=== PATIENT | male | born 1965 | race African-American/Black ===

== ENCOUNTER → 2023-09-20 11:20 | Outpatient (BNV) | payer MEDICAID, OTHER, SELFPAY | PROVIDERS: Visit Provider Internal Medicine Medical Oncology | DX: C90.30 Solitary plasmacytoma not having achieved remission (principal) | CPT/HCPCS: 99204; 99213 ==

== ENCOUNTER 2024-01-14 10:10 | Outpatient (REF) | payer OTHER, SELFPAY ==
--- NOTE | ~2024-01-14 | PE_ITS ---
EXAMINATION: PET/CT FUSION SKULL TO THIGH CLINICAL INDICATIONS: History of solitary plasmacytoma, restaging. COMPARISON: Outside PET study 08/07/2019 and last 02/25/[address] TECHNIQUE: Following intravenous administration of 19.6 mCi-18 FDG in right antecubital vein, whole-body PET scan from skull base to proximal thigh was obtained approximately 56 minutes later. 3-D CT imaging was obtained for correlative imaging without oral or IV contrast. Color fusion images were performed on a separate workstation and available for interpretation. Baseline glucose measures 10.3 mg/dL. DLP: 916 mGy-cm. FINDINGS: SKULL BASE: There is no abnormal metabolic activity seen in the skull base or visualized brain. On CT visualized intracranial brain parenchyma is unremarkable. The paranasal sinuses are well aerated and clear. NECK: There is abnormal metabolic activity seen in the left lateral pharyngeal wall with an SUV measuring 5.6 on axial PET slice 236/3. There is corresponding thickening left lateral pharyngeal wall on axial slice 236/2. Approximately the same plane on axial PET study there is a left lateral neck lymph node metabolic activity with SUV measurement of 3.7 which corresponds to a lymph node measuring [address] slice 235/2. There is a nonspecific punctate metabolic activity along the posterior wall of nasopharynx with SUV of 5.0 on axial PET slice 250/3. There is no corresponding abnormality seen on CT imaging. There is normal metabolic activity seen in bilateral thyroid lobes and anterior floor of the tongue related to muscular activity. The abnormal metabolic activity on the present scan is new since last PET study 02/25/2023. CHEST: No abnormal metabolic activity seen in the lung parenchyma, mediastinum, pleura or the axilla. The chest wall is unremarkable as well. On CT imaging the lungs are well expanded and clear. No pulmonary nodule, mass or consolidation seen. The mediastinum is unremarkable. The heart size and the great vessels are normal caliber. Thyroid lobes are symmetrical and normal. The axilla and chest wall is unremarkable. ABDOMEN AND PELVIS: There is normal metabolic activity seen in kidneys and ureter. On CT visualized solid organs are unremarkable. The gallbladder has been removed. A small accessory splenule seen along the inferior anterior tip. There are bilateral punctate calcifications in the kidneys question stones versus calcification. There is an exophytic cyst upper/midpole left kidney. The GI tract is unremarkable. No retroperitoneal lymph node seen. The bladder is nondistended. The prostate gland is normal size. MSK: No abnormal metabolic activity seen. Blood: SUV 1.51. Liver: SUV 2.83. Maximum SUV right kidney 11.49. PET/PET CT fusion skull to thigh IMPRESSION: 1. Abnormal metabolic activity in the left lateral pharyngeal wall and left lateral neck lymph node. 2. Nonspecific punctate metabolic activity along the posterior wall of nasopharynx without any corresponding abnormality on CT imaging. 3. No abnormal metabolic activity seen in the skull base, visualized brain, abdomen or pelvis. 4. Bilateral punctate calcifications in the kidneys question stones versus calcification. There is no hydronephrosis. There is an exophytic cyst upper/midpole left kidney. 5. Gallbladder has been removed. Mild constipation. Results were discussed directly by phone with Dr. Ladd at 10:25 AM.
== END 2024-01-14 10:11 | disposition home or self-care (01) ==
LOC: HO.PET 10:10
PROVIDERS: Visit Provider Internal Medicine Medical Oncology
DX: Z13.89 Encounter for screening for other disorder (principal)

== ENCOUNTER 2024-03-07 08:45 | Outpatient (REF) | payer OTHER, SELFPAY ==
[2024-03-07 09:27] LABS: Basophils Percent Auto 0.7 % (0-2); Eosinophils Absolute Auto 0.1 X10*3/uL (0.0-0.4); Eosinophils Percent Auto 3.4 % (0-4); Hematocrit 46.1 % (42.0-52.0); Hemoglobin 15.5 g/dl (14.0-18.0); Imm Gran Abs Auto 0.01 X10*3/uL (0.00-0.03); Imm Gran Pct Auto 0.2 % (0.0-0.4); Lymphocytes Absolute Auto 0.7 X10*3/uL (1.2-4.9); Lymphocytes Percent Auto 17.7 % (20-40); MANUAL DIFF FLAG NO; Mean Corpuscular HGB Conc 33.6 g/dl (31.0-36.0); Mean Corpuscular Volume 83.4 fL (80.0-98.0); Mean Platelet Volume 10.2 fL (9.4-12.4); Monocytes Absolute Auto 0.7 X10*3/uL (0.1-1.2); Monocytes Percent Auto 16.7 % (2-11); Neutrophils Absolute Auto 2.5 x10*3/uL (2.0-8.3); Neutrophils Percent Auto 61.3 % (45-73); Platelet Count 142 X10*3/uL (160-400); Red Blood Count 5.53 X10*6/uL (4.60-5.80); Red Cell Distribution Width 13.7 % (11.0-16.0); White Blood Count 4.1 X10*3/uL (4.8-10.8)
[2024-03-07 10:06] LABS: Creatinine Urine 113.84 mg/dL; Microalbum/Creatinine Ratio Ur 63.2 ug/mg cr (<30)
[2024-03-07 10:08] LABS: Alanine Aminotransferase 31 U/L (0-40); Albumin Level 4.4 g/dL (3.5-5.0); Alkaline Phosphatase 91 U/L (39-117); Anion Gap 14 (12-20); Aspartate Amino Transferase 24 U/L (5-37); Bilirubin Total 0.4 mg/dL (0.0-1.0); Blood Urea Nitrogen 21 mg/dL (9-16); Calcium 9.8 mg/dL (8.4-10.2); Carbon Dioxide 25 mmol/L (22-29); Chloride 105 mmol/L (96-108); Cholesterol 183 mg/dL (<200); Estimated Glomerular Filt Rate > 60; Glucose Random 93 mg/dL (60-115); HDL Cholesterol 41 mg/dL (>40); LDL Cholesterol Calculated 120 mg/dL (<100); Sodium 140 mmol/L (135-145); Total Protein 7.9 g/dL (6.5-8.0); Triglycerides 111 mg/dL (<150)
[2024-03-07 10:26] LABS: TSH reflex Free T4 3.49 uIU/mL (0.32-4.0)
== END 2024-03-07 08:46 | disposition home or self-care (01) ==
LOC: HO.LAB 08:45
PROVIDERS: PCP Family Medicine; Visit Provider Family Medicine
DX: I10 Essential (primary) hypertension (principal)
CPT/HCPCS: 36415; 80053; 80061; 82043; 82570; 84443; 85025

== ENCOUNTER 2024-03-20 15:51 | Outpatient (REF) | payer OTHER, SELFPAY ==
[2024-03-20 19:06] LABS: Influenza A PCR NEGATIVE (Negative); Influenza B PCR NEGATIVE (Negative); Resp Syncy Virus RNA Qual PCR NEGATIVE (Negative); SARS COV2 PCR INHOUSE NEGATIVE (Negative)
== END 2024-03-20 15:52 | disposition home or self-care (01) ==
LOC: HO.CHCLNP 15:51
PROVIDERS: Visit Provider Internal Medicine
DX: J06.9 Acute upper respiratory infection, unspecified (principal)
CPT/HCPCS: 0241U; 87070

== ENCOUNTER 2024-03-23 14:52 | Outpatient (AMB) | payer OTHER, SELFPAY ==
--- NOTE | 2024-03-23 14:59 | A.OFFVIS_ITS ---
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 He had a PET CT, 01/14/2024 which noted possible bilateral punctate renal stones versus renal vascular calcifications and exophytic renal cysts left kidney. The patient states that he has has kidney stones since 2014 and has had prior procedures including ureteroscopy and shockwave lithotripsy and he passed a stone about 3 years ago. His previous urologist told him he had calcium oxalate stones and to add lemon to his diet which he states that his has helped decrease his issues with making kidney stones. Discussed CT stone protocol and 24 hour urine collection further evaluation In addition he states that he has noticed erectile difficulties fgr about 3 years he consulted with online specialist and tried generic Viagra 25-50 mg which has not helped. He then tried Cialis 10 mg twice a day which has worked well for him. I will send a prescription for Cialis 10 mg twice a day weak with a GoodRx coupon to [facility] in [place]. [facility] Medical History Biceps tendon rupture High blood pressure disorder Surgical History Hx of hernia repair Hx laparoscopic cholecystectomy Hx of vasectomy Social History Household Members: Spouse Patient Tobacco Use Status: Never used Tobacco service: No Current occupational status: employed Review of Systems Const All systems reviewed & are unremarkable except as noted in HPI and below Reports no additional complaints Eyes Reports no additional complaints ENT Reports no additional complaints Card Reports no additional complaints Resp Reports no additional complaints GI Reports no additional complaints Reports as per HPI Musc Reports no additional complaints Skin/Breast Reports system reviewed and no additional complaints, except as documented Neuro Reports no additional complaints Psych Reports no additional complaints Endo Reports no additional complaints Mariusz/Lymph Reports no additional complaints Aller/Immun Reports no additional complaints Physical Exam Const General: healthy appearing, no acute distress and well developed Orientation/consciousness: patient oriented x3 HEENT Head: Yes normocephalic and Yes atraumatic Eyes Conjunctivae: conjunctivae normal Neck Neck: Yes normal visual inspection Chest Chest palpation & inspection: normal inspection of the chest Resp Effort & Inspection: normal respiratory effort GI Inspection: Yes normal to inspection Skin General skin exam: no rashes or lesions noted Neuro General: patient oriented x3 Extrem General: No pedal edema Psych Appearance: grossly normal Affect: normal affect Results AMB Urinalysis, Automated UA Leukoctes 0 Samir/uL Last Edit by KANDICE Valerio on 03/23/24 15:18 UA Nitrite Negative Last Edit by KANDICE Valerio on 03/23/24 15:18 UA Urobilinogen 0.2 mg/dL Last Edit by KANDICE Valerio on 03/23/24 15:1 8 UA Protein 30 mg/dL Last Edit by KANDICE Valerio on 03/23/24 15:18 1+ Shelton Vazquez 03/23/24 15:18 UA pH 5.5 Last Edit by KANDICE Valerio on 03/23/24 15:18 UA Blood 0 Jd/uL Last Edit by KANDICE Valerio on 03/23/24 15:18 UA Specific [place] 1.020 Last Edit by KANDICE Valerio on 03/23/24 15: 18 UA Ketone Positive Last Edit by KANDICE Valerio on 03/23/24 15:18 5 mg/dL Shelton Vazquez 03/23/24 15:18 UA Bilirubin 1 mg/dL Last Edit by KANDICE Valerio on 03/23/24 15:18 UA Glucose 0 mg/dL Last Edit by KANDICE Valerio on 03/23/24 15:18 Results Reviewed Results Reviewed: Laboratory Last Values Urine pH (Auto) 5.5 03/23/24 15:14 Specific [place] (Auto) 1.020 03/23/24 15:14 Urine Protein (Auto) 30 mg/dL 03/23/24 15:14 Glucose (UA)(Auto) 0 mg/dL 03/23/24 15:14 Urine Ketones (Auto) Positive 03/23/24 15:14 Urine Blood (Auto) 0 Jd/uL 03/23/24 15:14 Urine Nitrite (Auto) Negative 03/23/24 15:14 Urine Bilirubin (Auto) 1 mg/dL 03/23/24 15:14 Urine Urobilinogen (Auto) 0.2 mg/dL 03/23/24 15:14 Leukocyte Esterase (Auto) 0 Samir/uL 03/23/24 15:14 Date of Service: 01/14/24 EXAMINATION: PET/CT FUSION SKULL TO THIGH CLINICAL INDICATIONS: History of solitary plasmacytoma, restaging. COMPARISON: Outside PET study 08/07/2019 and last 02/25/[address] TECHNIQUE: Following intravenous administration of 19.6 mCi-18 FDG in right antecubital vein, whole-body PET scan from skull base to proximal thigh was obtained approximately 56 minutes later. 3-D CT imaging was obtained for correlative imaging without oral or IV contrast. Color fusion images were performed on a separate workstation and available for interpretation. Baseline glucose measures 10.3 mg/dL. DLP: 916 mGy-cm. FINDINGS: SKULL BASE: There is no abnormal metabolic activity seen in the skull base or visualized brain. On CT visualized intracranial brain parenchyma is unremarkable. The paranasal sinuses are well aerated and clear. NECK: There is abnormal metabolic activity seen in the left lateral pharyngeal wall with an SUV measuring 5.6 on axial PET slice 236/3. There is corresponding thickening left lateral pharyngeal wall on axial slice 236/2. Approximately the same plane on axial PET study there is a left lateral neck lymph node metabolic activity with SUV measurement of 3.7 which corresponds to a lymph node measuring [address] slice 235/2. There is a nonspecific punctate metabolic activity along the posterior wall of nasopharynx with SUV of 5.0 on axial PET slice 250/3. There is no corresponding abnormality seen on CT imaging. There is normal metabolic activity seen in bilateral thyroid lobes and anterior floor of the tongue related to muscular activity. The abnormal metabolic activity on the present scan is new since last PET study 02/25/2023. CHEST: No abnormal metabolic activity seen in the lung parenchyma, mediastinum, pleura or the axilla. The chest wall is unremarkable as well. On CT imaging the lungs are well expanded and clear. No pulmonary nodule, mass or consolidation seen. The mediastinum is unremarkable. The heart size and the great vessels are normal caliber. Thyroid lobes are symmetrical and normal. The axilla and chest wall is unremarkable. ABDOMEN AND PELVIS: There is normal metabolic activity seen in kidneys and ureter. On CT visualized solid organs are unremarkable. The gallbladder has been removed. A small accessory splenule seen along the inferior anterior tip. There are bilateral punctate calcifications in the kidneys question stones versus calcification. There is an exophytic cyst upper/midpole left kidney. The GI tract is unremarkable. No retroperitoneal lymph node seen. The bladder is nondistended. The prostate gland is normal size. MSK: No abnormal metabolic activity seen. Blood: SUV 1.51. Liver: SUV 2.83. Maximum SUV right kidney 11.49. IMPRESSION: 1. Abnormal metabolic activity in the left lateral pharyngeal wall and left lateral neck lymph node. 2. Nonspecific punctate metabolic activity along the posterior wall of nasopharynx without any corresponding abnormality on CT imaging. 3. No abnormal metabolic activity seen in the skull base, visualized brain, abdomen or pelvis. 4. Bilateral punctate calcifications in the kidneys question stones versus calcification. There is no hydronephrosis. There is an exophytic cyst upper/midpole left kidney. 5. Gallbladder has been removed. Mild constipation. Assessment & Plan Assessment & Plan (1) Kidney stone: Code(s): N20.0 - Calculus of kidney Category: Medical (2) Erectile dysfunction: Code(s): N52.9 - Male erectile dysfunction, unspecified Category: Medical Plan CTKUB, 24 hr urine, cialis 10 mg 2 times a wk Orders: Orders CT abdomen pelvis wo IV con 03/23/24 N20.0 - Calculus of kidney AMB Urinalysis Automated 03/23/24 Z13.9 - Encounter for screening, unspecified Medications: New tadalafil (Cialis) administer approximately 30min before sexual activity; do not use more than 1 dose per 48hrs [id number] [facility] [id number] Member [id number] 10 mg PO .2x week PRN 30 tabs 2RF sexual activity Patient Instructions: The patient had an opportunity to ask questions regarding treatment plan. The patient expressed understanding and agreement with the above treatment plan. The patient is aware they should contact our office by phone for worsening of their current condition or the appearance of new symptoms. Compliance is encouraged with any medications and followup testing that is ordered. It is a privilege to be allowed the opportunity to participate in the urologic care of your patient. If you have any questions or concerns regarding treatment for the above conditions please do not hesitate to contact me. The office telephone contact is [phone]. This note is constructed in part using voice recognition software. While every effort has been made to ensure accuracy data processing clerk errors may have been included. Yours sincerely, Daisy Steven MD Coding Level of Care Code New Pt Level 4 (48581) Diagnoses Kidney stone N20.0 Erectile dysfunction N52.9
== END 2024-03-23 15:56 | disposition home or self-care (01) ==
PROVIDERS: Visit Provider Urology
DX: N20.0 Calculus of kidney (principal); N52.9 Male erectile dysfunction, unspecified
CPT/HCPCS: 99204

== ENCOUNTER → 2024-03-23 14:52 | Outpatient (BNVA) | payer OTHER, SELFPAY | PROVIDERS: Visit Provider Urology | DX: N20.0 Calculus of kidney (principal); N52.9 Male erectile dysfunction, unspecified | CPT/HCPCS: 81003 ==

== ENCOUNTER 2024-03-31 07:32 | Outpatient (REF) | payer OTHER, SELFPAY ==
--- NOTE | ~2024-03-31 | XR_ITS ---
EXAMINATION: XR KNEE, RIGHT CLINICAL INFORMATION: Pain in right knee. COMPARISON: None available. TECHNIQUE: Three views of the right knee. FINDINGS: Moderate joint effusion. Mild narrowing along the medial aspect of the patellofemoral compartment. Tiny medial and posterior patellar osteophytes. Mild narrowing of the lateral compartment. Minimal narrowing of the medial compartment. XR/XR knee RT 3V IMPRESSION: Moderate joint effusion. Mild degenerative changes.
== END 2024-03-31 07:33 | disposition home or self-care (01) ==
LOC: HO.HOSX 07:32
PROVIDERS: Visit Provider Orthopaedic Surgery
DX: M25.561 Pain in right knee (principal)
CPT/HCPCS: 73562

== ENCOUNTER 2024-03-31 14:46 | Outpatient (AMB) | payer OTHER, SELFPAY ==
--- NOTE | 2024-03-31 14:47 | MHC.OFFVIS ---
Vital Signs 03/31/24 14:48 Height 5 ft 7 in Weight 208 lb BMI 32.6 Intake Visit Reasons: R knee pain- never had surgery on said knee Intake Note: Ward is a 58 year old male who presents as a new patient with Right knee pain and locking. The patient states that he injured his right knee approximately 6 months ago when he twisted his knee while getting out of his truck. He denies any symptoms prior to that injury. He has tried Tylenol and anti-inflammatory medicines which gave him minimal relief. He has also done physical therapy exercises which aggravated his pain. Has failed the last 6 weeks of conservative treatment. He states that his right knee will lock several times per day. Patient reports his pain has started in November of 2023 after he slipped from his SUV and is a 8 on the 1-10 pain scale. He is using aleve, mortin, heat, and ice for the pain with little relief. He denies surgery and injections. Allergies No Known Allergies Allergy (Verified 03/31/24 15:04) Medication List - Last Reconciled 04/01/24 by Darwin Leach MD alfuzosin ER 10 mg PO QAM amlodipine 10 mg PO DAILY gabapentin 300 mg PO BEDTIME [id number]-zjxlb-cqq-[id number] 375-150-125 mg 375 tabs PO DAILY metoprolol succinate ER 100 mg PO QAM rosuvastatin 40 mg PO DAILY tadalafil (Cialis) 10 mg PO .2x week PRN PFSH Medical History Biceps tendon rupture High blood pressure disorder Surgical History Hx of hernia repair Hx laparoscopic cholecystectomy Hx of vasectomy Social History Household Members: Spouse Patient Tobacco Use Status: Never used Tobacco service: No Current occupational status: employed Physical Exam Vital Signs: BMI result Body Mass Index 32.6 Const Other: Well-nourished well-developed very friendly male awake alert and oriented x3 in no acute distress Extrem Other: Bilateral lower extremity examination shows good capillary refill, no skin lesions noted, normal sensation light touch Right knee examination shows a minimal effusion, minimal crepitus with range of motion, tenderness along his medial and lateral joint lines, positive Marj's test, no instability Results Reviewed Results Reviewed: Standing full weight-bearing x-rays of the patient's right knee show mild joint space narrowing, no acute bony abnormalities Assessment & Plan Assessment & Plan (1) Right knee pain: Code(s): M25.561 - Pain in right knee Category: Medical Plan Mr. Alvarado presents with right knee pain and mechanical symptoms most likely due to tearing of his medial and lateral menisci. Thus, I will send the patient for an MRI of his right knee for further evaluation. I will see him back once the MRI is completed to discuss the findings and treatment options. Feel free to call me at any time should questions regarding his orthopedic management arise. Thank you very much for asking me to see this very friendly gentleman. I spent 22 minutes in reviewing the patient's records and imaging studies, seeing the patient and documenting in the medical record. Orders: Orders XR knee RT 3V 03/31/24 M25.561 - Pain in right knee MR knee RT wo con Today M25.561 - Pain in right knee Coding Level of Care Code New Pt Level 3 (33204) Diagnoses Right knee pain M25.561
[2024-03-31 14:48] VITALS: BMI 32.6
== END 2024-03-31 15:24 | disposition home or self-care (01) ==
PROVIDERS: PCP Family Medicine; Visit Provider Orthopaedic Surgery
DX: M25.561 Pain in right knee (principal)
CPT/HCPCS: 99203

== ENCOUNTER 2024-04-16 09:01 | Outpatient (AMB) | payer OTHER, SELFPAY ==
--- NOTE | 2024-04-16 09:03 | MHC.OFFVIS ---
Intake Visit Reasons: OV- MRI Review RT Knee Intake Note: Ward is a 58 year old male who presents with complaints of progressively worsening right knee pain and locking. The patient states that he injured his right knee approximately 9 months ago when he twisted his knee while getting out of his truck. He denies any symptoms prior to that injury. He has tried Tylenol and anti-inflammatory medicines which gave him minimal relief. He has also done physical therapy exercises which aggravated his pain. Has failed the last 6 weeks of conservative treatment. He states that his right knee will lock several times per day. Allergies No Known Allergies Allergy (Verified 04/16/24 09:03) Medication List - Last Reconciled 04/16/24 by Darwin Leach MD alfuzosin ER 10 mg PO QAM amlodipine 10 mg PO DAILY vtcjnkemte-buvxp-ley-ivonne-115HC 375-150-125 mg 375 tabs PO DAILY metoprolol succinate ER 100 mg PO QAM rosuvastatin 40 mg PO DAILY tadalafil (Cialis) 10 mg PO .2x week PRN PFSH Medical History Biceps tendon rupture High blood pressure disorder Surgical History Hx of hernia repair Hx laparoscopic cholecystectomy Hx of vasectomy Social History Household Members: Spouse Patient Tobacco Use Status: Never used Tobacco service: No Current occupational status: employed Physical Exam Const Other: Well-nourished well-developed very friendly male awake alert and oriented x3 in no acute distress Extrem Other: Bilateral lower extremity examination shows good capillary refill, no skin lesions noted, normal sensation light touch Right knee examination shows a minimal effusion, minimal crepitus with range of motion, tenderness along his medial and lateral joint lines, no instability Results Reviewed Results Reviewed: Standing full weight-bearing x-rays of the patient's right knee show mild joint space narrowing, no acute bony abnormalities MRI of the patient's right knee shows mild degenerative changes as well as tearing of his medial and lateral menisci, no acute bony Assessment & Plan Assessment & Plan (1) Tear of medial meniscus of right knee: Code(s): S83.241A - Other tear of medial meniscus, current injury, right knee, initial encounter Category: Medical Plan Mr. Alvarado presents with progressively worsening right knee pain and mechanical cc tearing of his medial and lateral menisci. I had a lengthy discussion with the patient regarding the treatment options. At this point he has failed continued non operative treatments. The risks and benefits of right knee arthroscopic surgery were discussed at length with the patient. The patient wishes to proceed with surgery. Surgery will most likely involve right knee diagnostic arthroscopy with arthroscopic partial medial and lateral meniscectomies. The patient will be scheduled for next available date. He will follow-up as instructed. Feel free to call me at any time should questions regarding his orthopedic management arise. I spent 20 minutes in reviewing the patient's records and imaging studies, seeing the patient and documenting in the medical record. Coding Level of Care Code Est Pt Level 3 (34282) Diagnoses Tear of medial meniscus of right knee S83.241A
== END 2024-04-16 09:29 | disposition home or self-care (01) ==
PROVIDERS: PCP Family Medicine; Visit Provider Orthopaedic Surgery
DX: S83.241A Other tear of medial meniscus, current injury, right knee, initial encounter (principal)
CPT/HCPCS: 99214

== ENCOUNTER → 2024-04-16 09:01 | Outpatient (BNVA) | payer OTHER, SELFPAY | PROVIDERS: PCP Family Medicine; Visit Provider Orthopaedic Surgery ==

== ENCOUNTER 2024-08-13 12:33 | Outpatient (AMB) | payer OTHER, SELFPAY ==
--- NOTE | 2024-08-13 12:41 | MHC.OFFVIS ---
Intake Visit Reasons: Preop RT knee 08/21/24 DR Intake Note: Ward is a 58 year old male who presents with complaints of progressively worsening right knee pain and locking. The patient states that he injured his right knee approximately 9 months ago when he twisted his knee while getting out of his truck. He denies any symptoms prior to that injury. He has tried Tylenol and anti-inflammatory medicines which gave him minimal relief. He has also done physical therapy exercises which aggravated his pain. Has failed the last 6 weeks of conservative treatment. He states that his right knee will lock several times per day. Allergies No Known Allergies Allergy (Verified 08/13/24 12:43) Medication List - Last Reconciled 08/13/24 by Darwin Leach MD alfuzosin ER 10 mg PO QAM amlodipine 10 mg PO DAILY iviegaafnb-uykpm-qln-ivonne-115HC 375-150-125 mg 375 tabs PO DAILY metoprolol succinate ER 100 mg PO QAM rosuvastatin 40 mg PO DAILY tadalafil (Cialis) 10 mg PO .2x week PRN PFSH Medical History Biceps tendon rupture High blood pressure disorder Surgical History Hx of hernia repair Hx laparoscopic cholecystectomy Hx of vasectomy Social History Household Members: Spouse Patient Tobacco Use Status: Never used Tobacco service: No Current occupational status: employed Physical Exam Const Other: Well-nourished well-developed very friendly male awake alert and oriented x3 in no acute distress Extrem Other: Bilateral lower extremity examination shows good capillary refill, no skin lesions noted, normal sensation light touch Right knee examination shows a minimal effusion, minimal crepitus with range of motion, tenderness along his medial and lateral joint lines, positive Marj's test, no instability Results Reviewed Results Reviewed: Standing full weight-bearing x-rays of the patient's right knee show mild diffuse joint space narrowing, no acute bony abnormalities MRI of the patient's right knee shows mild diffuse degenerative changes as well as tearing of his medial and lateral menisci, acute bony abnormalities Assessment & Plan Assessment & Plan (1) Tear of medial meniscus of right knee: Code(s): S83.241A - Other tear of medial meniscus, current injury, right knee, initial encounter Category: Medical Plan Mr. Alvarado presents with progressively worsening right knee pain and mechanical symptoms due to tearing of his medial and lateral menisci. I had a lengthy discussion with the patient regarding the treatment options. At this point he has failed continued non operative treatments. The risks and benefits of right knee arthroscopic surgery were discussed at length with the patient. The patient wishes to proceed with surgery. Surgery will most likely involve right knee diagnostic arthroscopy with arthroscopic partial medial and lateral meniscectomies. The patient was given a prescription for oxycodone at his preoperative appointment. He will follow-up as instructed. Feel free to call me at any time should questions regarding his orthopedic management arise. I spent 22 minutes in reviewing the patient's records and imaging studies, seeing the patient and documenting in the medical record. Medications: New oxycodone Partial Fill upon patient request. 5 mg PO Q6H PRN 20 tabs 0RF pain Coding Level of Care Code Est Pt Level 3 (51303) Complex EM visit Add On G2211 Diagnoses Tear of medial meniscus of right knee S83.241A
== END 2024-08-13 12:52 | disposition home or self-care (01) ==
PROVIDERS: PCP Family Medicine; Visit Provider Orthopaedic Surgery
DX: S83.241A Other tear of medial meniscus, current injury, right knee, initial encounter (principal)
CPT/HCPCS: 99214

== ENCOUNTER → 2024-08-13 12:33 | Outpatient (BNVA) | payer OTHER, SELFPAY | PROVIDERS: PCP Family Medicine; Visit Provider Orthopaedic Surgery ==

== ENCOUNTER 2024-08-14 16:23 | Outpatient (REF) | payer OTHER, SELFPAY ==
--- NOTE | ~2024-08-14 | CT_ITS ---
EXAMINATION: CT ABDOMEN AND PELVIS WITHOUT CONTRAST CLINICAL INFORMATION: Calculus of the kidney COMPARISON: CT from an outside institution dated February 20, 2023. TECHNIQUE: Multidetector volumetric imaging was performed from the superior aspect of the liver through the pubic symphysis. Sagittal and coronal reformatted images were obtained on the technologist's workstation. This CT examination was performed using dose optimization techniques as appropriate, variously including the following: *Automated exposure control *Adjustment of mA and/or kV according to patient size (this includes techniques or standardized protocols for targeted exams where dose is matched to indication/reason for exam; i.e. extremities or head) *Use of iterative reconstruction technique DLP: 604 mGy-cm FINDINGS: Submitted for interpretation on October 13, 2024. Limited evaluation of the intra-abdominal organs and vascular structures due to lack of IV contrast. 1.5 mm calcified nodule in the right lung bases and lingula are likely granulomata. LIVER, GALLBLADDER, AND BILIARY TREE: Liver measures 15 cm. Questionable low density right hepatic lobe too small to be fully characterized. Status post cholecystectomy. No intrahepatic or extrahepatic biliary ductal dilatation. PANCREAS: No peripancreatic fluid collections. No main pancreatic ductal dilatation. SPLEEN: 10 cm. ADRENAL GLANDS: No nodular lesions. KIDNEYS AND URETERS: Right kidney: Multiple, punctate, less than 2 mm calculi throughout the pelvicalyceal system. No hydronephrosis. 1.5 cm hypodensities in the corticomedullary junction and parapelvic, midportion. Nodular/ lobulations.. Left kidney: Multifocal punctate, less than 2 mm calculi throughout the pelvicalyceal system. No hydronephrosis. There is an exophytic, 1.2 cm fluid density lesion in the lateral lower pole. Nodular/ lobulations. BLADDER: Fluid filled and collapsed. GASTROINTESTINAL TRACT: No intestinal obstruction pattern. Abundant stool, large intestine. Appendix is normal. No pneumatosis intestinalis. No pneumoperitoneum. No ascites. ABDOMINAL WALL: Fat-containing umbilical hernia, small. Fat-containing right inguinal hernia. LYMPH NODES: Nonspecific prominent less than 1 cm lymph nodes in the mesenteric and retroperitoneal. VASCULAR: Calcified plaques, abdominal aorta. No aneurysm. PELVIC VISCERA: The prostate gland and seminal vesicles are not enlarged. OSSEOUS STRUCTURES: Multilevel spondylosis more conspicuous at L4-5 and L5-S1 resulting in bilateral neuroforamina stenosis and likely central spinal canal stenosis. CT/CT abdomen pelvis wo IV con IMPRESSION: Nonobstructing nephrolithiasis, bilaterally. Abnormal kidneys. Bilateral renal cysts. 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 Fat-containing umbilical and right inguinal hernias. Fleischner guidelines were followed. Electronically signed by: Carl Arroyo MD 10/13/2024 02:43 PM EST
== END 2024-08-14 16:24 | disposition home or self-care (01) ==
LOC: HO.CT 16:23
PROVIDERS: PCP Family Medicine; Visit Provider Urology
DX: N20.0 Calculus of kidney (principal)
CPT/HCPCS: 74176

== ENCOUNTER → 2024-08-14 16:25 | Outpatient (BNV) | payer OTHER, SELFPAY | PROVIDERS: PCP Family Medicine; Visit Provider Radiology Diagnostic Radiology | DX: N20.0 Calculus of kidney (principal) | CPT/HCPCS: 74176 ==

== ENCOUNTER 2024-08-21 09:00 | Day surgery (SDC) | payer OTHER, SELFPAY ==
[2024-08-19 11:06] VITALS: BMI 32.6
--- NOTE | 2024-08-19 12:30 | HO.ANESPROP2 ---
Documented by User: Baylee Lyn NP 08/19/24 12:31 HPI - Anesthesia Eval Consult details Narrative: 58yo M for Right Knee Arthroscopy with lateral and medial meniscectomy Follows [facility] [place] Onc: Hx plasmacytoma s/p excision of cervical lymphnode 2019 PMF Active Problems Active Problems: All Active Problems Tear of medial meniscus of right knee (Acute) Right knee pain (Acute) Erectile dysfunction (Acute) Kidney stone (Acute) Plasmacytoma (Acute) Past Medical History Medical History Elevated cholesterol Plasmacytoma Erectile dysfunction Kidney stone Biceps tendon rupture High blood pressure disorder Surgical History Surgical History Hx of excision of mass Hx of hernia repair Hx laparoscopic cholecystectomy Hx of vasectomy Social History Social History Household Members: Spouse Are you a primary animal care provider to a significant other at home: No Do you presently have visiting nurse or other home services: No Patient Tobacco Use Status: Never used Tobacco Have you been hit, kicked, punched, or otherwise hurt by someone within the past year? If so, by whom?: No Are you DNR?: No Advance Directives: No Advance Directives Information Provided: Yes Recently lost weight without trying: No Nutrition Risks: No Nutritional Risk service: No Current occupational status: employed Meds Allergies Allergy/AdvReac Type Severity Reaction Status Date / Time No Known Allergies Allergy Verified 08/21/24 09:37 Home Medications ?Medication ?Instructions ?Recorded ?Confirmed ?Last Taken ?Type alfuzosin 10 mg tablet,extended 10 mg PO QAM 09/20/23 08/19/24 Unknown History release 24 hr aqnbvvvflsb-nirpcbffzy-pct-calcium-155herb 375 tab PO DAILY 09/20/23 08/19/24 Unknown History 375 mg-150 mg-125 mg tablet metoprolol succinate 100 mg 100 mg PO QAM 09/20/23 08/19/24 Unknown History tablet,extended release 24 hr amlodipine 10 mg tablet 10 mg PO DAILY 03/23/24 08/19/24 Unknown History rosuvastatin 40 mg tablet 40 mg PO DAILY 03/23/24 08/19/24 Unknown History Exam Height,Weight and Vital Signs: Height 5 ft 7 in Weight 94.347 kg Pertinent Lab Results Pertinent Lab Results: Laboratory Tests 08/14/24 15:46 WBC 4.5 L Hgb 13.6 L Hct 40.9 L Plt Count 142 L Sodium 143 Potassium 4.0 Chloride 109 H Carbon Dioxide 26 BUN 30 H Creatinine 1.26 Assessment and Plan Assessment Anesthesia Assessment: Chart Reviewed Documented by User: Ely Townsend MD 08/21/24 09:52 PMFSH Past Medical History Medical History Elevated cholesterol Plasmacytoma Erectile dysfunction Kidney stone Biceps tendon rupture High blood pressure disorder Surgical History Surgical History Hx of excision of mass Hx of hernia repair Hx laparoscopic cholecystectomy Hx of vasectomy History of Problems with Anesthesia: No Social History Social History Household Members: Spouse Are you a primary animal care provider to a significant other at home: No Do you presently have visiting nurse or other home services: No Patient Tobacco Use Status: Never used Tobacco Have you been hit, kicked, punched, or otherwise hurt by someone within the past year? If so, by whom?: No Are you DNR?: No Advance Directives: No Advance Directives Information Provided: Yes Recently lost weight without trying: No Nutrition Risks: No Nutritional Risk service: No Current occupational status: employed Meds Allergies Allergy/AdvReac Type Severity Reaction Status Date / Time No Known Allergies Allergy Verified 08/21/24 09:37 Home Medications ?Medication ?Instructions ?Recorded ?Confirmed ?Last Taken ?Type alfuzosin 10 mg tablet,extended 10 mg PO QAM 09/20/23 08/19/24 Unknown History release 24 hr rvvbojaxvli-juciiantni-eud-calcium-155herb 375 tab PO DAILY 09/20/23 08/19/24 Unknown History 375 mg-150 mg-125 mg tablet metoprolol succinate 100 mg 100 mg PO QAM 09/20/23 08/19/24 Unknown History tablet,extended release 24 hr amlodipine 10 mg tablet 10 mg PO DAILY 03/23/24 08/19/24 Unknown History rosuvastatin 40 mg tablet 40 mg PO DAILY 03/23/24 08/19/24 Unknown History Exam Airway Mallampati Class: III TM Dist: >3cm Neck ROM: Full Loose/Missing/Broken Teeth: No Heart: RRR Lungs: CTA Assessment and Plan Assessment Anesthesia Assessment: Anesthesia Plan Discussed Final Anesthetic Review History of Problems with Anesthesia: No NPO: Yes ASA Class: II Final Preanesthetic Review: Meds/Allgs Chart Reviewed, Consent Obtained/Reviewed and Anes Risks/Benef Reviewed Patient Risk: Low Procedure Risk: Low Anesthetic Plan Anesthetic Plan: GA Disposition: Standard PACU
[2024-08-21] VITALS (7 sets, daily range): BP systolic 115–133; BP diastolic 74–84; PULSE 72–79; RESP 16–18; TEMP 36.2–36.8; O2SAT 96–98; BMI 30.5
[2024-08-21] MEDS: Lactated Ringers 1,000 ML 100 ML IVCONT (09:38)
--- NOTE | 2024-08-21 11:31 | P.BOP_ITS ---
Brief Operative Note Date of Service: 08/21/24 Pre-op diagnosis: Right knee medial meniscus tear, right knee lateral meniscus tear Post-op diagnosis: same Procedure: Right knee diagnostic arthroscopy with right knee arthroscopic partial medial and lateral meniscectomies Implants: none Surgeon: Darwin Leach MD Anesthesia: GLMA Was an Subscription Crew Leader used for this Procedure?: No Estimated blood loss (mL): 10 Pathology: none sent Condition: stable Disposition: PACU
--- NOTE | 2024-08-21 11:35 | W.PM.OPN ---
Operative Note Operative Note Date of Service: 08/21/24 Narrative: After the patient was identified as Ward Alvarado and his right knee was initialed by myself they were brought to the operating room where general anesthesia was induced by the anesthesiologist in routine fashion. The patient was given 2 g of IV Ancef for infection prophylaxis. A formal time-out was completed. The patient's right lower extremity was prepped and draped in sterile fashion. Marcaine with epinephrine was injected into the planned incision sites as well as their right knee joint. A # 11 scalpel blade was used to make an anterolateral portal 1 cm proximal to the joint line and 1 cm lateral to the patellar tendon. Blunt trocar technique was used into the suprapatellar pouch with the knee in extension. Diagnostic arthroscopy showed multiple bands of thickened plica which would be excised at the end of the procedure. There were no loose bodies or abnormalities found in either the medial or lateral gutters. There were diffuse grades 1 and 2 degenerative changes of the undersurface of the patella as well as grade 1 degenerative changes of the trochlear groove. The patient's knee was flexed to 45 degrees and a valgus force was placed upon it. The medial compartment was entered. An anteromedial portal was made 1 cm proximal to the joint line and 1 cm medial to the patellar tendon. Probing of the medial meniscus showed a radial tear of the anterior horn. A partial medial meniscectomy was performed using the arthroscopic shaver. Following the partial meniscectomy the remainder of the meniscus tissue was stable. There were diffuse grade 1 degenerative changes of the medial femoral condyle and medial tibial plateau. The patient's knee was then placed into a neutral position. There was no injury to the anterior cruciate ligament. The patient's knee was then placed into the figure of 4 position and the lateral compartment was entered. There were minimal degenerative changes of the lateral femoral condyle and lateral tibial plateau. There was a radial tear of the anterior horn of the lateral meniscus. A partial lateral meniscectomy was performed using the arthroscopic shaver. Following the meniscectomy the remainder of the meniscus tissue was stable.. The patient's knee was once again brought into extension and the suprapatellar pouch was entered. The arthroscopic shaver and the ArthroCare Wand were used to excise the thickened bands of plica. The undersurface of the patella was then made smooth using the arthroscopic shaver. The knee joint was irrigated and then drained. All arthroscopic instruments were removed. The 2 portals were closed with 3-0 nylon interrupted suture. The knee joint was injected with Marcaine. Dry sterile dressing and Jerardo bandages were placed over the patient's knee. The patient was awoken and extubated in the operating room. They were transferred to the recovery room in stable condition.
[2024-08-21] MEDS: cefTRIAXone sodium 1 GM VIAL IVPUSH (11:39)
== END 2024-08-21 12:31 | disposition home or self-care (01) ==
PROVIDERS: PCP Family Medicine; Visit Provider Orthopaedic Surgery
PROC: (CPT 29870; principal; 2024-08-21 10:30)
DX: S83.281A Other tear of lateral meniscus, current injury, right knee, initial encounter (principal); S83.241A Other tear of medial meniscus, current injury, right knee, initial encounter; M67.51 Plica syndrome, right knee; M17.11 Unilateral primary osteoarthritis, right knee; X50.1XXA Overexertion from prolonged static or awkward postures, initial encounter; Y93.89 Activity, other specified; Y92.812 Truck as the place of occurrence of the external cause; Y99.9 Unspecified external cause status; I10 Essential (primary) hypertension; Z79.899 Other long term (current) drug therapy; Z98.890 Other specified postprocedural states
CPT/HCPCS: 29880; 29876; J0131; J0171; J0690; J0696; J1100; J1885; J2003; J2405; J2704; J2795; J3010

== ENCOUNTER → 2024-08-21 09:00 | Outpatient (BNV) | payer OTHER, SELFPAY | PROVIDERS: PCP Family Medicine; Visit Provider Orthopaedic Surgery | DX: S83.241A Other tear of medial meniscus, current injury, right knee, initial encounter (principal); S83.281A Other tear of lateral meniscus, current injury, right knee, initial encounter | CPT/HCPCS: 29880 ==

== ENCOUNTER 2024-08-24 10:30 | Emergency (ER) | payer OTHER, SELFPAY ==
--- NOTE | ~2024-08-24 | XR_ITS ---
EXAMINATION: XR SHOULDER, LEFT XR ELBOW, LEFT CLINICAL INFORMATION: Left shoulder and left elbow pain following a fall. COMPARISON: PET/CT dated 01/14/2024. TECHNIQUE: AP, Grashey, and scapular Y views of the left shoulder. AP, oblique, and lateral views of the left elbow. FINDINGS: LEFT SHOULDER: No acute fracture or dislocation. No joint space narrowing or marginal osteophytes. No osseous erosion. Small bone island within the humeral head. LEFT ELBOW: No acute fracture or dislocation. No joint space narrowing or marginal osteophytes. No osseous erosion. No significant joint effusion. Tiny olecranon enthesophyte. Redemonstration of a metallic foreign body within the anterior soft tissues at the level of the distal humeral diaphysis measuring up to 1.0 cm, unchanged when compared to the PET/CT. XR/XR elbow LT min 3V IMPRESSION: Left Shoulder: No acute osseous abnormality. Left Elbow: No acute osseous abnormality. Redemonstration of a metallic foreign body within the anterior soft tissues at the level of the distal humeral diaphysis, unchanged. Electronically signed by: Jose Irizarry MD 08/24/2024 02:07 PM EDT
--- NOTE | ~2024-08-24 | XR_ITS ---
EXAMINATION: XR SHOULDER, LEFT XR ELBOW, LEFT CLINICAL INFORMATION: Left shoulder and left elbow pain following a fall. COMPARISON: PET/CT dated 01/14/2024. TECHNIQUE: AP, Grashey, and scapular Y views of the left shoulder. AP, oblique, and lateral views of the left elbow. FINDINGS: LEFT SHOULDER: No acute fracture or dislocation. No joint space narrowing or marginal osteophytes. No osseous erosion. Small bone island within the humeral head. LEFT ELBOW: No acute fracture or dislocation. No joint space narrowing or marginal osteophytes. No osseous erosion. No significant joint effusion. Tiny olecranon enthesophyte. Redemonstration of a metallic foreign body within the anterior soft tissues at the level of the distal humeral diaphysis measuring up to 1.0 cm, unchanged when compared to the PET/CT. XR/XR shoulder LT min 2V IMPRESSION: Left Shoulder: No acute osseous abnormality. Left Elbow: No acute osseous abnormality. Redemonstration of a metallic foreign body within the anterior soft tissues at the level of the distal humeral diaphysis, unchanged. Electronically signed by: Jose Irizarry MD 08/24/2024 02:07 PM EDT
[2024-08-24 11:13] VITALS: BP 139/91; PULSE 77; RESP 16; TEMP 36.4; O2SAT 98; BMI 31.2
--- NOTE | 2024-08-24 11:15 | ED_ITS ---
HPI - General Adult General Chief complaint: Fall Stated complaint: Fall - L shoulder pain Time Seen by Provider: 08/24/24 12:28 Source: patient Mode of arrival: ambulatory Limitations: physical limitation (shoulder pain, self immobilization) History of Present Illness HPI narrative: 58 yo male PMH medial meniscus tear s/p athroscopy 08/21/24 R side, plasmacytoma, ED, presenting for Left shoulder and Left elbow pain. States s/p fall on Saturday night while walking to in middle of night, was dark, slid himself down the door frame trying to preserve knee that had recent procedure. Is holding left arm in adduction across chest, states he can only tolerate the pain when he is immobilizing the arm like this and not moving. Pain covers posterior shoulder area from his wing to the middle spine he states. Elbow is less painful and localized. Denies head strike, denies LOC, denies numbness and tingling. Hand and digits have full ROM, shoulder is very limited ROM r/t being very painful. States had been treating pain with the pain medication from his knee procedure (5mg oxycodone), but it is not lasting and he is no longer able to tolerate the pain. Denies change in temperature or sensation. Onset (ago): day(s) Location: left and upper extremity Radiation: non-radiation and extremity Pain Consistency: constant Relieving factors: immobilization and medication Exacerbating factors: movement Associated symptoms: denies other symptoms Treatments prior to arrival: NSAID, splint (self) and other (oxycodone 5mg) Related Data Home Medications ?Medication ?Instructions ?Recorded ?Confirmed alfuzosin 10 mg tablet,extended 10 mg PO QAM 09/20/23 08/19/24 release 24 hr itcjjgcnsqh-mynzfluczc-aps-calcium-155herb 375 tab PO DAILY 09/20/23 08/19/24 375 mg-150 mg-125 mg tablet metoprolol succinate 100 mg 100 mg PO QAM 09/20/23 08/19/24 tablet,extended release 24 hr amlodipine 10 mg tablet 10 mg PO DAILY 03/23/24 08/19/24 rosuvastatin 40 mg tablet 40 mg PO DAILY 03/23/24 08/19/24 Previous Rx's ?Medication ?Instructions ?Recorded tadalafil 10 mg tablet (Cialis) 10 mg PO .2x week PRN sexual 03/23/24 activity #30 tabs oxycodone 5 mg tablet 5 mg PO Q6H PRN pain #20 tabs 08/13/24 cyclobenzaprine 10 mg tablet 10 mg PO TID PRN muscle spasm #10 08/24/24 tabs lidocaine 5 % topical patch 1 patch topical DAILY #15 ea 08/24/24 Allergies Allergy/AdvReac Type Severity Reaction Status Date / Time No Known Allergies Allergy Verified 08/24/24 11:17 [facility] Past Medical History Medical History Elevated cholesterol Plasmacytoma Erectile dysfunction Kidney stone Biceps tendon rupture High blood pressure disorder Surgical History Hx of excision of mass Hx of hernia repair Hx laparoscopic cholecystectomy Hx of vasectomy Social History Social History Household Members: Spouse Are you a primary plant care worker to a significant other at home: No Do you presently have visiting nurse or other home services: No Patient Tobacco Use Status: Never used Tobacco Advance Directives: No Advance Directives Information Provided: Yes Do you have a plan to hurt others: No Plan service: No Current occupational status: employed Physical Exam ED Vital Signs: Vital Signs - 24 hr 08/24/24 11:13 08/24/24 16:46 Temperature 97.5 F 97.6 F Pulse Rate 77 74 Respiratory Rate 16 18 Blood Pressure 139/91 H 131/81 Pulse Oximetry 98 96 Oxygen Delivery Method Room Air Room Air BMI result Body Mass Index 31.2 Appearance: Alert. Oriented X3. No acute distress. Head: normocephalic, atraumatic. Eyes: Pupils equal, round and reactive to light. ENT: Pharynx normal. No tonsillar swelling or exudate. Neck: Normal inspection. Neck supple. CVS: Normal heart rate and rhythm. Pulses normal. Respiratory: No respiratory distress. Breath sounds normal. Abdomen: Soft and nontender. +BS x4 Skin: Skin warm and dry. Normal skin color. Normal skin turgor. No rashes. Extremities: RLE s/p knee arthroscopy. LUE limited ROM, painful, held in adduction. BUE CAP refill, less than 3 seconds. Neuro/psych: Oriented X 3. No motor deficit. No sensory deficit. CN II-XII intact. Normal speech and cognition. Extrem Right upper extremity: normal capillary refill Left upper extremity: normal capillary refill, shoulder/upper arm Details: tenderness and abnormal ROM Details: held in an abnormal fashion Details: in ADduction, pain with active ROM and pain with passive ROM, elbow/forearm Details: tenderness Location: of the olecranon and hand Details: normal to inspection, normal capillary refill, neuromotor exam normal, neurosensory exam normal and normal ROM of fingers Course Course Course Narrative: RME performed by Christy Young PA-C. Patient is a 58 year old assigned male at presenting to the emergency department with left elbow and shoulder pain. Patient states he had a trip and fall, landing on a door frame with his left shoulder and elbow. Detailed physical exam and review of systems are deferred to the ecmo specialist. Imaging ordered. Patient placed back in the waiting room pending room availability and results. Medications Administered Discontinued Medications Generic Name Dose Route Start Last Admin Trade Name Domq PRN Reason Stop Dose Admin Cyclobenzaprine HCl 10 mg 08/24/24 15:02 08/24/24 15:15 Cyclobenzaprine Hcl 10 Mg Tablet PO 08/24/24 15:03 10 mg ONCE ONE Administration Ketorolac Tromethamine 30 mg 08/24/24 15:02 08/24/24 15:16 Ketorolac Tromethamine 30 Mg/Ml Vial IM 08/24/24 15:03 30 mg ONCE ONE Administration Medical Decision Making Medical Decision Making [facility] Narrative: 58 yo male PMH medial meniscus tear s/p athroscopy 08/21/24 R side, plasmacytoma, ED, presenting for Left shoulder and Left elbow pain after falling at home. On exam patient is awake, A+Ox3, VS WNL, afebrile, normal neurological exam without focal deficits, physical exam findings as above. Given reported symptoms and physical exam findings, initial differential includes shoulder dislocation, shoulder sprain/strain injury, fracture, tendonitis X-ray elbow and shoulder notable for no acute fractures. My interpretation is in agreement with the radiologist's interpretation. Pain improved with medication in the ED. Patient feels comfortable with discharge home with muscle relaxer, lidocaine patches. Advised applying ice intermittently several times daily. Follow up with PCP. Will refer to ortho for any ongoing symptoms. Return precautions discussed at bedside. Patient verbalized understanding of and agreement with plan. Differential Diagnosis Differential Diagnoses: The differential diagnosis associated with the presentation includes shoulder dislocation, shoulder sprain/strain injury, fracture, tendonitis, Independent Interpretation I performed an independent interpretation of an: Plain X-Ray Interpretation: NO acute fracture left shoulder or elbow Radiology Impression Discussion of test interpretation with radiology: I have reviewed the radiologist's reading. Radiologist Impression: XR/XR elbow LT min 3V IMPRESSION: Left Shoulder: No acute osseous abnormality. Left Elbow: No acute osseous abnormality. Redemonstration of a metallic foreign body within the anterior soft tissues at the level of the distal humeral diaphysis, unchanged. External Record Review External record reviewed: Inpatient record, Office record and Outpatient record Prescription Management I considered prescription management with: Pain Medication and Other Discharge Plan Discharge Clinical Impression: Contusion of left shoulder Patient Disposition: Home, Self-Care Instructions: Contusion in Adults (ED), R.I.C.E. Treatment (ED) Additional Instructions: You have been evaluated in the emergency department today for pain after a fall. Your evaluation did not find evidence of medical conditions requiring emergent intervention at this time. Your x-rays did not show evidence of fractures. Your symptoms improved with medications in the ED. Please rest, ice, and elevate your arm, and resume normal activities as tolerated. We recommend you take 600mg ibuprofen every 6 hours or 650mg Tylenol every 6 hours as needed for pain. If needed you can alternate these medications as they take 1 medication every 3 hours. For instance at noon take ibuprofen, then at 3:00 p.m. take Tylenol, then at 6:00 p.m. take ibuprofen. You are being prescribed a muscle relaxer which you can take every 8 hours as needed. Do not take this medication with alcohol as it can increased drowsiness. Please schedule an appointment for follow-up with your primary care provider this week. Return to the emergency department if you experience worsening pain, numbness, tingling, change of color in your arm, or any other concerning symptoms. Prescriptions: New cyclobenzaprine 10 mg tablet 10 mg PO TID PRN (Reason: muscle spasm) Qty: 10 0RF lidocaine 5 % adhesive patch,medicated 1 patch topical DAILY Qty: 15 0RF Rx Instructions: leave on most painful area for up to 12 hrs No Action metoprolol succinate 100 mg tablet extended release 24 hr 100 mg PO QAM alfuzosin 10 mg tablet extended release 24 hr 10 mg PO QAM [id number]-wyghp-[id number]-[id number] 375-150-125 mg Tablet 375 tab PO DAILY amlodipine 10 mg tablet 10 mg PO DAILY rosuvastatin 40 mg tablet 40 mg PO DAILY tadalafil [Cialis] 10 mg tablet 10 mg PO .2x week PRN (Reason: sexual activity) Qty: 30 2RF Rx Instructions: administer approximately 30min before sexual activity; do not use more than 1 dose per 48hrs [id number] [facility] [id number] Member [id number] oxycodone 5 mg tablet 5 mg PO Q6H PRN (Reason: pain) Qty: 20 0RF Rx Instructions: Partial Fill upon patient request. Referrals: [facility] [Provider Group] Print Language: Sami
[2024-08-24] MEDS: Cyclobenzaprine HCl 10 MG TABLET PO (15:15)
[2024-08-24] MEDS: Ketorolac Tromethamine 30 MG/ML VIAL IM (15:16)
[2024-08-24 16:46] VITALS: BP 131/81; PULSE 74; RESP 18; TEMP 36.4; O2SAT 96
[2024-08-24 17:29] VITALS: BP 131/81; PULSE 74; RESP 18; TEMP 36.4; O2SAT 96
== END 2024-08-24 17:30 | disposition home or self-care (01) ==
PROVIDERS: Emergency Provider Emergency Medicine; PCP Family Medicine
DX: S40.012A Contusion of left shoulder, initial encounter (principal); W01.198A Fall on same level from slipping, tripping and stumbling with subsequent striking against other object, initial encounter; Y93.9 Activity, unspecified; Y92.9 Unspecified place or not applicable; Y99.9 Unspecified external cause status; M25.522 Pain in left elbow; Z79.899 Other long term (current) drug therapy
CPT/HCPCS: 73030; 73080; 96372; 99283; 99284; J1885

== ENCOUNTER 2024-09-03 13:43 | Outpatient (AMB) | payer OTHER, SELFPAY ==
--- NOTE | 2024-09-03 14:11 | A.OFFVIS_ITS ---
Vital Signs 09/03/24 14:13 Height 5 ft 8 in Weight 205 lb BMI 31.2 Intake Visit Reasons: PO RT knee 08/21/24 Intake Note: Ward a 58 year old male who presents today no abdias, stiffness little. Allergies No Known Allergies Allergy (Verified 08/24/24 11:17) HPI HPI PO RT knee 08/21/24 DR: Details: 58-year-old male who returns to the office today for post-op right knee , 08/21/[address] Leach. He states he has no pain however he does report some stiffness in his knee. He is doing well overall and has no concerns today. 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 He would like to resume his work status. [facility] Medical History Elevated cholesterol Plasmacytoma Erectile dysfunction Kidney stone Biceps tendon rupture High blood pressure disorder Surgical History Hx of excision of mass Hx of hernia repair Hx laparoscopic cholecystectomy Hx of vasectomy Social History Household Members: Spouse Are you a primary career services coordinator to a significant other at home: No Do you presently have visiting nurse or other home services: No Patient Tobacco Use Status: Never used Tobacco service: No Current occupational status: employed Review of Systems Const All systems reviewed & are unremarkable except as noted in HPI and below Physical Exam Vital Signs: BMI result Body Mass Index 31.2 Extrem Other: Right knee: Incision clean, dry and intact. No redness or drainage. ROM is 0-120 degrees. Calf supple, nontender. Results Reviewed Results Reviewed: Date of Service: 08/21/24 Pre-op diagnosis: Right knee medial meniscus tear, right knee lateral meniscus tear Post-op diagnosis: same Procedure: Right knee diagnostic arthroscopy with right knee arthroscopic partial medial and lateral meniscectomies Implants: none Surgeon: Darwin Leach MD Assessment & Plan Assessment & Plan (1) Tear of medial meniscus of right knee: Code(s): S83.241A - Other tear of medial meniscus, current injury, right knee, initial encounter Category: Medical Plan Sutures removed today, steri strips applied. He will begin to increase activities as tolerated. He will return to work tomorrow without restrictions and he was given a work note to do so. I would like to see him back in [address] Leach, sooner if needed. Patient Instructions: Scribed for Sharath Duran PA-C, by Luis M Coulter senior medical writer, on 09/03/2024 at 1:45 PM EST.? I, Sharath Duran PA-C, have personally reviewed and agree with the information entered by the scribe. Coding Level of Care Code Global (34489) Diagnoses Tear of medial meniscus of right knee S83.241A
[2024-09-03 14:13] VITALS: BMI 31.2
== END 2024-09-03 15:11 | disposition home or self-care (01) ==
PROVIDERS: PCP Family Medicine; Visit Provider Physician Assistant
DX: S83.241A Other tear of medial meniscus, current injury, right knee, initial encounter (principal)
CPT/HCPCS: 99024

== ENCOUNTER → 2024-09-03 13:43 | Outpatient (BNVA) | payer OTHER, SELFPAY | PROVIDERS: PCP Family Medicine; Visit Provider Orthopaedic Surgery ==

== ENCOUNTER 2024-10-08 15:04 | Outpatient (AMB) | payer OTHER, SELFPAY ==
--- NOTE | 2024-10-08 15:06 | A.OFFVIS_ITS ---
Vital Signs 10/08/24 15:10 Height 5 ft 8 in Weight 200 lb BMI 30.4 Intake Visit Reasons: OV-RT knee 08/21/24 DR Intake Note: Ward is a 58 year old male who presents today for a post operative visit s/p right knee 08/21/2024. The patient reports mild intermittent discomfort in his right knee. He would like to return to the gym for exercise. Allergies No Known Allergies Allergy (Verified 10/08/24 15:11) Medication List - Last Reconciled 10/08/24 by Darwin Leach MD alfuzosin ER 10 mg PO QAM amlodipine 10 mg PO DAILY cyclobenzaprine 10 mg PO TID PRN [id number] 375-150-125 mg 375 tabs PO DAILY lidocaine 5% 1 patch topical DAILY metoprolol succinate ER 100 mg PO QAM oxycodone 5 mg PO Q6H PRN rosuvastatin 40 mg PO DAILY tadalafil (Cialis) 10 mg PO .2x week PRN PFSH Medical History Elevated cholesterol Plasmacytoma Erectile dysfunction Kidney stone Biceps tendon rupture High blood pressure disorder Surgical History Hx of excision of mass Hx of hernia repair Hx laparoscopic cholecystectomy Hx of vasectomy Social History Household Members: Spouse Are you a primary care management assistant to a significant other at home: No Do you presently have visiting nurse or other home services: No Patient Tobacco Use Status: Never used Tobacco service: No Current occupational status: employed Physical Exam Vital Signs: BMI result Body Mass Index 30.4 Extrem Other: Right knee examination shows that the surgical incisions are well healed, no erythema, minimal discomfort with range of motion, no instability Assessment & Plan Assessment & Plan (1) Right knee pain: Code(s): M25.561 - Pain in right knee Category: Medical Plan Mr. Alvarado continues to do very well after undergoing right knee arthroscopic surgery on 08/21/2024. He can returned to the gym as tolerated for exercise. Activity modifications were discussed at length with the patient. The patient does not wish to go to formal physical therapy at this time. He will contact me prior to his follow-up appointment in 2 months should any questions or concerns arise. Feel free to call me at any time should questions regarding his orthopedic management arise. Coding Level of Care Code Global (07198) Diagnoses Right knee pain M25.561
[2024-10-08 15:10] VITALS: BMI 30.4
--- OUTSIDE RECORDS SUMMARY | 2024-10-14 04:15 | XMS_ITS | Data Portability ---
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 He denies eating, drinking or swallowing difficulties denies any change in his voice. He does note that he had a mild upper respiratory tract infection a week prior to the study he is anxious about the possibility of recurrence. Examination shows no obvious lesions there may be some thickening along the left pharyngoepiglottic fold and a small left false vocal fold or ventricular polyp. At this point we discussed the options of observation with follow-up PET scan in 1 month for an exam under anesthesia with biopsy. He would like to proceed with an exam under anesthesia. Risks and benefits discussed and all questions answered. He is traveling to [place] for 2 weeks in April, therefore, suggest f/u PET scan first elena Not available 04/06/2024 15:24:14 06/08/2024 06/08/2024 58 year old male with history of right cervical plasmacytoma s/p biopsy of left lateral pharyngeal wall and left tonsillectomy due to increased uptake on PET scan. Biopsies were negative. No discrete false vocal fold mass was able to be visualized. Exposure was somewhat difficult. He was issued a return to work note. He is a bit more hoarse than anticipated. I have encouraged him to try to use his normal voice as much as possible. He will return for follow up in 3 months. At that time we will repeat FOL. [email or web address] Not available 06/08/2024 16:22:19 Plan of Treatment Reminders Order Date Submit Date Provider Last Modified By Organization Details Last Modified Time Details Appointments None recorded. Lab None recorded. Referral None recorded. Procedures None recorded. Surgeries direct microscopic laryngoscop y (SURG) 2023 024 9 Not available 4 09:08:56 Imaging PET-CT, skull base to mid-thigh scan - f/u to abnl scan at [place] 2023 [email or web address] [facility], [address], [place], [address], 4 17:27:47 Medication Orders None recorded. Patient TargetsNo targets recorded. Patient InstructionsNo instructions recorded. Reason for Referral None Reported. Results Created Date Observation Date Name Description Value Unit Range Abnormal Flag Note LastModifiedBy Organization Detail LastModifiedTime 05/22/20 24 05/21/2024 PT subtl e whole body CPT 38317 [facility] PET/CT Imagin g Access ion Number : [id number] Kinsey freeman Name: Ward Alvarado Record Number : [id number] Date of : 1965 Date of Exam: 2023 Referr ing Physic gordon: Shaun bloomein , [facility] [address] [place] [address] Exam: PT SUBTLE Whole Body CPT 97881 Room Descri ption: [facility] o Pt4 EXAM: PET-CT Histor y: 58-yea r-old male with histor y of plasma cytoma of the right neck, status post radiat ion therap y and subseq uent dissec tion. Follow -up prior abnorm al PET Compar jun: Outsid e PET/CT dated PET techni que: The study was perfor med after the intrav enous inject ion of 12.4 mCi F-18-F DG. Positr on emissi on tomogr aphy and CT were perfor med from the top of the skull to the feet with axial, sanders l, sagitt al, and 3-D reform ats. The blood glucos e at the time of inject ion was 80 mg/dL. Imagin g was perfor med 1 hour 7 minute s after inject ion. SUV was normal ized by body mass Findin gs: Medias tinal blood pool SUV max and mean: 2.7, 2 Liver SUV max and mean: 3.8, 2.7 Head/n jacy: * Normal physio logic activi ty in the brain. * There is a persis tent focal increa sed FDG uptake in the left oropha ryngea l palati ne tonsil , with maximu m SUV 7.1 (previ ously 5.6). CT images demons trate asymme tric fullne ss of the left pharyn geal tonsil . * Redemo nstrat ed are 2 adjace nt mildly hyperm etabol ic left level 2A lymph nodes, seen on axial image 44, each measur ing approx imatel y 6 mm in short axis, maximu m SUV 3.5, previo usly 3.7. * Additi onal level 2B lymph node seen on axial image 41, short axis V mm has maximu m SUV 3.1. * No hyperm etabol ic left cervic al lympha denopa thy. * Previo usly noted focal uptake in the nasoph arynx is no longer seen. Mild diffus e FDG uptake in the news operations manager ior wall of the nasoph arynx, axial image 34, maximu m SUV 4.4 is probab ly inflam matory . Chest: * No abnorm al FDG uptake in the chest. * No eviden ce of medias tinal lympha denopa thy. * No pleura l or perica rdial effusi on. * Tiny calcif ied granul jay in the right upper lobe, image 66. No defini te suspic ious lung nodule . Mild bilate ral depend ent atelec tasis. Abdome n/pelv is: * Physio logic activi ty in the liver, spleen , adrena l glands , pancre as, with normal uptake and excret ion in the kidney s and urinar y bladde r. * No hyperm etabol ic mesent jennie or retrop eriton eal lympha denopa thy. * Post cholec ystect von. * Incide ntal findin gs includ e coloni c divert iculos is, bilate ral nonobs tructi ve nephro lithia sis, lobula roberto shape of both kidney s with few renal cysts and few coloni c divert iculi. . * Small fat-co ntaini ng right inguin al hernia . Osseou s/cuta neous struct ures: * Mild focal increa sed uptake at the inferi or aspect of the T6 verteb ral body, axial image 76, maximu m SUV 3.8, correambreen salmeron g to a subcen timete r lucent lesion in this region is nonspe cific and may be metast atic or degene rative . This is stable as compar ed to prior PET/CT where it had a maximu m SUV of 3.8. * Mild hetero genous radiot racer activi ty in the thorac olumba r spine is nonspe cific. * Mild focal uptake in the right foot extens or muscul ature, axial image 328 and medial left lower leg muscul ature, axial image 258, are probab ly relate d to muscle strain . Impres tiffanie: Compar ed to prior PET/CT from 024, slight interv al increa sed metabo lic activi ty in the left oropha ryngea l palati ne tonsil , with CT demons tratin g asymme tric fullne ss in this region . This could be relate d to tonsil lar inflam mation or malign rajinder. ENT correl ation and biopsy may be consid ered to exclud e malign rajinder. Persis tent mildly hyperm etabol ic subcen timete r left level 2 lymph nodes may be metast atic or reacti ve. No FDG avid metast atic diseas e in the chest, abdome n and pelvis . Stable mild focal increa sed uptake in the inferi or aspect of T6 verteb ral body, juans ponjose angel g to a lucent lesion on CT may be metast atic or degene rative .. Electr onical ly Signed By: Ange Pugh MD [facility] [address], [place], [address], 05/26/2024 07:05:13 06/01/20 24 05/28/2024 clini ivonne photo * No observ ation record ed. [email or web address] Not Available 16:35:54 06/01/20 24 05/28/2024 clini ivonne photo * No observ ation record ed. [email or web address] Not Available 16:35:55 06/01/20 24 05/28/2024 clini ivonne photo * No observ ation record ed. [email or web address] Not Available 16:35:55 06/01/20 24 05/28/2024 clini ivonne photo * No observ ation record ed. [email or web address] Not Available 16:35:55 Result Notes None recorded. Problems Name Problem SNOMED Code Status Onset Date Resolution Date Notes Provider Name and Address Organization Details Recorded Time Abnormal findings on diagnostic imaging of skull and head 696030550 Active 2023 JUNI ELIAS MD [address] [place] [address] [place], [phone], 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 15:22:26 Plasmacytom a 744159718 Active 2023 JUNI ELIAS MD [address] [place] [address], [phone], [facility] 15:22:36 Chronic hoarseness 6255892091067 Active 2023 JUNI ELIAS MD [address] [place] [address] [place], [phone], [facility] 16:22:43 Problem Notes None recorded. Procedures Surgical History Date Name Laterality Status Provider Name and Address Organization Details Recorded Time 05/28/20 24 direct laryngoscopy with operating microscope completed JUNI IVORY MD [address] [facility] [place], [place], [address], [place] - [facility] 05/28/2024 11:54:58 05/28/20 24 tonsillectomy completed JUNI IVORY MD [address] [facility] [address], [place], [address], [place] - [facility] 05/28/2024 11:55:11 04/06/20 24 Fiberoptic Laryngoscopy (Comprehensive) completed JUNI IVORY MD [address] [facility] [facility] [address] [address], [place], [address], [place] - [facility] 04/06/2024 15:26:55 selective neck dissection of cervical lymph nodes completed JUNI IVORY MD [address] [facility] [facility] [place] [address], [place], [address], [place] - [facility] 04/06/2024 14:59:59 Imaging Results Imaging Date Name Status LastModified by Organiz ation Details LastModified Time 05/21/2024 PT subtle whole body CPT 46213 completed [facility] [address] [facility], [place], [address], 05/26/2024 07:05:13 05/28/2024 clinical photo* completed Information not available 06/01/2024 16:35:54 05/28/2024 clinical photo* completed Information not available 06/01/2024 16:35:55 05/28/2024 clinical photo* completed Information not available 06/01/2024 16:35:55 05/28/2024 clinical photo* completed Information not available 06/01/2024 16:35:55 Procedure Notes None recorded. Medical Equipment None Reported. Medications Name Sig Start Date Stop Date Status Note LastModified by Organization Details LastModified Time metoprolol succinate ER 100 mg tablet,exten ded release 24 hr TOME 1 TABLETA POR V A ORAL TODOS LOS D DO NOT CRUSH OR CHEW active Not Available Not Available No t Available amlodipine 5 mg tablet TOME RODNEY TABLETA TODOS LOS D EN LISSA BENÍTEZ active Not Available Not Available No t Available amlodipine 10 mg tablet TAKE 1 TABLET (10 MG) BY MOUTH ONCE PER DAY. active Not Available Not Available No t Available rosuvastatin 40 mg tablet TOME 1 TABLETA POR V A ORAL TODOS LOS D active Not Available Not Available No t Available alfuzosin ER 10 mg tablet,exten ded release 24 hr TOME RODNEY TABLETA TODOS LOS D EN LISSA BENÍTEZ. DO NOT CRUSH, CHEW OR SPLIT active Not Available Not Available No t Available tadalafil 10 mg tablet TAKE ONE TABLET BY MOUTH 2 TIMES A WEEK APPROXIMATE LY 30 MINUTES BEFORE SEXUAL ACTIVITY. DO NOT USE MORE THAN ONE DOSE PER 48 HOURS active Not Available Not Available No t Available amlodipine active Not Available Not Av ailable Not Available Glucosamine active Not Available Not A vailable Not Available metoprolol succinate active Not Available Not Available No t Available gabapentin active Not Available Not Av ailable Not Available alfuzosin active Not Available Not Khadra ilable Not Available Vitals Date Recorded Body height Body mass index (BMI) Body weight Provider Name and Address Organization Details Last Updated DateTime 06/08/2024 170.18 cm 30.4 kg/m2 25584.92 g [facility] 06/08/2024 14:01:42 Date Recorded Body height Body mass index (BMI) Body weight Provider Name and Address Organization Details Last Updated DateTime 04/06/2024 170.18 cm 32.1 kg/m2 79850.44 g [facility] 04/06/2024 14:38:02 Social History None recorded. Functional Status None recorded. Mental Status None recorded. Family History Nothing Reported. Medical History No medical history recorded. Past Encounters Encounter ID Performer Location Encounter Start Date Encounter Closed Date Diagnosis/Indication Diagnosis SNOMED-CT Code Diagnosis ICD10 Code [id number] JUNI BURDICK MD [facility] [address] [place] [address] 04/06/2024 14:19:53 04/06/2024 15:30:36 Abnormal findings on diagnostic imaging of skull and head 253036341 R93.0 Plasmacytoma 663548248 C 90.31 Polyp of vocal cord 9078 005 J38.1 [id number] JUNI BURDICK MD [facility] [address] [place] [address] 06/08/2024 13:55:07 06/08/2024 14:18:48 History of malignant hematologic neoplasm 366666523 Z85.79 Chronic hoarseness 94108 33571 105 R49.0 Health Concerns Section Related Observation LastModified by Organization Detai ls LastModified Time None Recorded Concern Status LastModified by Organization Details LastModified Time None Recorded Advance Directives Directive None Recorded Payers Encounter Date Sequence Insurance Name Policy Number Policy Moseley Covered Member ID Moseley Member ID Guarantor Name 04/06/2024 1 [facility]) Ward Christiano [id number] Ward Christiano 06/08/2024 1 [facility] [place] Ward Christiano [id number] Ward Christiano Notes Date Note Type Note Provider Name and Address Organization Details Recorded Time 04/06/2024 text/html Hx of plasmacyto ma right neck..s/p XRT and subsequent dissection. Now with abnl surveillance PET scan. Had URI and sore throat one week prior to recent scan JUNI IVORY MD [address] [facility],[place] [address], [place], [address], [place] - [facility] 04/06/2024 15:28:27 06/08/2024 text/html 58 year old male with history of cervical plasmacytoma s/p biopsy of left tonsil and lateral pharyngeal wall. He reports some bleeding the first five days. He has been able to eat solids since Saturday. He requests a return to work note. JUNI IVORY MD [address] [facility],[place] [address], [place], [address], [place] [facility] 06/08/2024 16:22:57
== END 2024-10-08 15:22 | disposition home or self-care (01) ==
PROVIDERS: PCP Family Medicine; Visit Provider Orthopaedic Surgery
DX: M25.561 Pain in right knee (principal)
CPT/HCPCS: 99024

== ENCOUNTER → 2024-10-08 15:04 | Outpatient (BNVA) | payer OTHER, SELFPAY | PROVIDERS: PCP Family Medicine; Visit Provider Orthopaedic Surgery ==

== ENCOUNTER 2024-12-01 15:29 | Outpatient (REF) | payer OTHER, SELFPAY ==
--- NOTE | ~2024-12-01 | US_ITS ---
CLINICAL HISTORY: Right cervical adenopathy. Examination: Limited soft tissue ultrasound indication right-sided cervical adenopathy Comparison: None. Findings: A few normal lymph nodes are imaged bilaterally, with normal thin cortices and vascular/fatty loreta. No suspicious or abnormally enlarged lymph nodes are noted. Impression: Normal-appearing small lymph nodes bilaterally. This document has been electronically signed by: Bereket Adams MD on 12/02/2024 11:56:22
--- OUTSIDE RECORDS SUMMARY | 2024-12-01 16:25 | XMS_ITS | Clinical Summary ---
Author Organization [employer] Address [address] [place] [address] Care Team Providers Care Broadcast Operations Engineer Name Role Phone Grace Rodriguez MD Primary Care Provider [phone] Allergies No known active allergies Medications tadalafil (Cialis) 10 MG tablet Take 1 tablet (10 mg) by mouth if needed each day for erectile dysfunction. 10 tablet 1 4 Active alfuzosin ER (Uroxatral) 10 MG 24 hr tabletIndications :Benign prostatic hyperplasia without lower urinary tract symptoms Take 1 tablet (10 mg) by mouth Once per day. Do not crush, chew, or split. 90 tablet 1 4 03/13/20 25 Active rosuvastatin (Crestor) 40 MG tablet TOME 1 TABLETA POR VIA ORAL TODOS [place] 90 tablet 1 4 Active metoprolol succinate XL (Toprol-XL) 100 MG 24 hr tabletIndications :Primary hypertension TAKE 1 TABLET BY MOUTH EVERY DAY. DO NOT CRUSH OR CHEW. 90 tablet 1 4 Active amLODIPine (Norvasc) 10 MG tablet TAKE 1 TABLET (10 MG) BY MOUTH ONCE PER DAY. 90 tablet 1 4 Active Active Problems Problem Noted Date Diagnosed Date Other male erectile dysfunction 03/06/2024 Assessment & Plan (03/06/2024 9:47 AM EDT): Discussed medication refills as needed. 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 Lowering systolic BP. Relevant Medication: -Amlodipine dosage was increased to 10 mg -Rosuvastatin (Crestor) 40 MG tablet for cholesterol. -Metoprolol succinate XL (Toprol-XL) 100 MG 24 hr tablet Ordering lab work for further evaluation. -Cholesterol >3 months F/u for BP recheck in 1 month. Assessment & Plan (03/06/2024 9:49 AM EDT): Discussed Medications and refills as needed. Ordering lab work for further evaluation. F/u for BP recheck in 1 week 03/13/2024. Encounters Date Type Department Care Team Description 09/06/2024 Refill [facility] [address] [place] [address] Graec Rodriguez MD Primary hypertension from Last 3 Months Immunizations Name Administration Dates Next Due Influenza injectable quadrivalent preservative f ree 08/30/2023 Pfizer Covid-19 Vaccine 12+ 08/30/2023 Pneumococcal Conjugate PCV 20 03/13/2024 Tdap 03/13/2024 Family History Medical History Relation Name Comments HTN Brother HTN Father Parkinsonism Maternal Grandmother HTN Mother Alzheimer's disease Paternal Grandmother Diabetes Neg Hx Heart disease Neg Hx Relation Name Status Comments Brother Father Maternal Grandmother Mother Paternal Grandmother Social History Tobacco Use Types Packs/Day Years Used Date Smoking Tobacco: Never Passive Smoke Exposure: Past Smokeless Tobacco: Never Tobacco Cessation:Counseling Given: Not Answered Alcohol Use Standard Drinks/Week Comments Yes 2 (1 standard drink = 0.6 oz pur e alcohol) Socially Depression Answer Date Recorded Patient Health Questionnaire-9 Score 2 03/06/2024 Patient Health Questionnaire-9 Score 2 03/06/2024 Last PHQ-9: Questionnaire Data Not on file 0 03/06/2024 Housing Stability Answer Date Recorded What is your housing situation today? I have marky sing 02/05/[address] you li ve. Do you have problems with any of the following? None of the above 02/05/2024 Food Insecurity Answer Date Recorded Within the past 12 months, y ou worried that your food would run out before you got money to buy more: Never True 02/05/2024 Within the past 12 months,th e food you bought just didn't last and you didn't have enough money to get more: Never True 01/2024 Transportation Answer Date Recorded In the past 12 months, has l ack of transportation kept you from medical appts, meetings, work or from getting things needed for daily living? No 02/05/2024 Utilities Answer Date Recorded In the past 12 months, has t he electric, gas, oil or water company threatened to shut off services in your home? No 02/05/2024 Depression Answer Date Recorded Patient Health Questionnaire-2 Score 0 03/06/2024 Sex and Gender Information Value Date Recorded Sex Assigned at Male 06/18/2023 11:40 AM EDT Legal Sex Male 11:56 AM EDT Gender Identity Male 06/18/2023 11:40 AM EDT Sexual Orientation Straight 03/09/2024 4: 18 PM EDT Last Filed Vital Signs Vital Sign Reading Time Taken Comments Blood Pressure 130/80 08/04/2024 2:22 PM EDT Pulse 62 07/17/2024 2:12 PM EDT Temperature 36.7 ??C (98.1 ??F) 03/20/2024 10:04 AM E DT Respiratory Rate 21 03/20/2024 10:04 AM EDT Oxygen Saturation 97% 03/20/2024 10:04 AM EDT Inhaled Oxygen Concentration - - Weight 93 kg (205 lb) 03/20/2024 10:04 AM EDT Height 172.7 cm (5' 8 ) 03/20/2024 10:04 AM EDT Body Mass Index 31.17 03/20/2024 10:04 AM EDT Plan of Treatment Health Maintenance Due Date Last Done Comments CT Colonography 1966 Colonoscopy 1966 Colorectal Cancer Screening 1966 Dental Oral Exam 1966 FIT DNA/Cologuard 1966 FIT 1966 FOBT 1966 HIV Screening 1966 Sigmoidoscopy 1966 Alcohol/Substance Use Screening 1978 Hepatitis C Screening 1984 Hepatitis B Vaccines (1 of 3 - 19+ 3-dose series) 1985 Zoster Vaccines (1 of 2) 1985 COVID-19 Vaccine (2 - Pfizer risk series) 09/20/2023 08/30/2023 Influenza Vaccine (#1) 2024 08/30/2023 Dental Prophylaxis 01/15/2025 07/17/2024 Depression Screening 03/06/2025 03/06/2024, 03/06/2024 SDOH Screening 03/06/2025 03/06/2024 Dental X-Ray: Bitewings 07/18/2025 07/17/2024 Tobacco Screening 08/04/2025 08/04/2024 Dental X-Ray: Full Mouth 07/18/2027 07/17/2024 Lipid Panel 03/07/2029 03/07/2024 DTaP/Tdap/Td Vaccines (2 - T d or Tdap) 03/13/2034 03/13/2024 RSV Patients and Patients Aged 60 years or older (1 - 1-dose 75+ series) 2041 Pneumococcal Vaccine: Pediatrics (0 to 5 Years) and At-Risk Patients (6 to 64 Years) Completed 03/13/2024 HIB Vaccines Aged Out No longer eligi ble based on patient's age to complete this topic HPV Vaccines Aged Out No longer eligi ble based on patient's age to complete this topic Hepatitis A Vaccines Aged Out No long er eligible based on patient's age to complete this topic IPV Vaccines Aged Out No longer eligi ble based on patient's age to complete this topic Meningococcal Vaccine Aged Out No timothy michelle eligible based on patient's age to complete this topic RSV under 20 months Aged Out No longe r eligible based on patient's age to complete this topic Rotavirus Vaccines Aged Out No longer eligible based on patient's age to complete this topic Procedures Procedure Name Priority Date/Time Associated Diagnosis Comments PROPHYLAXIS - ADULT Routine 07/17/2024 2 :00 PM EDT DIAGNOSTIC - DIAGNOSTIC IMAGING - INTRAORAL - COMPREHENSIVE SERIES OF RADIOGRAPHIC IMAGES Routine 07/17/2024 2:00 PM EDT LIPID PANEL, STANDARD Routine 03/07/2024 12:00 AM EDT Primary hypertension from Last 3 Months or Most Recently Relevant to Health Maintenance Results * (ABNORMAL) Lipid Panel, Standard (03/07/2024 12:00 AM EDT) Triglycerides 111 <150 mg/dL [facility] Comment:Desirable Triglyceri de: less than 150 mg/dLBorderline High Triglyceride 150-199 mg/dLHigh Triglyceride: 200-499 mg/dLVery High Triglyceride: greater than or equal to 5OO mg/dL Cholesterol 183 <200 mg/dL [facility] Comment:Desirable Cholestero l: less than 200 mg/dLBorderline High Cholesterol: 200-239 mg/dLHigh Cholesterol: greater than 239 mg/dL LDL Cholesterol Calculated 120(H) <100 mg/dL [facility] Comment:Desirable LDL: less than 100 mg/dLNear Optimal/Above Optimal LDL: 110- 129 mg/dLBorderline High LDL: 130-159 mg/dLHigh LDL: 160-189 mg/dLVery High LDL: greater than or equal to 190 mg/dL HDL Cholesterol 41 >40 mg/dL [facility] Comment:Desirable HDL: great er than 40 mg/dL Note: This HDL assay may give artificially low results in patients with liver disease. Blood Venous blood specimen / Unknown 03/07/2024 03/07/2024 us Grace Rodriguez MD LAB BLOOD ORDERABLES Final Re sult [facility] [address] [place] [address] [phone] from Last 3 Months or Most Recently Relevant to Health Maintenance Insurance [facility] Care Teams Broadcast Operations Engineer Relationship Specialty Start Date End Date Grace Rodriguez MD [address] [place] [id number] PCP - General Family Medicine 03/06/24 Rogelio Ladd MD. FACP [address] [place] [id number] Medical Oncologist Oncology 12/24/23
--- OUTSIDE RECORDS SUMMARY | 2024-12-01 16:25 | XMS_ITS | Encounter Summary ---
Author Organization [employer] Address [address] [place] [address] Care Team Providers Care Branch Billing Payroll Clerk Name Role Phone Grace Rodriguez MD Primary Care Provider [phone] Reason for Visit * Reason Comments Med Refill Encounter Details Date Type Department Care Team ([facility] Contact Info) Description 08/11/2024 Refill [facility] [address] [place] [address] Yelena Mackay FNP Benign prostatic hyperplasia without lower urinary tract symptoms Social History Tobacco Use Types Packs/Day Years Used Date Smoking Tobacco: Never Passive Smoke Exposure: Past Smokeless Tobacco: Never Alcohol Use Standard Drinks/Week Comments Yes 2 (1 standard drink = 0.6 oz pur e alcohol) Socially Depression Answer Date Recorded Patient Health Questionnaire-9 Score 2 03/06/2024 Patient Health Questionnaire-9 Score 2 03/06/2024 Last PHQ-9: Questionnaire Data Not on file 0 03/06/2024 Housing Stability Answer Date Recorded What is your housing situation today? I have marky ramirez 02/05/[address] you li [...] Orientation Straight 03/09/2024 4: 18 PM EDT documented as of this encounter Plan of Treatment Not on file documented as of this encounter Visit Diagnoses Diagnosis Benign prostatic hyperplasia without lower urinary tract symptoms documented in this encounter Additional Health Concerns Assessment Noted Time PHQ-9 Depression Total Score: 2 03/06/20 8:35 AM EDT documented as of this encounter Care Teams Branch Billing Payroll Clerk Relationship Specialty Start Date End Date Grace Rodriguez MD [address] [place] [id number] PCP - General Family Medicine 03/06/24 Rogelio Ladd MD. F[address] [address] Medical Oncologist Oncology 12/24/23 documented as of this encounter
--- OUTSIDE RECORDS SUMMARY | 2024-12-01 16:25 | XMS_ITS | Encounter Summary ---
Author Organization [employer] Address [address] [facility] [address] [place] [address] Care Team Providers Care Infusion Therapy Nurse Name Role Phone Grace Rodriguez MD Primary Care Provider [phone] Reason for Visit * Reason Comments Med Change Request Encounter Details Date Type Department Care Team ([facility] Contact Info) Description 12/24/2023 Refill [facility] [address] [place] [address] Yelena Mackay FNP Primary hypertension Social History Tobacco Use Types Packs/Day Years Used Date Smoking Tobacco: Never Passive Smoke Exposure: Never Smokeless Tobacco: Never Alcohol Use Standard Drinks/Week Comments Yes 2 (1 standard drink = 0.6 oz pur e alcohol) Socially Sex and Gender Information Value Date Recorded Sex Assigned at Male 06/18/2023 11:40 AM EDT Legal Sex Male 11:56 AM EDT Gender Identity Male 06/18/2023 11:40 AM EDT Sexual Orientation Straight 03/09/2024 4: 18 PM EDT documented as of this encounter Plan of Treatment Not on file documented as of this encounter Visit Diagnoses Diagnosis Primary hypertension Unspecified essential hypertension documented in this encounter Care Teams Infusion Therapy Nurse Relationship Specialty Start Date End Date Grace Rodriguez MD [address] [place] [address] PCP - General Family Medicine 03/06/24 Rogelio Ladd MD. FACP [address] [place] [id number] Medical Oncologist Oncology 12/24/23 documented as of this encounter
--- OUTSIDE RECORDS SUMMARY | 2024-12-01 16:25 | XMS_ITS | Data Portability ---
Author Organization [place] - [facility] Address [address] [place] [address] Care Team Providers Care Gericare Aide Teacher Name Role Phone JONAH WANG Primary Care Provider [phone] MUNA CASTELLANO Referring Provider Assessment Encounter Date Assessment Date Assessment LastModified [...] all questions answered. He is traveling to [place] for 2 weeks in April, therefore, suggest [...] direct microscopic laryngoscop y (SURG) 2023 024 [email or web address] [id number] Not available 4 09:08:56 Imaging PET-CT, skull base to mid-thigh scan - f/u to abnl scan at [place] 2023 [email or web address] [facility], [address], [place], [address], 4 17:27:47 Medication Orders None recorded. Patient TargetsNo targets recorded. Patient InstructionsNo instructions recorded. Reason for Referral None Reported. Results Created Date Observation Date Name Description Value Unit Range Abnormal Flag Note LastModifiedBy Organization Detail LastModifiedTime 05/22/20 24 05/21/2024 PT subtl e whole body CPT 79940 [place] PET/CT Imagin g Access ion Number : [id number] Kinsey freeman Name: Ward Alvarado Record Number : [id number] Date of : 1965 Date of Exam: 2023 Referr ing Physic gordon: Shaun bloomein , [facility] [address] [place] [address] Exam: PT SUBTLE Whole Body CPT 38135 Room Descri ption: [facility] o Pt4 EXAM: PET-CT Histor y: [...] Mild diffus e FDG uptake in the model home sales greeter ior wall of the nasoph arynx, axial [...] onical ly Signed By: Ange Pugh MD [facility] [address], [place], [address], 05/26/2024 07:05:13 06/01/20 24 05/28/2024 clini ivonne [...] on diagnostic imaging of skull and head [id number] Active 2023 JUNI ELIAS MD [address] [place] [address] [place], [phone], 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 - [facility] 15:22:26 Plasmacytom a 237151930 Active 2023 JUNI ELIAS MD [address] [place] [address], [phone], [facility] - [facility] 15:22:36 Chronic hoarseness 4035862084446 Active 2023 JUNI ELIAS MD [address] [place] [address] [place], [phone], [facility] - [facility] 16:22:43 Problem Notes None recorded. Procedures Surgical History Date Name Laterality Status Provider Name and Address Organization Details Recorded Time 05/28/20 24 direct laryngoscopy with operating microscope completed JUNI IVORY MD [address] [facility] [place],[facility], [place], [address], [place] - [facility] 05/28/2024 11:54:58 05/28/20 24 tonsillectomy completed JUNI IVORY MD [address] [facility] [place],[address], [place], [address], [place] - [facility] 05/28/2024 11:55:11 04/06/20 24 Fiberoptic Laryngoscopy (Comprehensive) completed JUNI IVORY MD [address] [facility] [place] [address], [place], [address], [place] - [facility] 04/06/2024 15:26:55 selective neck dissection of cervical lymph nodes completed JUNI IVORY MD [address] [facility] [place] [address], [place], [address], [place] - [facility] 04/06/2024 14:59:59 Imaging Results Imaging Date Name Status LastModified by Organiz ation Details LastModified Time 05/21/2024 PT subtle whole body CPT 11326 completed [facility] [address] [facility], [place], [address], 05/26/2024 07:05:13 05/28/2024 clinical photo* completed Information [...] Updated DateTime 06/08/2024 170.18 cm 30.4 kg/m2 00677.92 g [facility] 06/08/2024 14:01:42 Date Recorded Body height Body mass index (BMI) Body weight Provider Name and Address Organization Details Last Updated DateTime 04/06/2024 170.18 cm 32.1 kg/m2 96201.44 g [facility] 04/06/2024 14:38:02 Social History None recorded. Functional Status None recorded. Mental Status None recorded. Family History Nothing Reported. Medical History No medical history recorded. Past Encounters Encounter ID Performer Location Encounter Start Date Encounter Closed Date Diagnosis/Indication Diagnosis SNOMED-CT Code Diagnosis ICD10 Code Diagnosis Note [id number] JUNI BURDICK MD [facility] [address] [address] 04/06/2024 14:19:53 04/06/2024 15:30:36 Abnormal findings on diagnostic imaging of skull and head 006876018 R93.0 Plasmacytoma 070826631 C 90.31 Polyp of vocal cord 9078 005 J38.1 We discussed the risks, benefits and alternativ es to direct laryngosco py as well as the procedure itself. The surgical risks, including, though not limited to, bleeding, infection, perforatio n of the pharynx/es ophagus, pneumothor ax, mediastini tis and airway obstructio n, sepsis and were discussed. We also spoke about the risks of dental, lip and gum injuries as well as tongue swelling, numbness, taste alteration (temporary or permanent) and taste disturbanc e that can occur due to retractor use during surgery, anesthesia -related dental injury, uvula injury and laryngospa sm. [id number] JUNI BURDICK MD [facility] [address] [place] [address] 06/08/2024 13:55:07 06/08/2024 14:18:48 History of malignant hematologic neoplasm 790653020 Z85.79 Chronic hoarseness [address]83[address]114 105 R49.0 Health Concerns Section Related Observation LastModified by Organization Detai ls LastModified Time None Recorded Concern Status LastModified by Organization Details LastModified Time None Recorded Advance Directives Directive None Recorded Payers Encounter Date Sequence Insurance Name Policy Number Policy Moseley Covered Member ID Moseley Member ID Guarantor Name 04/06/2024 1 [facility] Ward Christiano [id number] Ward Christiano 06/08/2024 1 [facility] Ward Christiano [id number] Ward Christiano Notes Date Note Type Note Provider Name and Address Organization Details Recorded Time 04/06/2024 text/html Hx of plasmacyto ma right neck..s/p XRT and subsequent dissection. Now with abnl surveillance PET scan. Had URI and sore throat one week prior to recent scan JUNI IVORY MD [address] [address], [place], [address], 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 He reports some bleeding the first five days. He has been able to eat solids since Saturday. He requests a return to work note. JUNI IVORY MD [address] [place] [address], [place], [address], [place] - [facility] 06/08/2024 16:22:57
== END 2024-12-01 15:30 | disposition home or self-care (01) ==
LOC: HO.HMGCX 15:29
PROVIDERS: PCP Family Medicine; Visit Provider Internal Medicine Medical Oncology
DX: R59.0 Localized enlarged lymph nodes (principal)
CPT/HCPCS: 76536

== ENCOUNTER → 2024-12-01 15:32 | Outpatient (BNV) | payer OTHER, SELFPAY | PROVIDERS: PCP Family Medicine; Visit Provider Radiology Vascular & Interventional Radiology | DX: R59.0 Localized enlarged lymph nodes (principal) | CPT/HCPCS: 76536 ==

== ENCOUNTER 2024-12-23 06:22 | Emergency (ER) | payer OTHER, SELFPAY ==
--- NOTE | ~2024-12-23 | CT_ITS ---
CLINICAL HISTORY: R sided facial numbness, headaches CT angiography head and neck with contrast. 3D Postprocessing. Comparison: CT - CT ANGIO HEAD NECK - 12/23/24 16:[address]/[place]/SR - CT HEAD/BRAIN WO IV CON - 12/23/24 14:58 EST Findings: Aortic arch and cervical great vessels are patent. Intracranial arteries are patent. No aneurysm, dissection, or occlusion. No abnormal intracranial enhancement. The visualized thyroid gland is unremarkable. No cervical mass or fluid collection. Lung apices clear. No acute fracture. IMPRESSION: Patent head and neck CTA. This document has been electronically signed by: Pretty Lackey MD on 12/23/2024 17:35:55
--- NOTE | ~2024-12-23 | CT_ITS ---
EXAMINATION: CT HEAD WITHOUT CONTRAST CLINICAL INFORMATION: headaches COMPARISON: None available. TECHNIQUE: Contiguous axial imaging was performed from the skull base to vertex without intravenous administration of contrast. This CT examination was performed using dose optimization techniques as appropriate, variously including the following: *Automated exposure control *Adjustment of mA and/or kV according to patient size (this includes techniques or standardized protocols for targeted exams where dose is matched to indication/reason for exam; i.e. extremities or head) *Use of iterative reconstruction technique DLP: 754 mGy-cm FINDINGS: No acute intracranial hemorrhage, mass effect, midline shift, hydrocephalus or herniation. Fonseca-white matter differentiation is normal. Posterior cranial fossa contents demonstrated no acute intracranial hemorrhage or mass effect. Sellar/suprasellar region demonstrated no gross masses. Craniocervical junction is intact and normal. Calcified plaques in the cavernous supraclinoid segments both ICA. No mass or fluid collections in the intraconal or extraconal compartments of the orbits. Bony calvarium is intact. Mucosal thickening without air-fluid levels in the maxillary sinuses. Pneumatized left anterior clinoid process and dorsum sella.. Tympanic cavities and mastoid air cells are aerated. CT/CT head/brain wo IV con IMPRESSION: No acute or structural brain abnormality by CT. Electronically signed by: Carl Arroyo MD 12/23/2024 03:26 PM EST
[2024-12-23 06:38] VITALS: BP 141/83; PULSE 69; RESP 16; TEMP 36.7; O2SAT 99; BMI 31.1
[2024-12-23 07:26] LABS: MANUAL DIFF FLAG NO
[2024-12-23 07:30] LABS: Appearance Urine Clear; Color Urine Yellow; Glucose Urine UA Negative (Negative); Leukocyte Esterase Urine Negative (Negative); Nitrite Urine Negative (Negative); Specific Gravity - Urine 1.025 (1.005-1.025); UMIC TRIGGER UACC YES; Urine Blood Negative (Negative); Urine Ketones Negative (Negative); Urine Protein 30 (1+) mg/dL (Neg-Trace)
[2024-12-23 07:32] LABS: Bacteria Urine None Seen (None Seen); Basophils Percent Auto 0.6 % (0-2); Eosinophils Absolute Auto 0.2 X10*3/uL (0.0-0.4); Eosinophils Percent Auto 3.4 % (0-4); Hematocrit 44.1 % (42.0-52.0); Hemoglobin 14.7 g/dl (14.0-18.0); Hyaline Casts Urine 0-2 /LPF (0-2); Imm Gran Abs Auto 0.01 X10*3/uL (0.00-0.03); Imm Gran Pct Auto 0.2 % (0.0-0.4); Lymphocytes Percent Auto 19.6 % (20-40); Mean Corpuscular HGB Conc 33.3 g/dl (31.0-36.0); Mean Corpuscular Hemoglobin 27.9 pg (27.0-33.0); Mean Corpuscular Volume 83.7 fL (80.0-98.0); Mean Platelet Volume 10.3 fL (9.4-12.4); Monocytes Absolute Auto 0.5 X10*3/uL (0.1-1.2); Monocytes Percent Auto 9.5 % (2-11); Neutrophils Absolute Auto 3.3 x10*3/uL (2.0-8.3); Neutrophils Percent Auto 66.7 % (45-73); Platelet Count 146 X10*3/uL (160-400); RBC Urine 0-2 /HPF (0-2); Red Blood Count 5.27 X10*6/uL (4.60-5.80); Red Cell Distribution Width 13.9 % (11.0-16.0); Squamous Epithelial Cell Urine 0-2 /HPF (0-2); WBC Urine 0-5 /HPF (0-5)
[2024-12-23 07:40] LABS: Anion Gap 10 (12-20); Blood Urea Nitrogen 21 mg/dL (9-16); Calcium 9.2 mg/dL (8.4-10.2); Carbon Dioxide 27 mmol/L (22-29); Chloride 109 mmol/L (96-108); Creatinine Clr Calc Pharmacy 85.5; Estimated Glomerular Filt Rate > 60; Glucose Random 99 mg/dL (60-115); Potassium 3.4 mmol/L (3.3-5.1); Sodium 143 mmol/L (135-145)
[2024-12-23 13:35] VITALS: BP 148/84; PULSE 74; RESP 14; TEMP 36.7; O2SAT 95
--- NOTE | 2024-12-23 13:39 | ECG_ITS ---
Test Reason : HTN Blood Pressure : */* mmHG Vent. Rate : 74 BPM Atrial Rate : 74 BPM P-R Int : 172 ms QRS Dur : 82 ms QT Int : 380 ms P-R-T Axes : 62 -28 19 degrees QTcB Int : 421 ms Normal sinus rhythm Minimal voltage criteria for LVH, may be normal variant ( R in aVL ) Nonspecific T wave abnormality Abnormal ECG No previous ECGs available Referred By: Kim English Electronically Signed By: BANG GOODSON
--- NOTE | 2024-12-23 13:46 | ED_ITS ---
HPI - General Adult General Chief complaint: General Medical Stated complaint: high BP Time Seen by Provider: 12/23/24 13:33 Source: patient and old records reviewed Mode of arrival: ambulatory Limitations: no limitations History of Present Illness ED Provider: SOLE RUST narrative: 59 yo male with PMH of HTN on amlodipine daily and metoprolol 100mg ER, HLD who reports fronto-temporal headaches since - no trauma, no URI. He notes his BPs have been up he shows me a trend on his phone - 130-160s systolic but nothing higher than that and his diastolics are in the 80s. He is compliant with his medications denies new ingestion or supplements. He reports he felt the R side of his face was tingling today so he came to get checked out. On arrival neuro intact. His BPs are also 140/80s. complaint: HTN/headaches Onset (ago): day(s) (since ) Location: head and face Radiation: non-radiation Severity: moderate Quality: aching Pain Consistency: intermittent Relieving factors: other (tylenol) Exacerbating factors: none Associated symptoms: denies other symptoms Treatments prior to arrival: none Related Data Home Medications ?Medication ?Instructions ?Recorded ?Confirmed alfuzosin 10 mg tablet,extended 10 mg PO QAM 09/20/23 10/08/24 release 24 hr niidzqdwrcv-bxddcmvums-rfm-calcium-155herb 375 tab PO DAILY 09/20/23 10/08/24 375 mg-150 mg-125 mg tablet metoprolol succinate 100 mg 100 mg PO QAM 09/20/23 10/08/24 tablet,extended release 24 hr amlodipine 10 mg tablet 10 mg PO DAILY 03/23/24 10/08/24 rosuvastatin 40 mg tablet 40 mg PO DAILY 03/23/24 10/08/24 Previous Rx's ?Medication ?Instructions ?Recorded tadalafil 10 mg tablet (Cialis) 10 mg PO .2x week PRN sexual 03/23/24 activity #30 tabs cyclobenzaprine 10 mg tablet 10 mg PO TID PRN muscle spasm #10 08/24/24 tabs hydrochlorothiazide 12.5 mg capsule 12.5 mg PO DAILY #30 caps 12/23/24 Allergies Allergy/AdvReac Type Severity Reaction Status Date / Time No Known Allergies Allergy Verified 12/23/24 06:41 Review of Systems 2 Review of Systems: Constitutional : No Fever, No Chills, No Fatigue ENT/Mouth : No sore throat, No Rhinorrhea Eyes: No Eye Pain, No Swelling, No Redness Cardiovascular : No Chest Pain, No SOB, No Dyspnea on Exertion Respiratory : No Cough, No Sputum Gastrointestinal : No Nausea, No Vomiting, No Diarrhea, No abdominal Pain Genitourinary : No Dysuria, No Urinary Frequency, No Hematuria, Musculoskeletal : No joint pain, No Myalgias, No Joint Swelling Skin : No Skin Lesions, No rash Neuro : No Weakness, pos Numbness, No Dizziness, positive Headache Psych : No Anxiety/Panic, No Depression All other systems reviewed and are negative [facility] Past Medical History Attestation statement: The following information was validated with the patient. Source: old records reviewed Medical History Elevated cholesterol Plasmacytoma Erectile dysfunction Kidney stone Biceps tendon rupture High blood pressure disorder Surgical History H/O right knee surgery Hx of excision of mass Hx of hernia repair Hx laparoscopic cholecystectomy Hx of vasectomy Social History Social History Household Members: Spouse Are you a primary career services representative to a significant other at home: No Do you presently have visiting nurse or other home services: No Patient Tobacco Use Status: Never used Tobacco Smoked in Last 30 Days: No Use of substances other than those prescribed or required for medical reasons: No Advance Directives: No Advance Directives Information Provided: Yes Do you have a plan to hurt others: No Plan service: No Current occupational status: employed Physical Exam ED Vital Signs: Vital Signs - 24 hr 12/23/24 06:38 12/23/24 13:35 12/23/24 17:01 Temperature 98.1 F 98.1 F 97.9 F Pulse Rate 69 74 63 Respiratory Rate 16 14 18 Blood Pressure 141/83 H 148/84 H 132/85 Pulse Oximetry 99 95 99 Oxygen Delivery Method Room Air Room Air Room Air BMI result Body Mass Index 31.1 Appearance: Alert. Oriented X3. No acute distress. Eyes: Pupils equal, round and reactive to light. ENT: Pharynx normal. Neck: Normal inspection. Neck supple. CVS: Normal heart rate and rhythm. Pulses normal. Respiratory: No respiratory distress. Breath sounds normal. Abdomen: Soft and nontender. Skin: Skin warm and dry. Normal skin color. Normal skin turgor. Extremities: No lower extremity edema. No calf ttp Neuro: Oriented X 3. No motor deficit. No sensory deficit. CN2-12 intact. normal gait no ataxia NIH Stroke Scale Internal: Initial- Upon Arrival Level of Consciousness: Alert Level of Consciousness Questions: Answers both questions correctly Level of Consciousness Commands: Performs both tasks correctly Best Gaze: Normal Visual: No visual loss Facial Palsy: Normal Motor Arm (Right): No drift Motor Arm (Left): No drift Motor Leg (Right): No drift Motor Leg (Left): No drift Limb Ataxia: Absent Sensory: Normal Best Language: No aphasia Dysarthia: Normal Extinction and Inattention: No abnormality Score: 0 Course Course Course Narrative: give his symptoms and plaques on carotid will obtain CTA head and neck Medications Administered Discontinued Medications Generic Name Dose Route Start Last Admin Trade Name Freq PRN Reason Stop Dose Admin Iohexol 70 ml 12/23/24 16:56 12/23/24 16:56 Iohexol 350 Mg/Ml 100 Ml Infus..Btl IV 12/23/24 16:57 70 ml ONCE ONE Administration Medical Decision Making Medical Decision Making [facility] Narrative: 59 yo male with PMH of HTN on amlodipine daily and metoprolol 100mg ER, HLD not on blood thinners who notes headache on and off since systlic BPs 140- 160 and diastolic 80s - it seems atypical for TIA/stroke at this range I did not see any higher spikes and he did not report more elevated BPs. At this time basic labs, Cr, EKG, CT head for mass. He has no deficits on exam and clinically I have a low susp for TIA/CVA. Differential Diagnosis Differential Diagnoses: The differential diagnosis associated with the presentation includes HTN atypical pressures for TIA/stroke viral syndrome Admission/Observation Consideration of admission/observation: Escalation of care including admission/observation considered normal head and CTA not in afib BP stable here will add on HCTZ 12.5mg daily and baby aspirin at this time his face tingling with BPs in 1402/160s seems atypical for TIA Lab Data [facility] Lab Attestation statement: I reviewed the patient's lab results. 12/23/24 07:19 12/23/24 07:19 Labs: Lab Results 12/23/24 12/23/24 Range/Units 07:19 13:47 WBC 5.0 (4.8-10.8) X10*3/uL RBC 5.27 (4.60-5.80) X10*6/uL Hgb 14.7 (14.0-18.0) g/dl Hct 44.1 (42.0-52.0) % MCV 83.7 (80.0-98.0) fL MCH 27.9 (27.0-33.0) pg MCHC 33.3 (31.0-36.0) g/dl RDW 13.9 (11.0-16.0) % Plt Count 146 L (160-400) X10*3/uL MPV 10.3 (9.4-12.4) fL Immature Gran % (Auto) 0.2 (0.0-0.4) % Neut % (Auto) 66.7 (45-73) % Lymph % (Auto) 19.6 L (20-40) % [place] % (Auto) 9.5 (2-11) % Eos % (Auto) 3.4 (0-4) % Baso % (Auto) 0.6 (0-2) % Lymph # (Auto) 1.0 L (1.2-4.9) X10*3/uL [place] # (Auto) 0.5 (0.1-1.2) X10*3/uL Eos # (Auto) 0.2 (0.0-0.4) X10*3/uL Baso # (Auto) 0.0 (0.0-0.2) X10*3/uL Abs Immat Gran (auto) 0.01 (0.00-0.03) X10*3/uL Absolute Neuts (auto) 3.3 (2.0-8.3) x10*3/uL Absolute Nucleated RBC 0.000 (0.0-0.012) X10*3/uL Nucleated RBC % (auto) 0.0 (0.0-0.2) /100WBC Sodium 143 (135-145) mmol/L Potassium 3.4 (3.3-5.1) mmol/L Chloride 109 H (96-108) mmol/L Carbon Dioxide 27 (22-29) mmol/L Anion Gap 10 L (12-20) BUN 21 H (9-16) mg/dL Creatinine 1.04 (0.5-1.4) mg/dL Estim Creat Clear Calc 85.5 Estimated GFR > 60 Random Glucose 99 (60-115) mg/dL Calcium 9.2 (8.4-10.2) mg/dL Urine Color Yellow Urine Appearance Clear Urine pH 6.0 (5.0-9.0) Ur Specific [place] 1.025 (1.005-1.025) Urine Protein 30 (1+) H (Neg-Trace) mg/dL Urine Glucose (UA) Negative (Negative) mg/dL Urine Ketones Negative (Negative) mg/dL Urine Blood Negative (Negative) Urine Nitrite Negative (Negative) Ur Leukocyte Esterase Negative (Negative) Urine RBC 0-2 (0-2) /HPF Urine WBC 0-5 (0-5) /HPF Ur Squamous Epith Cells 0-2 (0-2) /HPF Urine Bacteria None Seen (None Seen) Hyaline Casts 0-2 (0-2) /LPF Influenza Type A (PCR) NEGATIVE (Negative) Influenza Type B (PCR) NEGATIVE (Negative) RSV RNA Qual (PCR) NEGATIVE (Negative) SARS-CoV-2 RNA (RT-PCR) NEGATIVE (Negative) Independent Interpretation I performed an independent interpretation of an: EKG and CT Scan (normal ) Interpretation: Rate: 74 Rhythm: NSR [place]: left, LVH Normal P waves. Normal SALAZAR. Normal QRS complex. ST T wave : normal no SET qTC: 421 prior studies: The study has been interpreted contemporaneously by me. . Radiology Impression Discussion of test interpretation with radiology: I have reviewed the radiologist's reading. External Record Review External record reviewed: Outpatient record Prescription Management I considered prescription management with: Other Discharge Plan Discharge Clinical Impression: Facial paresthesia HTN (hypertension) Qualifiers: Hypertension type: unspecified Qualified Code(s): I10 - Essential (primary) hypertension Patient Disposition: Home, Self-Care Instructions: Paresthesia (ED), Hypertension (ED), Hydrochlorothiazide (By mouth) Additional Instructions: EKG and labs reassuring CTA and CT head of neck are normal you need to complete work up including ECHO of your heart and MRI of your brain return for any worsening symptoms, increased pressure over 170/100, numbness or weakness or any other concerns. start on 81mg aspirin daily Prescriptions: New hydrochlorothiazide 12.5 mg capsule 12.5 mg PO DAILY Qty: 30 0RF No Action metoprolol succinate 100 mg tablet extended release 24 hr 100 mg PO QAM alfuzosin 10 mg tablet extended release 24 hr 10 mg PO QAM kglbxeznkt-xrlfn-zym-ivonne-115HC 375-150-125 mg Tablet 375 tab PO DAILY cyclobenzaprine 10 mg tablet 10 mg PO TID PRN (Reason: muscle spasm) Qty: 10 0RF amlodipine 10 mg tablet 10 mg PO DAILY rosuvastatin 40 mg tablet 40 mg PO DAILY tadalafil [Cialis] 10 mg tablet 10 mg PO .2x week PRN (Reason: sexual activity) Qty: 30 2RF Rx Instructions: administer approximately 30min before sexual activity; do not use more than 1 dose per 48hrs [id number] [facility] [id number] Member [id number] Referrals: Grace Rodriguez MD [Primary Care Provider] - (1 week call to schedule) Stand Alone Forms: Work/School Release Print Language: Bangladeshi
--- OUTSIDE RECORDS SUMMARY | 2024-12-23 14:02 | XMS_ITS | Encounter Summary ---
Author Organization [facility] Address [address] [place] [address] Care Team Providers Care Embossing Machine Operator Name Role Phone Grace Rodriguez MD Primary Care Provider [phone] Reason for Visit * Reason Comments Med Refill Encounter Details Date Type Department Care Team ([facility] Contact Info) Description 12/02/2024 Refill [facility] [address] [place] [address] Grace Rodriguez MD [address] [place] [address] Benign prostatic hyperplasia without lower urinary tract [...] documented as of this encounter Care Teams Embossing Machine Operator Relationship Specialty Start Date End Date Grace Rodriguez MD [address] [place] [address] PCP - General Family Medicine 03/06/24 Rogelio Ladd MD. FACP [address] [place] [address] Medical Oncologist Oncology 12/24/23 documented as of this encounter
--- OUTSIDE RECORDS SUMMARY | 2024-12-23 14:03 | XMS_ITS | Encounter Summary ---
Author Organization [facility] [employer] Address [address] [place] [address] Care Team Providers Care Metal Ceiling Hanger Name Role Phone Grace Rodriguez MD Primary Care Provider [phone] Reason for Visit * Reason Comments Med Change Request Encounter Details Date Type Department Care Team ([facility] Contact Info) Description 12/24/2023 Refill [facility] [address] [place] [address] Yelena Mackay FNP Primary hypertension Social History [...] hypertension documented in this encounter Care Teams Metal Ceiling Hanger Relationship Specialty Start Date End Date Grace Rodriguez MD [address] [place] [address] PCP - General Family Medicine 03/06/24 Rogelio Ladd MD. FACP [address] [place] [address] Medical Oncologist Oncology 12/24/23 documented as of this encounter
--- OUTSIDE RECORDS SUMMARY | 2024-12-23 14:03 | XMS_ITS | Encounter Summary ---
Author Organization [employer] Address [address] [place] [address] Care Team Providers Care Patient Financial Services Manager Name Role Phone Grace Rodriguez MD Primary Care Provider [phone] Encounter Details Date Type Department Care Team ([facility] [address] [facility] Contact Info) Description 12/01/2024 Orders Only [facility] External Provider, [facility] Social History Tobacco Use Types Packs/Day Years [...] t he electric, gas, oil or water [employer] threatened to shut off services in your [...] on file documented as of this encounter Procedures Procedure Name Priority Date/Time Associated Diagnosis Comments US HEAD NECK SOFT TISSUE Routine 12/02/2024 11:56 AM EST documented in this encounter Results * US Head Neck Soft Tissue (12/02/2024 11:56 AM EST) Anatomical Region Laterality Modality Head, Neck Ultrasound 12/02/2024 11:5 6 AM EST Narrative 12/02/2024 11:57 AM EST ? [facility] ?[address] ? [place], [place] [address] ? Ultrasound Report ? Signed ? Patient: Ward Alvarado ?MR#: [id number] ? : 1965 ?Acct:[id number] ? Age/Sex: 58 / M ?ADM Date: 12/01/24 ? Loc: HO.HMGCX ? Attending Dr: Rogelio Ladd MD ? Ordering Physician: Rogelio Ladd MD ?? Date of Service: 12/01/24 ?? Procedure(s): US soft tiss head and/or neck ?? Accession Number(s): [id number] ? cc: Rogelio Ladd MD; Grace Rodriguez MD ? CLINICAL HISTORY: Right cervical adenopathy. ? Examination: Limited soft tissue ultrasound indication right-sided ?? cervical adenopathy ? Comparison: None. ? Findings: ? A few normal lymph nodes are imaged bilaterally, with normal thin cortices ?? and vascular/fatty loreta. No suspicious or abnormally enlarged lymph nodes ?? are noted. ? Impression: ? Normal-appearing small lymph nodes bilaterally. ? This document has been electronically signed by: Bereket Adams MD on ?? 12/02/2024 11:56:22 ? Dictated By: ?Bereket Adams MD ? Signed By: ?<Electronically signed by Bereket Adams MD in OV> ? 12/02/246 ? DD/ 55 ? TD/TT: 12/02/24 1156 ? Nurse Instructor: ? Procedure Note Donotdarinelter, Image - 12/02/2024 [facility] [place] [address] Ultrasound Report Signed Patient: Ward AlvaradoMR#: [id number] : 1965Acct:[id number] Age/Sex: 58 / MADM Date: 12/01/24 Loc: HO.HMGCX Attending Dr: Rogelio Ladd MD Ordering Physician: Rogelio Ladd MD Date of Service: 12/01/24 Procedure(s): US soft tiss head and/or neck Accession Number(s): [id number] cc: Rogelio Ladd MD; Grace Rodriguez MD CLINICAL HISTORY: Right cervical adenopathy. Examination: Limited soft tissue ultrasound indication right-sided cervical adenopathy Comparison: None. Findings: A few normal lymph nodes are imaged bilaterally, with normal thin cortices and vascular/fatty loreta. No suspicious or abnormally enlarged lymph nodes are noted. Impression: Normal-appearing small lymph nodes bilaterally. This document has been electronically signed by: Bereket Adams MD on 12/02/2024 11:56:22 Dictated By: Bereket Adams MD Signed By: <Electronically signed by Bereket Adams MD in OV> 12/02/24 1156 DD/ 1156 TD/TT: 12/02/24 1156 Nurse Instructor: [facility] External Provider IMG US PROCEDURES Edited Result - Final documented in this encounter Visit Diagnoses Not on filedocumented in this encounter Additional Health Concerns Assessment Noted Time PHQ-9 Depression Total Score: 2 03/06/20 24 8:35 AM EDT documented as of this encounter Care Teams Patient Financial Services Manager Relationship Specialty Start Date End Date Grace Rodriguez MD [address] [place] [address] PCP - General Family Medicine 03/06/24 Rogelio Ladd MD. [address] [address] Medical Oncologist Oncology 12/24/23 documented as of this encounter
--- OUTSIDE RECORDS SUMMARY | 2024-12-23 14:03 | XMS_ITS | Data Portability ---
Author Organization [place] [facility] Address [address] [place] [address] Care Team Providers Care Nuisance Wildlife Trapper Name Role Phone JONAH WANG Primary Care Provider MUNA CASTELLANO Referring Provider Assessment Encounter Date [...] direct microscopic laryngoscop y (SURG) 2023 024 [id number] Not available 4 09:08:56 Imaging PET-CT, skull base to mid-thigh scan - f/u to abnl scan at [place] 2023 [email or web address] [place] [facility], [address], [place], [address], 4 17:27:47 Medication Orders None recorded. Patient TargetsNo targets recorded. Patient InstructionsNo instructions recorded. Reason for Referral None Reported. Results Created Date Observation Date Name Description Value Unit Range Abnormal Flag Note LastModifiedBy Organization Detail LastModifiedTime 05/22/20 24 05/21/2024 PT subtl e whole body CPT [address] [place] PET/CT Imagin g Access ion Number : [id number] Kinsey freeman Name: Ward Alvarado Record Number : [id number] Date of : 1965 Date of Exam: 2023 Referr ing Physic gordon: Sahun bloomein , [facility] [address] [place] [address] Exam: PT SUBTLE Whole Body CPT 65417 Room Descri ption: [facility] o Pt4 EXAM: PET-CT Histor y: [...] Mild diffus e FDG uptake in the sprinkler helper ior wall of the nasoph arynx, axial [...] onical ly Signed By: Ange Pugh MD [facility] [address], [place], [address], 05/26/2024 07:05:13 06/01/20 24 05/28/2024 clini ivonne [...] on diagnostic imaging of skull and head 723268403 Active 2023 JUNI ELIAS MD [address] [place] [address] [place], [address], [facility] 15:22:09 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 Procedures Surgical History Date Name Laterality Status Provider Name and Address Organization Details Recorded Time 05/28/20 24 direct laryngoscopy with operating microscope completed JUNI IVORY MD [address] [facility], [place], [address], [place] [facility] 05/28/2024 11:54:58 05/28/20 24 tonsillectomy completed JUNI IVORY MD [address] [facility] [place],[address], [place], [address], [place] [facility] 05/28/2024 11:55:11 04/06/20 24 Fiberoptic Laryngoscopy (Comprehensive) completed JUNI IVORY MD [address] [facility] [place],[address] [place] [address], [place], [address], [place] [facility] 04/06/2024 15:26:55 selective neck dissection of cervical lymph nodes completed JUNI IVORY MD [address] [facility] [place] [place] [address], [place], [address], [place] [facility] 04/06/2024 14:59:59 Imaging Results Imaging Date Name Status LastModified by Organiz ation Details LastModified Time 05/21/2024 PT subtle whole body CPT 87133 completed [facility] [address] [facility], [place], [address], 05/26/2024 07:05:13 05/28/2024 clinical photo* completed Information [...] Updated DateTime 06/08/2024 170.18 cm 30.4 kg/m2 83209.92 g [facility] 06/08/2024 14:01:42 Date Recorded Body height Body mass index (BMI) Body weight Provider Name and Address Organization Details Last Updated DateTime 04/06/2024 170.18 cm 32.1 kg/m2 07354.44 g [facility] 04/06/2024 14:38:02 Social History None recorded. Functional Status None recorded. Mental Status None recorded. Family History Nothing Reported. Medical History No medical history recorded. Past Encounters Encounter ID Performer Location Encounter Start Date Encounter Closed Date Diagnosis/Indication Diagnosis SNOMED-CT Code Diagnosis ICD10 Code Diagnosis Note [id number] JUNI BURDICK MD [facility] [address] [address] 04/06/2024 14:19:53 04/06/2024 15:30:36 Abnormal findings on diagnostic imaging of skull and head 526784955 R93.0 Plasmacytoma 725968855 C 90.31 Polyp of vocal cord 9078 [...] dental [place], [place]. [id number] JUNI BURDICK MD [facility] [address] [place] [address] 06/08/2024 13:55:07 06/08/2024 14:18:48 History of malignant hematologic neoplasm 602305361 Z85.79 Chronic hoarseness 54[address] 105 R49.0 Health Concerns Section Related Observation LastModified by Organization Detai ls LastModified Time None Recorded Concern Status LastModified by Organization Details LastModified Time None Recorded Advance Directives Directive None Recorded Payers Encounter Date Sequence Insurance Name Policy Number Policy Moseley Covered Member ID Moseley Member ID Guarantor Name 04/06/2024 1 [facility] Ward Christiano [id number] Ward Christiano 06/08/2024 1 [facility] Ward Christiano [id number] Ward Christiano Notes Date Note Type Note Provider Name and Address Organization Details Recorded Time 04/06/2024 text/html Hx of plasmacyto ma right neck..s/p XRT and subsequent dissection. Now with abnl surveillance PET scan. 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 He reports some bleeding the first five days. He has been able to eat solids since Saturday. He requests a return to work note. JUNI IVORY MD [address] [place] [address], [place], [address], [place] [facility] 06/08/2024 16:22:57
--- OUTSIDE RECORDS SUMMARY | 2024-12-23 14:03 | XMS_ITS | Encounter Summary ---
Author Organization [employer] Address [address] [place] [address] Care Team Providers Care Pharmacy Scheduler Name Role Phone Grace Rodriguez MD Primary Care Provider [phone] Reason for Visit * Reason Comments Med Refill Encounter Details Date Type Department Care Team ([facility] Contact Info) Description 08/11/[address] [facility] [address] [place] [address] Yelena Mackay FNP Benign prostatic hyperplasia without [...] documented as of this encounter Care Teams Pharmacy Scheduler Relationship Specialty Start Date End Date Grace Rodriguez MD [address] [place] [address] PCP - General Family Medicine 03/06/24 Rogelio Ladd MD. F[address] [address] Medical Oncologist Oncology 12/24/23 documented as of this encounter
--- OUTSIDE RECORDS SUMMARY | 2024-12-23 14:03 | XMS_ITS | Clinical Summary ---
Author Organization [employer] Address [address] [facility] [address] [place] [address] Care Team Providers Care Paste Up Artist Apprentice Name Role Phone Grace Rodriguez MD Primary Care Provider [phone] Allergies No known active allergies Medications tadalafil (Cialis) 10 MG tablet Take 1 tablet (10 mg) by mouth if needed each day for erectile dysfunction. 10 tablet 1 03/06/20 24 Active rosuvastatin (Crestor) 40 MG tablet TOME 1 TABLETA POR VIA ORAL TODOS [place] 90 tablet 1 06/08/20 24 Active metoprolol succinate XL (Toprol-XL) 100 MG 24 hr tabletIndication s:Primary hypertension TAKE 1 TABLET BY MOUTH EVERY DAY. DO NOT CRUSH OR CHEW. 90 tablet 1 09/07/20 24 Active amLODIPine (Norvasc) 10 MG tablet TAKE 1 TABLET (10 MG) BY MOUTH ONCE PER DAY. 90 tablet 1 09/07/20 24 Active alfuzosin ER (Uroxatral) 10 MG 24 hr tabletIndication s:Benign prostatic hyperplasia without lower urinary tract symptoms TAKE 1 TABLET BY MOUTH ONCE PER DAY. DO NOT CRUSH, CHEW, OR SPLIT. 90 tablet 1 12/04/19 25 Active alfuzosin ER (Uroxatral) 10 MG 24 hr tabletIndication s:Benign prostatic hyperplasia without lower urinary tract symptoms Take 1 tablet (10 mg) by mouth Once per day. Do not crush, chew, or split. 90 tablet 1 03/13/20 24 025 Discontinued Active Problems Problem Noted Date Diagnosed Date [...] Encounters Date Type Department Care Team Description 12/23/2024 Orders Only GENERIC EXTERNAL DATA DEPARTMENT Provider, Generic External Data 12/02/2024 Refill [facility] [address] [place] [address] Grace Rodriguez MD Benign prostatic hyperplasia without lower urinary tract symptoms 12/01/2024 Orders Only [facility] External Provider, [facility] from Last 3 Months Immunizations Name Administration [...] - 1-dose 75+ series) 2041 Pneumococcal Vaccine: 50+ Years Completed 03/13/2024 HIB Vaccines Aged Out No [...] Procedure Name Priority Date/Time Associated Diagnosis Comments BASIC METABOLIC PANEL Routine 12/23/2024 7:19 AM EST URINALYSIS, COMPLETE, WITH REFLEX TO CULTURE Routine 12/23/2024 7:19 AM EST CBC WITH AUTO DIFFERENTIAL Routine 12/23/2024 7:19 AM EST URINALYSIS WITH REFLEX MICROSCOPIC Routine 12/23/2024 7:19 AM EST US HEAD NECK SOFT TISSUE Routine 12/02/2024 11:56 AM EST PROPHYLAXIS - ADULT Routine 07/17/2024 2 :00 PM EDT INTRAORAL - COMPLETE SERIES OF RADIOGRAPHIC IMAGES Routine 07/17/2024 2:00 PM EDT LIPID PANEL, STANDARD Routine 03/07/2024 12:00 AM EDT Primary hypertension from Last 3 Months or Most Recently Relevant to Health Maintenance Results * (ABNORMAL) Urinalysis, Complete, with Reflex to Culture (12/23/2024 7:19 AM EST) Color Urine Yellow [facility] Appearance Urine Clear [facility] PH 6.0 5.0 - 9.0 [facility] Glucose Urine UA Negative Negative mg/dL [facility] Urine Blood Negative Negative [facility] Specific [place] - Urine 1.025 1.005 - 1.025 [facility] Urine Protein 30 (1+)(A) Neg-Trace mg/dL [facility] Urine Ketones Negative Negative mg/dL [facility] Nitrite Urine Negative Negative [facility] Leukocyte Esterase Urine Negative Negative [facility] RBC Urine 0-2 0 - 2 /HPF [facility] Urine WBC 0-5 0 - 5 /HPF [facility] Urine Squamous Epithelial Cell 0-2 0 - 2 /HPF [facility] Urine Bacteria None Seen None Seen [facility] Hyaline Casts, Urine 0-2 0 - 2 /LPF [facility] 12/23/2024 7:19 AM EST 12/23/2024 7:25 AM EST Narrative [facility] - 12/23/2024 7:32 AM EST [id number], Clean Catch us Generic External Data Provider LAB URINE ORDERAB LES Final Result [facility] [address] [place] [address] [phone] * (ABNORMAL) CBC auto differential (12/23/2024 7:19 AM EST) White Blood Count 5.0 4.8 - 10.8 X10*3/uL [facility] Red Blood Count 5.27 4.60 - 5.80 X10*6/uL [facility] Hemoglobin 14.7 14.0 - 18.0 g/dl [facility] Hematocrit 44.1 42.0 - 52.0 % [facility] Mean Corpuscular Volume 83.7 80.0 - 98.0 fL [facility] Mean Corpuscular Hemoglobin 27.9 27.0 - 33.0 pg [facility] Mean Corpuscular HGB Conc 33.3 31.0 - 36.0 g/dl [facility] Red Cell Distribution Width 13.9 11.0 - 16.0 % [facility] Platelet Count 146(L) 160 - 400 X10*3/uL [facility] Mean Platelet Volume 10.3 9.4 - 12.4 fL [facility] Neutrophils Percent Auto 66.7 45 - 73 % [facility] Imm Gran Pct Auto 0.2 0.0 - 0.4 % [facility] Lymphocytes Percent Auto 19.6(L) 20 - 40 % [facility] Monocytes Percent Auto 9.5 2 - 11 % [facility] Eosinophils Percent Auto 3.4 0 - 4 % [facility] Basophils Percent Auto 0.6 0 - 2 % [facility] NRBC Pct Auto 0.0 0.0 - 0.2 /100WBC [facility] Neutrophils Absolute Auto 3.3 2.0 - 8.3 x10*3/uL [facility] Imm Gran Abs Auto 0.01 0.00 - 0.03 X10*3/uL [facility] Lymphocytes Absolute Auto 1.0(L) 1.2 - 4.9 X10*3/uL [facility] Monocytes Absolute Auto 0.5 0.1 - 1.2 X10*3/uL [facility] Eosinophils Absolute Auto 0.2 0.0 - 0.4 X10*3/uL [facility] Basophils Absolute Auto 0.0 0.0 - 0.2 X10*3/uL [facility] NRBC Abs Auto 0.000 0.0 - 0.012 X10*3/uL [facility] 12/23/2024 7:19 AM EST 12/23/2024 7:25 AM EST us Generic External Data Provider LAB BLOOD ORDERAB LES Final Result [facility] [address] [place] [phone] * (ABNORMAL) Urinalysis w/reflex microscopic (12/23/2024 7:19 AM EST) Color Urine Yellow [facility] Appearance Urine Clear [facility] PH 6.0 5.0 - 9.0 [facility] Glucose Urine UA Negative Negative mg/dL [facility] Urine Blood Negative Negative [facility] Specific [place] - Urine 1.025 1.005 - 1.025 [facility] Urine Protein 30 (1+)(A) Neg-Trace mg/dL [facility] Urine Ketones Negative Negative mg/dL [facility] Nitrite Urine Negative Negative [facility] Leukocyte Esterase Urine Negative Negative [facility] 12/23/2024 7:19 AM EST 12/23/2024 7:25 AM EST Narrative [facility] - 12/23/2024 7:30 AM EST [id number], Clean C[employer] us Generic External Data Provider LAB URINE ORDERAB LES Final Result Performing Organization Address City/[facility]/ZIP Co de Phone Number [facility] [address] [place] [phone] * (ABNORMAL) Basic Metabolic Panel (12/23/2024 7:19 AM EST) Sodium 143 135 - 145 mmol/L [facility] Potassium 3.4 3.3 - 5.1 mmol/L [facility] Chloride 109(H) 96 - 108 mmol/L [facility] Carbon Dioxide 27 22 - 29 mmol/L [facility] Anion Gap 10(L) 12 - 20 [facility] Urea Nitrogen (BUN) 21(H) 9 - 16 mg/dL [facility] Creatinine, Serum 1.04 0.5 - 1.4 mg/dL [facility] Creatinine Clr Calc Pharmacy 85.5 [facility] Comment:eGFR (calculated fro m the MDRD study equation) and eCrCl(calculated from the Cockcroft-Gault equation) are based ondifferent parameters and may not yield comparable results.If eCrCl result is absurd, please check patient'sheight/weight. Estimated Glomerular Filt Rate >60 [facility] Comment:Chronic Kidney Disea se: Estimated GFR < 60 mL/min/1.94g9Vnfhog Kidney Disease: Estimated GFR < 15 mL/min/1.73m2 Glucose 99 60 - 115 mg/dL [facility] Calcium 9.2 8.4 - 10.2 mg/dL [facility] 12/23/2024 7:19 AM EST 12/23/2024 7:25 AM EST us Generic External Data Provider LAB BLOOD ORDERAB LES Final Result Performing Organization Address City/[facility]/ZIP Co de Phone Number [facility] [address] [place] [phone] * US Head Neck Soft Tissue (12/02/2024 11:56 AM EST) Anatomical Region Laterality Modality Head, Neck Ultrasound 12/02/2024 11:5 6 AM EST Narrative 12/02/2024 11:57 AM EST ? [facility] ?[address] [facility] [address] [address] ? [place] [address] ? Ultrasound Report ? Signed ? Patient: Christiano,Ward ?MR#: [id number] ? : 1965 ?Acct:[id number] ? Age/Sex: 58 / M ?ADM Date: 12/01/24 ? Loc: HO.[facility]GCX ? Attending Dr: Rogelio Ladd MD ? Ordering Physician: Rogelio Ladd MD ?? Date of Service: 12/01/24 ?? Procedure(s): US soft tiss head and/or neck ?? Accession Number(s): [id number] ? cc: Rogelio Ladd MD; Grace Rodriguez [...] by Bereket Adams MD in OV> ? 12/02/241155 ? DD/ 55 ? TD/TT: 12/02/241155 ? Bonding Machine Operator: ? Procedure Note [place] - 12/02/2024 [facility] Primary Care [facility] [place] [phone] Ultrasound Report Signed Patient: Ward AlvaradoMR#: [id number] : 1965Acct:[id number] Age/Sex: 58 / MADM Date: 12/01/24 [facility] Dr: Rogelio Ladd MD Ordering Physician: Rogelio Ladd MD Date of Service: 12/01/24 Procedure(s): US soft tiss head and/or neck Accession Number(s): [id number] cc: Rogelio Ladd MD; Grace Rodriguez MD [...] 12/02/24 1156 DD/ 1156 TD/TT: 12/02/24 1156 Bonding Machine Operator: us [facility] External Provider IMG US PROCEDURES Edited Result - Final * (ABNORMAL) Lipid Panel, Standard (03/07/2024 12:00 AM EDT) Triglycerides 111 <150 mg/dL [facility] Comment:Desirable Triglyceri de: less than 150 mg/dLBorderline High Triglyceride 150-199 mg/dLHigh Triglyceride: 200-499 mg/dLVery High Triglyceride: greater than or equal to 5OO mg/dL Cholesterol 183 <200 mg/dL [facility] Comment:Desirable Cholestero l: less than 200 mg/dLBorderline High Cholesterol: 200-239 mg/dLHigh Cholesterol: greater than 239 mg/dL LDL Cholesterol Calculated 120(H) <100 mg/dL [facility] Comment:Desirable LDL: less than 100 mg/dLNear Optimal/Above Optimal LDL: 110- 129 mg/dLBorderline High LDL: 130-159 mg/dLHigh LDL: 160-189 mg/dLVery High LDL: greater than or equal to 190 mg/dL HDL Cholesterol 41 >40 mg/dL [facility] Comment:Desirable HDL: great er than 40 mg/dL Note: This HDL assay may give artificially low results in patients with liver disease. Blood Venous blood specimen / Unknown 03/07/2024 03/07/2024 us Grace Rodriguez MD LAB BLOOD ORDERABLES Final Re sult [facility] [address] [place] [phone] from Last 3 Months or Most Recently Relevant to Health Maintenance Insurance [facility] Care Teams Paste Up Artist Apprentice Relationship Specialty Start Date End Date Grace Rodriguez MD [address] [place] [phone] PCP - General Family Medicine 03/06/24 Rogelio Ladd MD. FACP [address] [place] [phone] Medical Oncologist Oncology 12/24/23
--- OUTSIDE RECORDS SUMMARY | 2024-12-23 14:03 | XMS_ITS | Encounter Summary ---
Author Organization [employer] Address [address] [place] [address] Care Team Providers Care Char Conveyor Tender Name Role Phone Grace Rodriguez MD Primary Care Provider [phone] Encounter Details Date Type Department Care Team ([facility] Contact Info) Description 12/23/2024 Orders Only GENERIC EXTERNAL DATA DEPARTMENT Provider, Generic External Data Social History Tobacco Use Types Packs/Day Years [...] is your housing situation today? I have maryk ramirez 02/05/[address] you [...] Procedure Name Priority Date/Time Associated Diagnosis Comments URINALYSIS, COMPLETE, WITH REFLEX TO CULTURE Routine 12/23/2024 7:19 AM EST CBC WITH AUTO DIFFERENTIAL Routine 12/23/2024 7:19 AM EST URINALYSIS WITH REFLEX MICROSCOPIC Routine 12/23/2024 7:19 AM EST BASIC METABOLIC PANEL Routine 12/23/2024 7:19 AM EST documented in this encounter Results * (ABNORMAL) Basic Metabolic Panel (12/23/2024 7:19 AM EST) Sodium 143 135 - 145 mmol/L [facility] Potassium 3.4 3.3 - 5.1 mmol/L [facility] Chloride 109(H) 96 - 108 mmol/L [facility] Carbon Dioxide 27 22 - 29 mmol/L [facility] Anion Gap 10(L) 12 - 20 [facility] Urea Nitrogen (BUN) 21(H) 9 - 16 mg/dL [facility] Creatinine, Serum 1.04 0.5 - 1.4 mg/dL [facility] Creatinine Clr Calc Pharmacy 85.5 [facility] Comment:eGFR (calculated fro m the MDRD study equation) and eCrCl(calculated from the Cockcroft-Gault equation) are based ondifferent parameters and may not yield comparable results.If eCrCl result is absurd, please check patient'sheight/weight. Estimated Glomerular Filt Rate >60 [facility] Comment:Chronic Kidney Disea se: Estimated GFR < 60 mL/min/1.28f6Oytumd Kidney Disease: Estimated GFR < 15 mL/min/1.73m2 Glucose 99 60 - 115 mg/dL [facility] Calcium 9.2 8.4 - 10.2 mg/dL [facility] 12/23/2024 7:19 AM EST 12/23/2024 7:25 AM EST us Generic External Data Provider LAB BLOOD ORDERAB LES Final Result [facility] [address] [place] [phone] * (ABNORMAL) Urinalysis, Complete, with Reflex to Culture (12/23/2024 7:19 AM EST) Color Urine Yellow [facility] Appearance Urine Clear [facility] PH 6.0 5.0 - 9.0 [facility] Glucose Urine UA Negative Negative mg/dL [facility] Urine Blood Negative Negative [facility] Specific [place] - Urine 1.025 1.005 - 1.025 [facility] Urine Protein 30 (1+)(A) Neg-Trace mg/dL [facility] Urine Ketones Negative Negative mg/dL [facility] Nitrite Urine Negative Negative [facility] Leukocyte Esterase Urine Negative Negative [facility] RBC Urine 0-2 0 - 2 /HPF [facility] Urine WBC 0-5 0 - 5 /HPF [facility] Urine Squamous Epithelial Cell 0-2 0 - 2 /HPF [facility] Urine Bacteria None Seen None Seen [facility] Hyaline Casts, Urine 0-2 0 - 2 /LPF [facility] 12/23/2024 7:19 AM EST 12/23/2024 7:25 AM EST Narrative [facility] - 12/23/2024 7:32 AM EST [id number], Clean Catch us Generic External Data Provider LAB URINE ORDERAB LES Final Result [facility] [address] [place] [phone] * (ABNORMAL) CBC auto differential (12/23/2024 7:19 AM EST) White Blood Count 5.0 4.8 - 10.8 X10*3/uL [facility] Red Blood Count 5.27 4.60 - 5.80 X10*6/uL [facility] Hemoglobin 14.7 14.0 - 18.0 g/dl [facility] Hematocrit 44.1 42.0 - 52.0 % [facility] Mean Corpuscular Volume 83.7 80.0 - 98.0 fL [facility] Mean Corpuscular Hemoglobin 27.9 27.0 - 33.0 pg [facility] Mean Corpuscular HGB Conc 33.3 31.0 - 36.0 g/dl [facility] Red Cell Distribution Width 13.9 11.0 - 16.0 % [facility] Platelet Count 146(L) 160 - 400 X10*3/uL [facility] Mean Platelet Volume 10.3 9.4 - 12.4 fL [facility] Neutrophils Percent Auto 66.7 45 - 73 % [facility] Imm Gran Pct Auto 0.2 0.0 - 0.4 % [facility] Lymphocytes Percent Auto 19.6(L) 20 - 40 % [facility] Monocytes Percent Auto 9.5 2 - 11 % [facility] Eosinophils Percent Auto 3.4 0 - 4 % [facility] Basophils Percent Auto 0.6 0 - 2 % [facility] NRBC Pct Auto 0.0 0.0 - 0.2 /100WBC [facility] Neutrophils Absolute Auto 3.3 2.0 - 8.3 x10*3/uL [facility] Imm Gran Abs Auto 0.01 0.00 - 0.03 X10*3/uL [facility] Lymphocytes Absolute Auto 1.0(L) 1.2 - 4.9 X10*3/uL [facility] Monocytes Absolute Auto 0.5 0.1 - 1.2 X10*3/uL [facility] Eosinophils Absolute Auto 0.2 0.0 - 0.4 X10*3/uL [facility] Basophils Absolute Auto 0.0 0.0 - 0.2 X10*3/uL [facility] NRBC Abs Auto 0.000 0.0 - 0.012 X10*3/uL [facility] 12/23/2024 7:19 AM EST 12/23/2024 7:25 AM EST us Generic External Data Provider LAB BLOOD ORDERAB LES Final Result Performing Organization Address [facility] Co de Phone Number [facility] [address] [place] [phone] * (ABNORMAL) Urinalysis w/reflex microscopic (12/23/2024 7:19 AM EST) Color Urine Yellow [facility] Appearance Urine Clear [facility] PH 6.0 5.0 - 9.0 [facility] Glucose Urine UA Negative Negative mg/dL [facility] Urine Blood Negative Negative [facility] Specific [place] - Urine 1.025 1.005 - 1.025 [facility] Urine Protein 30 (1+)(A) Neg-Trace mg/dL [facility] Urine Ketones Negative Negative mg/dL [facility] Nitrite Urine Negative Negative [facility] Leukocyte Esterase Urine Negative Negative [facility] 12/23/2024 7:19 AM EST 12/23/2024 7:25 AM EST Narrative [facility] - 12/23/2024 7:30 AM EST [id number], Clean Catch us Generic External Data Provider LAB URINE ORDERAB LES Final Result Performing Organization Address City/[facility]/ZIP Co de Phone Number [facility] [address] [place] [phone] documented in this encounter Visit Diagnoses Not on filedocumented in this encounter Additional Health Concerns Assessment Noted Time PHQ-9 Depression Total Score: 2 03/06/20 24 8:35 AM EDT documented as of this encounter Care Teams Char Conveyor Tender Relationship Specialty Start Date End Date Grace Rodriguez MD [address] [place] [address] PCP - General Family Medicine 03/06/24 Rogleio Ladd MD. FACP [address] [place] [address] Medical Oncologist Oncology 12/24/23 documented as of this encounter
[2024-12-23 14:28] LABS: Influenza A PCR NEGATIVE (Negative); Influenza B PCR NEGATIVE (Negative); Resp Syncy Virus RNA Qual PCR NEGATIVE (Negative); SARS COV2 PCR INHOUSE NEGATIVE (Negative)
[2024-12-23] MEDS: iohexoL 350 MG/ML 100 ML INFUS..BTL 70 ML IV (16:56)
[2024-12-23 17:01] VITALS: BP 132/85; PULSE 63; RESP 18; TEMP 36.6; O2SAT 99
[2024-12-23 18:04] VITALS: BP 132/85; PULSE 63; RESP 18; TEMP 36.6; O2SAT 99
== END 2024-12-23 18:22 | disposition home or self-care (01) ==
PROVIDERS: Emergency Provider Emergency Medicine; PCP Family Medicine
DX: R29.810 Facial weakness (principal); I10 Essential (primary) hypertension; R51.9 Headache, unspecified; R29.700 NIHSS score 0; Z03.818 Encounter for observation for suspected exposure to other biological agents ruled out
CPT/HCPCS: 0241U; 36415; 70450; 70496; 70498; 80048; 81001; 85025; 93005; 99284; 99285; Q9967

== ENCOUNTER → 2024-12-23 13:39 | Outpatient (BNV) | payer OTHER, SELFPAY | PROVIDERS: Emergency Provider Emergency Medicine; PCP Family Medicine; Visit Provider Internal Medicine | DX: R94.31 Abnormal electrocardiogram [ECG] [EKG] (principal); I10 Essential (primary) hypertension | CPT/HCPCS: 93010 ==

== ENCOUNTER → 2024-12-23 13:39 | Outpatient (BNV) | payer OTHER, SELFPAY | PROVIDERS: Emergency Provider Emergency Medicine; PCP Family Medicine; Visit Provider Radiology Diagnostic Radiology | DX: R20.2 Paresthesia of skin (principal); R51.9 Headache, unspecified | CPT/HCPCS: 70450; 70496; 70498 ==

== ENCOUNTER 2025-01-05 15:12 | Outpatient (AMB) | payer OTHER, SELFPAY ==
--- NOTE | 2025-01-05 15:17 | A.OFFVIS_ITS ---
Intake Visit Reasons: OV-RT knee 08/21/24 Intake Note: Ward is a 59 year old male who presents today for follow up after undergoing a right knee arthroscopy on 08/21/2024. The patient reports mild intermittent discomfort in his right knee. He denies any fevers or chills. He continues with his exercise program. He takes ibuprofen which gives him fairly good relief. Allergies No Known Allergies Allergy (Verified 01/05/25 15:17) Medication List - Last Reconciled 01/05/25 by Darwin Leach MD alfuzosin ER 10 mg PO QAM amlodipine 10 mg PO DAILY cyclobenzaprine 10 mg PO TID PRN [id number] 375-150-125 mg 375 tabs PO DAILY hydrochlorothiazide 12.5 mg PO DAILY metoprolol succinate ER 100 mg PO QAM rosuvastatin 40 mg PO DAILY tadalafil (Cialis) 10 mg PO .2x week PRN PFSH Medical History Elevated cholesterol Plasmacytoma Erectile dysfunction Kidney stone Biceps tendon rupture High blood pressure disorder Surgical History H/O right knee surgery Hx of excision of mass Hx of hernia repair Hx laparoscopic cholecystectomy Hx of vasectomy Social History Household Members: Spouse Are you a primary child care provider to a significant other at home: No Do you presently have visiting nurse or other home services: No Patient Tobacco Use Status: Never used Tobacco service: No Current occupational status: employed Physical Exam Const Other: Well-nourished well-developed very friendly male awake alert and oriented x3 in no acute distress Extrem Other: Bilateral lower extremity examination shows good capillary refill, no skin lesions noted, normal sensation light touch Right knee examination shows that the surgical incisions are well healed, no erythema, mild discomfort with range of motion, minimal crepitus with range of motion, no instability Assessment & Plan Assessment & Plan (1) Right knee pain: Code(s): M25.561 - Pain in right knee Category: Medical Plan Mr. Christiano John continues to do fairly well after undergoing right knee arthrosco pic surgery on 08/21/2024. 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 At this point the patient's symptoms are tolerable to him. We will hold off on a cortisone injection. He will continue with his exercise program. He will contact me prior to his follow-up appointment in 2-3 months should his symptoms worsen in any way. Feel free to call me at any time should questions regarding his orthopedic management arise. I spent 21 minutes in reviewing the patient's records and imaging studies, seeing the patient and documenting in the medical record. Coding Level of Care Code Est Pt Level 3 (04440) Complex EM visit Add On G2211 Diagnoses Right knee pain M25.561
--- OUTSIDE RECORDS SUMMARY | 2025-01-05 19:14 | XMS_ITS | Encounter Summary ---
Author Organization [employer] Address [address] 7[address] [place] [address] Care Team Providers Care Hose Inspector Name Role Phone Grace Rodriguez MD Primary Care Provider [phone] Encounter Details Date Type Department Care Team (Late st Contact Info) Description 12/23/2024 Orders Only GENERIC [...] t he electric, gas, oil or water [employer] threatened to shut off services in your [...] as of this encounter Plan of Treatment Upcoming Encounters Date Type Department Care Team (Late st Contact Info) Description 02/09/2025 1:45 PM EDT Office Visit [facility] [address] [place], [place] [phone] Scar Beasley MD [address] [place] [address] documented as of this encounter Procedures Procedure Name Priority Date/Time Associated Diagnosis Comments CTA HEAD NECK W AND WO CONTRAST Routine 12/23/2024 5:[address] HEAD WO CONTRAST Routine 12/23/2024 2 :58 PM EST SARS COV2/INFLUENZA A/B AND RSV RNA QL NAAT Routine 12/23/2024 1:47 PM EST URINALYSIS, COMPLETE, WITH REFLEX TO CULTURE Routine 12/23/2024 7:19 AM EST CBC WITH AUTO DIFFERENTIAL Routine 12/23/2024 7:19 AM EST URINALYSIS WITH REFLEX MICROSCOPIC Routine 12/23/2024 7:19 AM EST BASIC METABOLIC PANEL Routine 12/23/2024 7:19 AM EST documented in this encounter Results * CTA Head Neck w/ and w/o Contrast (12/23/2024 5:35 PM EST) Anatomical Region Laterality Modality Head, Neck Computed Tomogra phy 12/23/2024 5:35 PM EST Narrative 12/23/2024 5:36 PM EST ? [facility] ?[address] ?[place] [address] ? CT Scan Report ? Signed ? Patient: Christiano John,Ward ?MR#: [id number] ?? 679 ? : 1965 ?Acct:[id number] ? Age/Sex: 59 / M ?ADM Date: 12/23/24 ? Loc: HO.ED ? Attending Dr: ? Ordering Physician: Kim English DO ?? Date of Service: 12/23/24 ?? Procedure(s): CT angio head neck ?? Accession Number(s): [id number] ? cc: Kim English DO; Grace Rodriguez MD ? Report Number: ?? [id number]: Total DLP = ??716.00 mGy-cm ? CLINICAL HISTORY: R sided facial numbness, headaches ? CT angiography head and neck with contrast. 3D Postprocessing. ? Comparison: CT - CT ANGIO HEAD NECK - 12/23/24 16:31 EST ?? CT/NE/SR - CT HEAD/BRAIN WO IV CON - 12/23/24 14:58 EST ? Findings: ?? Aortic arch and cervical great vessels are patent. ?? Intracranial arteries are patent. No aneurysm, dissection, or occlusion. ?? No abnormal intracranial enhancement. ? The visualized thyroid gland is unremarkable. No cervical mass or fluid ?? collection. ?? Lung apices clear. ?? No acute fracture. ? IMPRESSION: ?? Patent head and neck CTA. ? This document has been electronically signed by: Pretty Lackey MD on ?? 12/23/2024 17:35:55 ? Dictated By: ?Pretty Lackey MD ? Signed By: ?<Electronically signed by Pretty Lackey MD in OV> ? 12/23/24 1736 ? DD/ 1735 ? TD/TT: 12/23/24 1735 ? Machine Plug Shaper: ? Procedure Note [place] - 12/23/[address] [address] [address] Scan Report Signed Patient: Christiano John Ivmarcelina#: [id number] 679 : 1965Acct:[id number] Age/Sex: 59 / MADM Date: 12/23/24 Loc: HO.ED Attending Dr: Ordering Physician: Kim English DO Date of Service: 12/23/24 Procedure(s): CT angio head neck Accession Number(s): [id number] cc: Kim English DO; Grace Rodriguez MD Report Number: [id number]: Total DLP = 716.00 mGy-cm CLINICAL HISTORY: R sided facial numbness, headaches CT angiography head and neck with contrast. 3D Postprocessing. Comparison: CT - CT ANGIO HEAD NECK - 12/23/24 16:[address]/NE/SR - CT HEAD/BRAIN WO IV CON - 12/23/24 14:58 EST Findings: Aortic arch and cervical great vessels are patent. Intracranial arteries are patent. No aneurysm, dissection, or occlusion. No abnormal intracranial enhancement. The visualized thyroid gland is unremarkable. No cervical mass or fluid collection. Lung apices clear. No acute fracture. IMPRESSION: Patent head and neck CTA. This document has been electronically signed by: Pretty Lackey MD on 12/23/2024 17:35:55 Dictated By: Pretty Lackey MD Signed By: <Electronically signed by Pretty Lackey MD in OV> 12/23/24 173 DD/ 173 TD/TT: 12/23/24 173 Machine Plug Shaper: [facility] External Provider IMG CT PROCEDURES Final Result * CT Head w/o Contrast (12/23/2024 2:58 PM EST) Anatomical Region Laterality Modality Head, Neck Computed Tomogra phy 12/23/2024 2:58 PM EST Narrative 12/23/2024 3:29 PM EST ? [facility] ?[address] ?[place] [address] ? CT Scan Report ? Signed ? Patient: Christiano John,Ward ?MR#: [id number] ?? 679 ? : 1965 ?Acct:[id number] ? Age/Sex: 59 / M ?ADM Date: 02/19/25 ? Loc: HO.ED ? Attending Dr: ? Ordering Physician: Kim English DO ?? Date of Service: 12/23/24 ?? Procedure(s): CT head/brain wo IV con ?? Accession Number(s): [id number] ? cc: Kim English DO; Grace Rodriguez MD ? Report Number: ?? [id number]: Total DLP = ??754.00 mGy-cm ?? EXAMINATION: ?? CT HEAD WITHOUT CONTRAST ? CLINICAL INFORMATION: ?? headaches ? COMPARISON: ?? None available. ? TECHNIQUE: ?? Contiguous axial imaging was performed from the skull base to vertex ?? without intravenous administration of contrast. ? This CT examination was performed using dose optimization techniques as ?? appropriate, variously including the following: ?? *Automated exposure control ?? *Adjustment of mA and/or kV according to patient size (this includes ?? techniques or standardized protocols for targeted exams where dose is ?? matched to indication/reason for exam; i.e. extremities or head) ?? *Use of iterative reconstruction technique ? DLP: ?? 754 mGy-cm ? FINDINGS: ?? No acute intracranial hemorrhage, mass effect, midline shift, ?? hydrocephalus or herniation. ?? Fonseca-white matter differentiation is normal. ?? Posterior cranial fossa contents demonstrated no acute intracranial ?? hemorrhage or mass effect. ?? Sellar/suprasellar region demonstrated no gross masses. ?? Craniocervical junction is intact and normal. ?? Calcified plaques in the cavernous supraclinoid segments both ICA. ?? No mass or fluid collections in the intraconal or extraconal ?? compartments of the orbits. ?? Bony calvarium is intact. Mucosal thickening without air-fluid levels ?? in the maxillary sinuses. Pneumatized left anterior clinoid process and ?? dorsum sella.. ?? Tympanic cavities and mastoid air cells are aerated. ? CT/CT head/brain wo IV con ?? IMPRESSION: ?? No acute or structural brain abnormality by CT. ? Electronically signed by: ??Carl Arroyo MD ??12/23/2024 03:26 PM ?? EST RP ? Dictated By: ?Carl Wallace MD ? Signed By: ?<Electronically signed by Carl Zamorano MD in OV> ? 12/23/24 1526 ? DD/ 1458 ? TD/TT: 12/23/24 1520 ? Machine Plug Shaper: ? Procedure Note Donotuseinterpreter, Image - 12/23/[address] [address] [address] Scan Report Signed Patient: Ward ZapataMR#: [id number] 679 : 1965Acct:[id number] Age/Sex: 59 / MADM Date: 12/23/24 Loc: HO.ED Attending Dr: Ordering Physician: Kim English DO Date of Service: 12/23/24 Procedure(s): CT head/brain wo IV con Accession Number(s): [id number] cc: Kim English DO; Grace Rodriguez MD Report Number: [id number]: Total DLP = 754.00 mGy-cm EXAMINATION: CT HEAD WITHOUT CONTRAST CLINICAL INFORMATION: headaches COMPARISON: None available. TECHNIQUE: Contiguous axial imaging was performed from the skull base to vertex without intravenous administration of contrast. This CT examination was performed using dose optimization techniques as appropriate, variously including the following: *Automated exposure control *Adjustment of mA and/or kV according to patient size (this includes techniques or standardized protocols for targeted exams where dose is matched to indication/reason for exam; i.e. extremities or head) *Use of iterative reconstruction technique DLP: 754 mGy-cm FINDINGS: No acute intracranial hemorrhage, mass effect, midline shift, hydrocephalus or herniation. Fonseca-white matter differentiation is normal. Posterior cranial fossa contents demonstrated no acute intracranial hemorrhage or mass effect. Sellar/suprasellar region demonstrated no gross masses. Craniocervical junction is intact and normal. Calcified plaques in the cavernous supraclinoid segments both ICA. No mass or fluid collections in the intraconal or extraconal compartments of the orbits. Bony calvarium is intact. Mucosal thickening without air-fluid levels in the maxillary sinuses. Pneumatized left anterior clinoid process and dorsum sella.. Tympanic cavities and mastoid air cells are aerated. CT/CT head/brain wo IV con IMPRESSION: No acute or structural brain abnormality by CT. Electronically signed by: Carl Arroyo MD 12/23/2024 03:26 PM EST Dictated By: Carl Wallace MD Signed By: <Electronically signed by Carl Zamorano MDin OV> 12/23/24 1526 DD/ 1458 TD/TT: 12/23/24 1520 Machine Plug Shaper: [facility] External Provider IMG CT PROCEDURES Final Result * SARS-CoV-2 RNA, Influenza A/B, and RSV RNA, Ql NAAT (12/23/2024 1:47 PM EST) Influenza A PCR NEGATIVE Negative [facility] Influenza B PCR NEGATIVE Negative [facility] Resp Syncy Virus RNA Qual PCR NEGATIVE Negative [facility] SARS COV2 PCR NEGATIVE Negative [facility] Comment:All test results mus t be correlated with clinical findings.Negative results do not preclude SARS-CoV2, influenza Avirus, influenza B virus and/or RSV infectionand should not be used as the sole basis for treatment orother patient management decisions. Negative results must becombined with clinical observations, patient history, andepidemiological information.This test has not been evaluated for monitoring treatment ofinfection.This test has been authorized by the FDA under an EmergencyUse Authorization (EUA) for use by authorized laboratories.Testing performed on the [employer] GeneXpert utilizingreal-time RT-PCR.All SARS CoV2 and positive influenza A/B results arereported to [facility]. 12/23/2024 1:47 PM EST 12/23/2024 1:49 PM EST Generic External Data Provider LAB MICROBIOLOGY - GENERAL ORDERABLES Final Result [facility] [address] [place] [phone] * (ABNORMAL) Basic Metabolic Panel (12/23/2024 7:19 AM EST) Sodium 143 135 - 145 mmol/L [facility] Potassium 3.4 3.3 - 5.1 mmol/L [facility] Chloride 109(H) 96 - 108 mmol/L [facility] Carbon Dioxide 27 22 - 29 mmol/L [facility] Anion Gap 10(L) 12 - 20 [facility] Urea Nitrogen (BUN) 21(H) 9 - 16 mg/dL [facility] Creatinine, Serum 1.04 0.5 - 1.4 mg/dL [facility] Creatinine Clr Calc Pharmacy 85.5 [facility] Comment:eGFR (calculated fro m the MDRD study equation) and eCrCl(calculated from the Cockcroft-Gault equation) are based ondifferent parameters and may not yield comparable results.If eCrCl result is absurd, please check patient'sheight/weight. Estimated Glomerular Filt Rate >60 [facility] Comment:Chronic Kidney Disea se: Estimated GFR < 60 mL/min/1.10h4Tzlqsc Kidney Disease: Estimated GFR < 15 mL/min/1.73m2 Glucose 99 60 - 115 mg/dL [facility] Calcium 9.2 8.4 - 10.2 mg/dL [facility] 12/23/2024 7:19 AM EST 12/23/2024 7:25 AM EST us Generic External Data Provider LAB BLOOD ORDERAB LES Final Result [facility] [address] [place] [address] [phone] * (ABNORMAL) Urinalysis, Complete, with Reflex to Culture (12/23/2024 7:19 AM EST) Color Urine Yellow [facility] Appearance Urine Clear [facility] PH 6.0 5.0 - 9.0 [facility] Glucose Urine UA Negative Negative mg/dL [facility] Urine Blood Negative Negative [facility] Specific [place] - Urine 1.025 1.005 - 1.025 [facility] Urine Protein 30 (1+)(A) Neg-Trace mg/dL [facility] Urine Ketones Negative Negative mg/dL [facility] Nitrite Urine Negative Negative [facility] Leukocyte Esterase Urine Negative Negative [facility] RBC Urine 0-2 0 - 2 /HPF [facility] Urine WBC 0-5 0 - 5 /HPF [facility] Urine Squamous Epithelial Cell 0-2 0 - 2 /HPF [facility] Urine Bacteria None Seen None Seen [facility] Hyaline Casts, Urine 0-2 0 - 2 /LPF [facility] 12/23/2024 7:19 AM EST 12/23/2024 7:25 AM EST Narrative [facility] - 12/23/2024 7:32 AM EST [id number], Clean Catch us Generic External Data Provider LAB URINE ORDERAB LES Final Result [facility] [address] [place] [phone] * (ABNORMAL) CBC auto differential (12/23/2024 7:19 AM EST) White Blood Count 5.0 4.8 - 10.8 X10*3/uL [facility] Red Blood Count 5.27 4.60 - 5.80 X10*6/uL [facility] Hemoglobin 14.7 14.0 - 18.0 g/dl [facility] Hematocrit 44.1 42.0 - 52.0 % [facility] Mean Corpuscular Volume 83.7 80.0 - 98.0 fL [facility] Mean Corpuscular Hemoglobin 27.9 27.0 - 33.0 pg [facility] Mean Corpuscular HGB Conc 33.3 31.0 - 36.0 g/dl [facility] Red Cell Distribution Width 13.9 11.0 - 16.0 % [facility] Platelet Count 146(L) 160 - 400 X10*3/uL [facility] Mean Platelet Volume 10.3 9.4 - 12.4 fL [facility] Neutrophils Percent Auto 66.7 45 - 73 % [facility] Imm Gran Pct Auto 0.2 0.0 - 0.4 % [facility] Lymphocytes Percent Auto 19.6(L) 20 - 40 % [facility] Monocytes Percent Auto 9.5 2 - 11 % [facility] Eosinophils Percent Auto 3.4 0 - 4 % [facility] Basophils Percent Auto 0.6 0 - 2 % [facility] NRBC Pct Auto 0.0 0.0 - 0.2 /100WBC [facility] Neutrophils Absolute Auto 3.3 2.0 - 8.3 x10*3/uL [facility] Imm Gran Abs Auto 0.01 0.00 - 0.03 X10*3/uL [facility] Lymphocytes Absolute Auto 1.0(L) 1.2 - 4.9 X10*3/uL [facility] Monocytes Absolute Auto 0.5 0.1 - 1.2 X10*3/uL [facility] Eosinophils Absolute Auto 0.2 0.0 - 0.4 X10*3/uL [facility] Basophils Absolute Auto 0.0 0.0 - 0.2 X10*3/uL [facility] NRBC Abs Auto 0.000 0.0 - 0.012 X10*3/uL [facility] 12/23/2024 7:19 AM EST 12/23/2024 7:25 AM EST us Generic External Data Provider LAB BLOOD ORDERAB LES Final Result Performing Organization Address City/State/[facility] Co de Phone Number [facility] [address] [place] [phone] * (ABNORMAL) Urinalysis w/reflex microscopic (12/23/2024 7:19 AM EST) Color Urine Yellow [facility] Appearance Urine Clear [facility] PH 6.0 5.0 - 9.0 [facility] Glucose Urine UA Negative Negative mg/dL [facility] Urine Blood Negative Negative [facility] Specific [place] - Urine 1.025 1.005 - 1.025 [facility] Urine Protein 30 (1+)(A) Neg-Trace mg/dL [facility] Urine Ketones Negative Negative mg/dL [facility] Nitrite Urine Negative Negative [facility] Leukocyte Esterase Urine Negative Negative [facility] 12/23/2024 7:19 AM EST 12/23/2024 7:25 AM EST Narrative [facility] - 12/23/2024 7:30 AM EST [id number], Clean Catch us Generic External Data Provider LAB URINE ORDERAB LES Final Result [facility] [address] [place] [phone] [phone] documented in this encounter Visit Diagnoses Not on filedocumented in this encounter Additional Health Concerns Assessment Noted Time PHQ-9 Depression Total Score: 2 03/06/20 24 8:35 AM EDT documented as of this encounter Care Teams Hose Inspector Relationship Specialty Start Date End Date Grace Rodriguez MD [address] [place] [address] PCP - General Family Medicine 03/06/24 Rogelio Ladd MD. FACP [address] [place] [phone] Medical Oncologist Oncology 12/24/23 documented as of this encounter
--- OUTSIDE RECORDS SUMMARY | 2025-01-05 19:14 | XMS_ITS | Encounter Summary ---
Author Organization [employer] Address [address] [place] [address] Care Team Providers Care Corrosion Technician Name Role Phone Grace Rodriguez MD Primary Care Provider [phone] Reason for Visit * Reason Comments ER Follow-up Encounter Details Date Type Department Care Team ([facility] Contact Info) Description 12/28/2024 10:00 AM EST Office Visit [facility] [address] [place] [address] Lauryn Love MD [address] [place] [address] Primary hypertension (Primary Dx); Intractable headache, unspecified chronicity pattern, unspecified headache type Social History Tobacco Use Types Packs/Day Years [...] PM EDT documented as of this encounter Last Filed Vital Signs Vital Sign Reading Time Taken Comments Blood Pressure 140/88 12/28/2024 10:02 AM EST Pulse 90 12/28/2024 10:02 AM EST Temperature 36.6 ??C (97.9 ??F) 12/28/2024 10:[address] Respiratory Rate 18 12/28/2024 10:02 AM EST Oxygen Saturation - - Inhaled Oxygen Concentration - - Weight 93.9 kg (207 lb) 12/28/2024 10:02 AM EST Height 172.7 cm (5' 8 ) 12/28/2024 10:02 AM EST Body Mass Index 31.47 12/28/2024 10:02 AM EST documented in this encounter Progress Notes * Lauryn Love MD - 12/28/2024 10:00 AM EST Subjective Patient ID: Ward Alvarado is a 59 y.o. male who presents for ER Follow-up. Headache This is a new problem. The current episode started in the past 7 days. The problem occurs intermittently. The problem has been unchanged. The pain is located in the Frontal region. The pain radiates to the face. The pain quality is not similar to prior headaches. The quality of the pain is described as band- like. The pain is moderate. Associated symptoms include scalp tenderness. Pertinent negatives include no abdominal pain, abnormal behavior, anorexia, back pain, blurred vision, coughing, dizziness, drainage, ear pain, eye pain, eye redness, eye watering, facial sweating, fever, hearing loss, numbness, phonophobia, photophobia or rhinorrhea. Exacerbated by: high BP. His past medical history is significant for hypertension. Review of Systems Constitutional: Negative. Negative for fever. HENT: Negative for ear pain, hearing loss and rhinorrhea. Eyes: Negative for blurred vision, photophobia, pain and redness. Respiratory: Negative. Negative for cough. Cardiovascular: Negative. Gastrointestinal: Negative. Negative for abdominal pain and anorexia. Genitourinary: Negative. Musculoskeletal: Negative for back pain. Neurological: Positive for headaches. Negative for dizziness and numbness. Objective Physical Exam Constitutional: Appearance: Normal appearance. Cardiovascular: Rate and Rhythm: Normal rate and regular rhythm. Pulmonary: Effort: Pulmonary effort is normal. Breath sounds: Normal breath sounds. Neurological: General: No focal deficit present. Mental Status: He is alert. Assessment/Plan Diagnoses and all orders for this visit: Primary hypertension Comments: Started On HCTZ 25mg Maintain a low-sodium diet (less than 2 grams per day). Maintain a regular cardiovascular exercise program. Advised to maintain a low-fat, low-cholesterol diet. Counseled regarding importance of weight loss. Counseled re: potential co-morbidities including cardiovascular disease. Orders: - Basic Metabolic Panel; Future - Lipid Panel, Standard; Future - Hepatic Function Panel; Future Intractable headache, unspecified chronicity pattern, unspecified headache type Comments: Mostly due to higher BP Other orders - hydroCHLOROthiazide (HYDRODiuril) 25 MG tablet; Take 1 tablet (25 mg) by mouth Once per day. documented in this encounter Plan of Treatment Upcoming Encounters Date Type Department Care Team (Late st Contact Info) Description 02/09/2025 1:45 PM EDT Office Visit [facility] [address] [place] [address] Scar Beasley MD [address] [place] [address] Scheduled Orders Name Type Priority Associated Diagnoses Orde r Schedule Basic Metabolic Panel Lab Routine Primary hypertension Expected: 12/28/2024 (Approximate), Expires: 12/28/2025 Lipid Panel, Standard Lab Routine Primary hypertension Expected: 12/28/2024 (Approximate), Expires: 12/28/2025 Hepatic Function Panel Lab Routine Primary hypertension Expected: 12/28/2024 (Approximate), Expires: 12/28/2025 documented as of this encounter Visit Diagnoses Diagnosis Primary hypertension- Primary Unspecified essential hypertension Intractable headache, unspecified chronicity pattern, unspecified headache type documented in this encounter Additional Health Concerns Assessment Noted Time PHQ-9 Depression Total Score: 2 03/06/20 8:35 AM EDT documented as of this encounter Care Teams Corrosion Technician Relationship Specialty Start Date End Date Grace Rodriguez MD [address] [place] [phone] PCP - General Family Medicine 03/06/24 Rogelio Ladd MD. FAC[address] [address] Medical Oncologist Oncology 12/24/23 documented as of this encounter
--- OUTSIDE RECORDS SUMMARY | 2025-01-05 19:14 | XMS_ITS | Encounter Summary ---
Author Organization [employer] Address [address] [facility] [address] [place] [address] Care Team Providers Care Retail Customer Service Representative Name Role Phone Grace Rodriguez MD Primary Care Provider [phone] Reason for Visit * Reason Comments Med Change Request Encounter Details Date Type Department Care Team ([facility] Contact Info) Description 12/24/2023 Refill [facility] [address] [place] [address] Yelena Mcakay FNP Primary hypertension Social History Tobacco Use [...] Upcoming Encounters Date Type Department Care Team ([facility] Contact Info) Description 02/09/2025 1:45 PM EDT Office Visit [facility] [address] [place], [place] [phone] Scar Beasley MD [address] [place], [place] [phone] documented as of this encounter Visit Diagnoses Diagnosis Primary hypertension Unspecified essential hypertension documented in this encounter Care Teams Retail Customer Service Representative Relationship Specialty Start Date End Date Grace Rodriguez MD [address] [place] [address] PCP - General Family Medicine 03/06/24 Rogelio Ladd MD. FACP [address] [place] [address] Medical Oncologist Oncology 12/24/23 documented as of this encounter
--- OUTSIDE RECORDS SUMMARY | 2025-01-05 19:14 | XMS_ITS | Encounter Summary ---
Author Organization [employer] Address [address] [place] [address] Care Team Providers Care Bilingual Patient Support Caseworker Name Role Phone Grace Rodriguez MD Primary Care Provider [phone] Reason for Visit * Reason Comments Med Refill Encounter Details Date Type Department Care Team ([facility] st Contact Info) Description 08/11/2024 Refill [facility] [address] [place] [address] Yelena Mackay FNP Benign prostatic hyperplasia without [...] Description 02/09/2025 1:45 PM EDT Office Visit [facility] [address] [place] [address] Scar Beasley MD [address] [place] [address] documented as of this encounter Visit Diagnoses Diagnosis Benign prostatic hyperplasia without lower urinary tract symptoms documented in this encounter Additional Health Concerns Assessment Noted Time PHQ-9 Depression Total Score: 2 03/06/20 8:35 AM EDT documented as of this encounter Care Teams Bilingual Patient Support Caseworker Relationship Specialty Start Date End Date Grace Rodriguez MD [address] [place] [address] PCP - General Family Medicine 03/06/24 Rogelio Ladd MD. FACP [address] [place] [address] Medical Oncologist Oncology 12/24/23 documented as of this encounter
--- OUTSIDE RECORDS SUMMARY | 2025-01-05 19:14 | XMS_ITS | Clinical Summary ---
Author Organization [employer] Address [address] [facility] [address] [place] [address] Care Team Providers Care Database Modeler Name Role Phone Grace Rodriguez MD Primary Care Provider [phone] Allergies No known active allergies Medications tadalafil (Cialis) 10 MG tablet Take 1 tablet (10 mg) by mouth if needed each day for erectile dysfunction. 10 tablet 1 4 Active rosuvastatin (Crestor) 40 MG tablet TOME [...] PER DAY. 90 tablet 1 4 Active alfuzosin ER (Uroxatral) 10 MG 24 hr tabletIndications :Benign prostatic hyperplasia without lower urinary tract symptoms TAKE 1 TABLET BY MOUTH ONCE PER DAY. DO NOT CRUSH, CHEW, OR SPLIT. 90 tablet 1 5 Active hydroCHLOROthiazi de (HYDRODiuril) 25 MG tablet Take 1 tablet (25 mg) by mouth Once per day. 30 tablet 11 5 12/28/19 26 Active Active Problems Problem Noted Date Diagnosed [...] Encounters Date Type Department Care Team Description 12/28/2024 10:00 AM EST Office Visit [facility] [address] [place] [address] Lauryn Love MD Primary hypertension (Primary Dx); Intractable headache, unspecified chronicity pattern, unspecified headache type 12/28/2024 Travel 12/23/2024 Orders Only GENERIC EXTERNAL DATA DEPARTMENT Provider, Generic External Data 12/02/2024 Refill [facility] [address] [place] [address] Grace Rodriguez MD Benign prostatic hyperplasia without lower urinary tract symptoms 12/01/2024 Orders Only [facility] External Provider, [facility] from Last 3 Months Immunizations Name Administration [...] 18 12/28/2024 10:02 AM EST Oxygen Saturation 97% 03/20/2024 10:04 AM EDT Inhaled Oxygen Concentration - - Weight 93.9 kg (207 lb) 12/28/2024 10:02 AM EST Height 172.7 cm (5' 8 ) 12/28/2024 10:02 AM EST Body Mass Index 31.47 12/28/2024 10:02 AM EST Plan of Treatment Upcoming Encounters Date Type Department Care Team ([facility] st Contact Info) Description 02/09/2025 1:45 PM EDT Office Visit [facility] [address] [place] [address] Scar Beasley MD [address] [place], [place] [phone] Health Maintenance Due Date Last Done Comments [...] (2 - Pfizer risk series) 09/20/2023 08/30/2023 Dental Prophylaxis 01/15/2025 07/17/2024 Depression Screening 03/06/2025 03/06/2024, 03/06/2024 SDOH Screening 03/06/2025 03/06/2024 Dental X-Ray: Bitewings 07/18/2025 07/17/2024 Tobacco Screening 12/28/2025 12/28/2024 Dental X-Ray: Full Mouth 07/18/2027 07/17/2024 Lipid Panel 03/07/2029 03/07/2024 DTaP/Tdap/Td Vaccines (2 - T d or Tdap) 03/13/2034 03/13/2024 RSV Patients and Patients Aged 60 years or older (1 - 1-dose 75+ series) 2041 Pneumococcal Vaccine: 50+ Years Completed 03/13/2024 Influenza Vaccine Completed 11/17/2024, 08/30/2023 HIB Vaccines Aged Out No longer eligi [...] QL NAAT Routine 12/23/2024 1:47 PM EST BASIC METABOLIC PANEL Routine 12/23/2024 7:19 [...] Recently Relevant to Health Maintenance Results * CTA Head Neck w/ and w/o Contrast (12/23/2024 5:35 PM EST) Anatomical Region Laterality Modality Head, Neck Computed Tomogra phy 12/23/2024 5:35 PM EST Narrative 12/23/2024 5:36 PM EST ? [facility] ?[address] ?[place] [address] ? CT Scan Report ? Signed ? Patient: Christiano John,Ward ?MR#: [id number] ?? [id number] ? : 1965 ?Acct:[id number] ? Age/Sex: 59 / M ?ADM Date: 12/23/24 ? Loc: HO.ED ? Attending Dr: ? Ordering Physician: Kim English DO ?? Date of Service: 12/23/24 ?? Procedure(s): CT angio head neck ?? Accession Number(s): [id number] ? cc: Kim English DO; Grace Rodriguez MD ? Report Number: ?? [id number]: Total DLP = ??716.00 mGy-cm ? CLINICAL HISTORY: R sided facial numbness, headaches ? CT angiography head and neck with contrast. 3D Postprocessing. ? Comparison: CT - CT ANGIO HEAD NECK - 12/23/24 16:31 EST ?? CT/KS/SR - CT HEAD/BRAIN WO IV CON - [...] DD/ 1735 ? TD/TT: 12/23/24 1735 ? Early Childhood Education Specialist: ? Procedure Note Britany, Image - 12/23/[address] [address] [address] Scan Report Signed Patient: Ward ZapataMR#: [id number] : 1965Acct:[id number] Age/Sex: 59 / MADM Date: 12/23/24 Loc: HO.ED Attending Dr: Ordering Physician: Kim English DO Date of Service: 12/23/24 Procedure(s): CT angio head neck Accession Number(s): [id number] cc: Kim English DO; Grace Rodriguez MD Report Number: [id number]: Total DLP = 716.00 mGy-cm CLINICAL HISTORY: R sided facial numbness, headaches CT angiography head and neck with contrast. 3D Postprocessing. Comparison: CT - CT ANGIO HEAD NECK - 12/23/24 16:[address]/KS/SR - CT HEAD/BRAIN WO IV CON - [...] by Pretty Lackey MD in OV> 12/23/24 1736 DD/ 173 TD/TT: 12/23/24 173 Early Childhood Education Specialist: [facility] External Provider IMG CT PROCEDURES Final Result * CT Head w/o Contrast (12/23/2024 2:58 PM EST) Anatomical Region Laterality Modality Head, Neck Computed Tomogra phy 12/23/2024 2:58 PM EST Narrative 12/23/2024 3:29 PM EST ? [facility] ?[address] ?[place] [address] ? CT Scan Report ? Signed ? Patient: Christiano John,Ward ?MR#: [id number] ?? [id number] ? : 1965 ?Acct:[id number] ? Age/Sex: 59 / M ?ADM Date: 12/23/24 ? Loc: HO.ED ? Attending Dr: ? Ordering Physician: Kim English DO ?? Date of Service: 12/23/24 ?? Procedure(s): CT head/brain wo IV con ?? Accession Number(s): [id number] ? cc: Kim English DO; Grace Rodriguez MD ? Report Number: ?? [id number]: Total DLP = ??754.00 mGy-cm ?? EXAMINATION: [...] DD/ 1458 ? TD/TT: 12/23/24 1520 ? Early Childhood Education Specialist: ? Procedure Note Donotuseinterpreter, Image - 12/23/[address] [address] [address] Scan Report Signed Patient: Ward ZapataMR#: [id number] : 1965Acct:[id number] Age/Sex: 59 / MADM Date: 12/23/24 Loc: HO.ED Attending Dr: Ordering Physician: Kim English DO Date of Service: 12/23/24 Procedure(s): CT head/brain wo IV con Accession Number(s): [id number] cc: Kim English DO; Grace Rodriguez MD Report Number: [id number]: Total DLP = 754.00 mGy-cm EXAMINATION: CT [...] 12/23/24 1526 DD/ 1458 TD/TT: 12/23/24 1520 Early Childhood Education Specialist: [facility] External Provider IMG CT PROCEDURES Final Result * SARS-CoV-2 RNA, Influenza A/B, and RSV RNA, Ql NAAT (12/23/2024 1:47 PM EST) Influenza A PCR NEGATIVE Negative [facility] Influenza B PCR NEGATIVE Negative [facility] Resp Syncy Virus RNA Qual PCR NEGATIVE Negative [facility] SARS COV2 PCR NEGATIVE Negative [facility] Comment:All test results mus t [...] use by authorized laboratories.Testing performed on the ishBowl GeneXpert utilizingreal-time RT-PCR.All SARS CoV2 and positive influenza A/B results arereported to [facility]. 12/23/2024 1:47 PM EST 12/23/2024 1:49 PM EST Generic External Data Provider LAB MICROBIOLOGY - GENERAL ORDERABLES Final Result [facility] [address] [place] [phone] [phone] * (ABNORMAL) Urinalysis, Complete, with Reflex to Culture (12/23/2024 7:19 AM EST) Color Urine Yellow [facility] Appearance Urine Clear [facility] PH 6.0 5.0 - 9.0 [facility] Glucose Urine UA Negative Negative mg/dL [facility] Urine Blood Negative Negative [facility] Specific Parks - Urine 1.025 1.005 - 1.025 [facility] Urine Protein 30 (1+)(A) Neg-Trace mg/dL [facility] Urine Ketones Negative Negative mg/dL [facility] Nitrite Urine Negative Negative [facility] Leukocyte Esterase Urine Negative Negative [facility] RBC Urine 0-2 0 - 2 /HPF [facility] Urine WBC 0-5 0 - 5 /HPF [facility] Urine Squamous Epithelial Cell 0-2 0 - 2 /HPF [facility] Urine Bacteria None Seen None Seen [facility] Hyaline Casts, Urine 0-2 0 - 2 /LPF [facility] 12/23/2024 7:19 AM EST 12/23/2024 7:25 AM EST Narrative [facility] - 12/23/2024 7:32 AM EST [id number], Clean Catch us Generic External Data Provider LAB URINE ORDERAB LES Final Result Performing Organization Address City/State/[facility] Co de Phone Number [facility] [address] [place] [phone] * (ABNORMAL) CBC auto differential (12/23/2024 7:19 AM EST) White Blood Count 5.0 4.8 - 10.8 X10*3/uL [facility] Red Blood Count 5.27 4.60 - 5.80 X10*6/uL [facility] Hemoglobin 14.7 14.0 - 18.0 g/dl [facility] Hematocrit 44.1 42.0 - 52.0 % [facility] Mean Corpuscular Volume 83.7 80.0 - 98.0 fL [facility] Mean Corpuscular Hemoglobin 27.9 27.0 - 33.0 pg [facility] Mean Corpuscular HGB Conc 33.3 31.0 - 36.0 g/dl [facility] Red Cell Distribution Width 13.9 11.0 - 16.0 % [facility] Platelet Count 146(L) 160 - 400 X10*3/uL [facility] Mean Platelet Volume 10.3 9.4 - 12.4 fL [facility] Neutrophils Percent Auto 66.7 45 - 73 % [facility] Imm Gran Pct Auto 0.2 0.0 - 0.4 % [facility] Lymphocytes Percent Auto 19.6(L) 20 - 40 % [facility] Monocytes Percent Auto 9.5 2 - 11 % [facility] Eosinophils Percent Auto 3.4 0 - 4 % [facility] Basophils Percent Auto 0.6 0 - 2 % [facility] NRBC Pct Auto 0.0 0.0 - 0.2 /100WBC [facility] Neutrophils Absolute Auto 3.3 2.0 - 8.3 x10*3/uL [facility] Imm Gran Abs Auto 0.01 0.00 - 0.03 X10*3/uL [facility] Lymphocytes Absolute Auto 1.0(L) 1.2 - 4.9 X10*3/uL [facility] Monocytes Absolute Auto 0.5 0.1 - 1.2 X10*3/uL [facility] Eosinophils Absolute Auto 0.2 0.0 - 0.4 X10*3/uL [facility] Basophils Absolute Auto 0.0 0.0 - 0.2 X10*3/uL [facility] NRBC Abs Auto 0.000 0.0 - 0.012 X10*3/uL [facility] 12/23/2024 7:19 AM EST 12/23/2024 7:25 AM EST us Generic External Data Provider LAB BLOOD ORDERAB LES Final Result [facility] [address] [place] [phone] * (ABNORMAL) Urinalysis w/reflex microscopic (12/23/2024 7:19 AM EST) Color Urine Yellow [facility] Appearance Urine Clear [facility] PH 6.0 5.0 - 9.0 [facility] Glucose Urine UA Negative Negative mg/dL [facility] Urine Blood Negative Negative [facility] Specific Parks - Urine 1.025 1.005 - 1.025 [facility] Urine Protein 30 (1+)(A) Neg-Trace mg/dL [facility] Urine Ketones Negative Negative mg/dL [facility] Nitrite Urine Negative Negative [facility] Leukocyte Esterase Urine Negative Negative [facility] 12/23/2024 7:19 AM EST 12/23/2024 7:25 AM EST Narrative [facility] - 12/23/2024 7:30 AM EST [id number], Clean Catch Generic External Data Provider LAB URINE ORDERAB LES Final Result Performing Organization Address [facility] de Phone Number [facility] [address] [place] [phone] * (ABNORMAL) Basic Metabolic Panel (12/23/2024 7:19 AM EST) Sodium 143 135 - 145 mmol/L [facility] Potassium 3.4 3.3 - 5.1 mmol/L [facility] Chloride 109(H) 96 - 108 mmol/L [facility] Carbon Dioxide 27 22 - 29 mmol/L [facility] Anion Gap 10(L) 12 - 20 [facility] Urea Nitrogen (BUN) 21(H) 9 - 16 mg/dL [facility] Creatinine, Serum 1.04 0.5 - 1.4 mg/dL [facility] Creatinine Clr Calc Pharmacy 85.5 [facility] Comment:eGFR (calculated fro m the MDRD study equation) and eCrCl(calculated from the Cockcroft-Gault equation) are based ondifferent parameters and may not yield comparable results.If eCrCl result is absurd, please check patient'sheight/weight. Estimated Glomerular Filt Rate >60 [facility] Comment:Chronic Kidney Disea se: Estimated GFR < 60 mL/min/1.30n9Blgaln Kidney Disease: Estimated GFR < 15 mL/min/1.73m2 Glucose 99 60 - 115 mg/dL [facility] Calcium 9.2 8.4 - 10.2 mg/dL [facility] 12/23/2024 7:19 AM EST 12/23/2024 7:25 AM EST us Generic External Data Provider LAB BLOOD ORDERAB LES Final Result Performing Organization Address City/State/[facility] Co de Phone Number [facility] [address] [place] [phone] * US Head Neck Soft Tissue (12/02/2024 11:56 AM EST) Anatomical Region Laterality Modality Head, Neck Ultrasound 12/02/2024 11:5 6 AM EST Narrative 12/02/2024 11:57 AM EST ? [facility] ?[address] [facility] ? [place] [address] ? Ultrasound Report ? Signed ? Patient: Christiano,Ward ?MR#: [id number] ? : 1965 ?Acct:[id number] ? Age/Sex: 58 / M ?ADM Date: 12/01/ ? Loc: HO.HMGCX ? Attending Dr: Rogelio Ladd MD ? Ordering Physician: Rogelio Ladd MD ?? Date of Service: 12/01/24 ?? Procedure(s): US soft tiss head and/or neck ?? Accession Number(s): [id number] ? cc: Rogelio Ladd MD; Grace Rodriguez [...] by Bereket Adams MD in OV> ? 12/02/24 1156 ? DD/ 1156 ? TD/TT: 12/02/24 1156 ? Early Childhood Education Specialist: ? Procedure Note Donotuseinterpreter, Image - 12/02/2024 [facility] [address] [place] [address] [place] [address] Ultrasound Report Signed Patient: Jania Alvarado#: [id number] : 1965Acct:[id number] Age/Sex: 58 / MADM Date: 12/01/24 Loc: [facility] Attending Dr: Rogelio Ladd MD Ordering Physician: Rogelio Ladd MD Date of Service: 12/01/24 Procedure(s): US soft tiss head and/or neck Accession Number(s): [id number] cc: Rogelio Ladd MD; Grace Rodriguez MD [...] signed by Bereket Adams MD in OV> 12/02/241155 DD/ 55 TD/TT: 12/02/241155 Early Childhood Education Specialist: us [facility] External Provider IMG US PROCEDURES Edited Result - Final * (ABNORMAL) Lipid Panel, Standard (03/07/2024 12:00 AM EDT) Triglycerides 111 <150 mg/dL [facility] Comment:Desirable Triglyceri de: less than 150 mg/dLBorderline High Triglyceride 150-199 mg/dLHigh Triglyceride: 200-499 mg/dLVery High Triglyceride: greater than or equal to 5OO mg/dL Cholesterol 183 <200 mg/dL [facility] Comment:Desirable Cholestero l: less than 200 mg/dLBorderline High Cholesterol: 200-239 mg/dLHigh Cholesterol: greater than 239 mg/dL LDL Cholesterol Calculated 120(H) <100 mg/dL [facility] Comment:Desirable LDL: less than 100 mg/dLNear Optimal/Above Optimal LDL: 110- 129 mg/dLBorderline High LDL: 130-159 mg/dLHigh LDL: 160-189 mg/dLVery High LDL: greater than or equal to 190 mg/dL HDL Cholesterol 41 >40 mg/dL [facility] Comment:Desirable HDL: great er than 40 mg/dL Note: This HDL assay may give artificially low results in patients with liver disease. Blood Venous blood specimen / Unknown 03/07/2024 03/07/2024 us Grace Rodriguez MD LAB BLOOD ORDERABLES Final Re sult [facility] [address] [place] [address] [phone] from Last 3 Months or Most Recently Relevant to Health Maintenance Insurance [place] [id number] Care Teams Database Modeler Relationship Specialty Start Date End Date Grace Rodriguez MD [address] [place] [phone] PCP - General Family Medicine 03/06/24 Rogelio Ladd MD. FAC[address] [address] Medical Oncologist Oncology 12/24/23
--- OUTSIDE RECORDS SUMMARY | 2025-01-05 19:14 | XMS_ITS | Encounter Summary ---
Author Organization [employer] Address [address] [place] [address] Care Team Providers Care Mining Plant Operator Name Role Phone Grace Rodriguez MD Primary Care Provider [phone] Encounter Details Date Type Department Care Team (Latest Contact Info) Description 12/28/2024 Travel Social History Tobacco Use Types Packs/Day Years [...] [facility] [address] [place] [address] Scar Beasley MD [address] [place] [address] documented as of this encounter Visit Diagnoses Not on filedocumented in this encounter Additional Health Concerns Assessment Noted Time PHQ-9 Depression Total Score: 2 03/06/20 8:35 AM EDT documented as of this encounter Care Teams Mining Plant Operator Relationship Specialty Start Date End Date Grace Rodriguez MD [address] [place] [address] PCP - General Family Medicine 03/06/24 Rogelio Ladd MD. FACP [address] [place] [address] Medical Oncologist Oncology 12/24/23 documented as of this encounter
== END 2025-01-05 15:42 | disposition home or self-care (01) ==
PROVIDERS: PCP Family Medicine; Visit Provider Orthopaedic Surgery
DX: M25.561 Pain in right knee (principal); S83.241D Other tear of medial meniscus, current injury, right knee, subsequent encounter
CPT/HCPCS: 99213

== ENCOUNTER 2025-05-05 14:48 | Outpatient (AMB) | payer OTHER, SELFPAY ==
--- NOTE | 2025-05-05 14:51 | A.OFFVIS_ITS ---
Vital Signs 3 05/05/25 15:04 Height 5 ft 7 in Weight 204 lb BMI 31.9 BP 113/64 Blood Pressure Location Lt brachial Position Sitting Pulse 86 Pulse Oximetry (%) 97 Oxygen Delivery Method Room Air Intake Visit Reasons: pre colonoscopy Intake Note: Patient new consult for 2nd pre Colonoscopy screening, 1st one was [place]. Patient denies any GI issues for today. [employer] Consultant Required: No Accompanied by: Self / Same As Patient Allergies No Known Allergies Allergy (Verified 05/05/25 14:50) HPI HPI pre colonoscopy: Details: 59-year-old male here for preprocedural meeting to discuss a screening colonoscopy. He is referred by [facility]. PMX Obesity-BMI 31 High cholesterol Hypertension Nephrolithiasis Lumbar degenerative disc disease/lumbar spondylosis Erectile dysfunction History of plasmacytoma of cervical lymph node * SURGICAL HISTORY Vasectomy Cholecystectomy Right supraspinatus repair Right biceps tendon repair Lumbar diskectomy Cystoscopy Lithotripsy * ALLERGIES: NKDA * [employer] LABS: Laboratory Tests 11/24/24 12/23/24 15:37 07:19 WBC 5.0 Hgb 14.7 Hct 44.1 Plt Count 146 L Estimated GFR > 60 Total Bilirubin 0.3 AST 34 ALT 46 H Alkaline Phosphatase 73 TODAY'S VISIT His last colonoscopy was in 2019 in [place] and he had 3 polyps removed only one of which was a TA (he showed me the report including pathology). He denies any bowel or uppr GI problems. No anes or sed problems No cardiac or resp problems. NO ID problems. He has a hx of TA but there is no known FHX crc or polyps. [facility] Medical History (Updated 05/05/25 @ 17:24 by PREM Oliva) Elevated cholesterol Plasmacytoma Erectile dysfunction Kidney stone Biceps tendon rupture High blood pressure disorder Surgical History H/O right knee surgery Hx of excision of mass Hx of hernia repair Hx laparoscopic cholecystectomy Hx of vasectomy Social History Household Members: Spouse Are you a primary animal care technician to a significant other at home: No Do you presently have visiting nurse or other home services: No Patient Tobacco Use Status: Never used Tobacco service: No Current occupational status: employed [employer] Const Denies fatigue, Denies fever(s), Denies night sweats, Denies poor appetite and Denies weight loss Eyes Details: glasses Reports requires corrective lenses ENT Reports Normal hearing present, Denies dental pain, Denies dysphagia, Denies hearing loss, Denies mouth pain, Denies odynophagia, Denies throat swelling, Denies tongue swelling and Reports other (Dentition adequate) Card Reports no additional complaints Resp Reports no additional complaints GI Details: Denies abdominal pain, Denies melena, Denies bloating, Denies hematochezia, Denies constipation, Denies GI cramping, Denies dysphagia, Denies excessive flatus, Denies early satiety, Denies heartburn, Denies diarrhea, Denies nausea, Denies odynophagia, Denies vomiting and Denies hematemesis Skin/Breast Denies pruritus, Denies lesions, Denies rash and Denies jaundice Neuro Reports Normal hearing present and Denies Abnormal speech present Endo Denies fatigue Aller/Immun Denies throat swelling and Denies tongue swelling Physical Exam Vital Signs: Last Vital Signs Pulse 86 05/05/25 15:04 BP 113/64 05/05/25 15:04 Pulse Ox 97 05/05/25 15:04 Oxygen Delivery Method Room Air 05/05/25 15:04 BMI result Body Mass Index 31.9 Const General: cooperative, no acute distress, well developed and well groomed Nutritional Appearance: well nourished and obese Orientation/consciousness: oriented to person, oriented to place and oriented to time Limitations: No language barrier HEENT Head: Yes normocephalic and Yes atraumatic Eyes General: appearance normal, both eyes and all related structures Pupils: Equal, round and reactive pupils present Neck Neck: Yes normal visual inspection and Yes no lymphadenopathy Thyroid: Thyroid normal Resp Effort & Inspection: normal respiratory effort and able to speak in complete sentences Auscultation: clear to auscultation bilaterally Cardio Rate: regular rate Rhythm: regular rhythm Heart sounds: Normal, physiologic split S2 sound present Peripheral pulses: radial pulses present and posterior tibial pulses present GI Inspection: No distended, No Abdominal panniculus present and Yes obesity Palpation (GI): Soft to palpation, nontender, no guarding, not rigid and No hepatosplenomegaly present Percussion: Yes normal to percussion Auscultation: normal bowel sounds Rectal Exam - Male: Yes deferred Abdomen image: 2 1. surgical scar Skin General skin exam: no rashes or lesions noted, turgor normal, skin not dry, no jaundice, No spider nevi and no striae Rashes: no rashes Nails: normal Neuro General: oriented to person, oriented to place and oriented to time Cranial nerves: Yes Equal, round and reactive pupils present and Yes Normal hearing present Speech: No Abnormal speech present Extrem General: Yes normal to inspection, No clubbing, No cyanosis and No edema Psych Appearance: grossly normal and well kempt Mental Status: mental status grossly normal Speech and movement: Normal speech and movement present Affect: normal affect Attitude: cooperative Thought process: Normal thought process present and not confabulating Thought content: Normal thought content present Insight: Good insight present (Psych) Judgement: Good judgement present (Psych) Assessment & Plan Assessment & Plan (1) Pre-op examination: Code(s): Z01.818 - Encounter for other preprocedural examination Category: Medical (2) Tubular adenoma of colon: Comment: 2019 on colonoscopy performed in [place] Code(s): D12.6 - Benign neoplasm of colon, unspecified Category: Medical Plan His last colonoscopy was in 2019 in [place] and he had 3 polyps removed only one of which was a TA (he showed me the report including pathology). He denies any bowel or uppEr GI problems. No anes or sed problems No cardiac or resp problems. NO ID problems. He has a hx of TA but there is no known FHX crc or polyps. Orders: Orders 2 Colonoscopy - GI Use Only Today Z01.818 - Encounter for other preprocedural examination Medications: New 2 peg 3350-electrolytes 236-22.74-6.74 -5.86 gram (Golytely) until fecal effluent is clear; do not exceed a total volume of 2,000 mL 240 mL PO Q10M 4,000 mL 0RF 1 day Z12.11 - Encounter for screening for malignant neoplasm of colon bisacodyl (Dulcolax (bisacodyl)) 10 mg (2 x 5 mg) PO BEDTIME 4 tabs 0RF 2 days Coding Level of Care Code New Pt Level 3 (52888) Diagnoses Pre-op examination Z01.818 Tubular adenoma of colon D12.6
[2025-05-05 15:04] VITALS: BP 113/64; PULSE 86; O2SAT 97; BMI 31.9
--- OUTSIDE RECORDS SUMMARY | 2025-05-05 15:12 | XMS_ITS | Clinical Summary ---
Author Organization [employer] Address [address] [place] [address] [address] [place] [address] Care Team Providers Care Card Services Specialist Name Role Phone Grace Rodriguez MD Primary Care Provider [phone] Allergies No known active allergies Medications tadalafil (Cialis) 10 MG tablet Take 1 tablet (10 mg) by mouth if needed each day for erectile dysfunction. 10 tablet 1 03/06/20 24 Active alfuzosin ER (Uroxatral) 10 MG 24 hr tabletIndication s:Benign prostatic hyperplasia without lower urinary tract symptoms TAKE 1 TABLET BY MOUTH ONCE PER DAY. DO NOT CRUSH, CHEW, OR SPLIT. 90 tablet 1 12/04/19 25 Active hydroCHLOROthiaz colleen (HYDRODiuril) 25 MG tablet Take 1 tablet (25 mg) by mouth Once per day. 30 tablet 11 12/28/19 25 026 Active metoprolol succinate XL (Toprol-XL) 100 MG 24 hr tabletIndication s:Primary hypertension TAKE 1 TABLET BY MOUTH EVERY DAY. DO NOT CRUSH OR CHEW. 90 tablet 1 03/04/20 25 Active amLODIPine (Norvasc) 10 MG tablet TAKE 1 TABLET (10 MG) BY MOUTH ONCE PER DAY. 90 tablet 1 03/04/20 25 Active rosuvastatin (Crestor) 40 MG tablet TAKE 1 TABLET BY MOUTH EVERY DAY 90 tablet 1 04/28/20 25 Active rosuvastatin (Crestor) 40 MG tablet TOME 1 TABLETA POR VIA ORAL TODOS [place] SSOA 90 tablet 1 06/08/20 24 025 Discontinued Active Problems Problem Noted [...] Encounters Date Type Department Care Team Description 04/27/2025 Refill [facility] [address] [place] [address] Grace Rodriguez MD 03/04/2025 Refill [facility] [address] [place] [address] Grace Rodriguez MD Primary hypertension from Last 3 Months Immunizations Immunization Administration Dates Next Due Influenza injectable quadrivalent [...] 90 12/28/2024 10:02 AM EST Temperature 36.6 C (97.9 F) 12/28/2024 10:02 AM EST Respiratory Rate 18 12/28/2024 10:02 AM EST Oxygen Saturation 97% 03/20/2024 10:04 AM EDT Inhaled Oxygen Concentration - - Weight 93.9 kg (207 lb) 12/28/2024 10:02 AM EST Height 172.7 cm (5' 8 ) 12/28/2024 10:02 AM EST Body Mass Index 31.47 12/28/2024 10:02 AM EST Plan of Treatment Health Maintenance Due Date Last Done Comments CT Colonography 1966 Colonoscopy 1966 Colorectal Cancer Screening 1966 Dental Oral Exam 1966 FIT DNA/Cologuard 1966 FIT 1966 FOBT 1966 HIV Screening 1966 Sigmoidoscopy 1966 Disability Screening 1966 Alcohol/Substance Use Screening 1978 Hepatitis C [...] patient's age to complete this topic Meningococcal B Vaccine Aged Out No l onger eligible based on patient's age to complete [...] 12:00 AM EDT) Triglycerides 111 <150 mg/dL [facility] Comment:Desirable Triglyceri de: less than 150 mg/dLBorderline High Triglyceride 150-199 mg/dLHigh Triglyceride: 200-499 mg/dLVery High Triglyceride: greater than or equal to 5OO mg/dL Cholesterol 183 <200 mg/dL [facility] Comment:Desirable Cholestero l: less than 200 mg/dLBorderline High Cholesterol: 200-239 mg/dLHigh Cholesterol: greater than 239 mg/dL LDL Cholesterol Calculated 120(H) <100 mg/dL [facility] Comment:Desirable LDL: less than 100 mg/dLNear Optimal/Above Optimal LDL: 110- 129 mg/dLBorderline High LDL: 130-159 mg/dLHigh LDL: 160-189 mg/dLVery High LDL: greater than or equal to 190 mg/dL HDL Cholesterol 41 >40 mg/dL [facility] Comment:Desirable HDL: great er than 40 mg/dL Note: This HDL assay may give artificially low results in patients with liver disease. Blood Venous blood specimen / Unknown 03/07/2024 03/07/2024 us Grace Rodriguez MD LAB BLOOD ORDERABLES Final Re sult [facility] [address] [place], [place] [id number] [phone] from Last 3 Months or Most Recently Relevant to Health Maintenance Insurance Care Teams Card Services Specialist Relationship Specialty Start Date End Date Grace Rodriguez MD [address] [place] [id number] PCP - General Family Medicine 03/06/24 Rogelio Ladd MD. FACP [address] [place] [phone] Medical Oncologist Oncology 12/24/23
== END 2025-05-05 15:27 | disposition home or self-care (01) ==
LOC: HO.HGI 14:49
PROVIDERS: PCP Family Medicine; Visit Provider Nurse Practitioner
DX: Z01.818 Encounter for other preprocedural examination (principal); Z12.11 Encounter for screening for malignant neoplasm of colon; Z86.0101 Personal history of adenomatous and serrated colon polyps
CPT/HCPCS: 99203

== ENCOUNTER 2025-07-26 16:05 | Outpatient (AMB) | payer OTHER, SELFPAY ==
--- NOTE | 2025-07-26 16:06 | A.OFFVIS_ITS ---
Intake Visit Reasons: med follow up Intake Note: Patient presents today via telehealth for a med follow up Urology Meds- None Allergies to Antibiotic- No Known Allergies Blood Thinner- None Water Treatment Technician Required: No Accompanied by: Self / Same As Patient Allergies No Known Allergies Allergy (Verified 07/26/25 16:07) HPI Comments Details: 07/26/25--Ward is followed for BPH kidney stones and erectile dysfunction. History of Present Illness The patient is a 59-year-old male presenting with management of Benign Prostatic Hyperplasia (BPH), kidney stones, and erectile dysfunction. The patient has been experiencing difficulty with bladder emptying for the past 4 to 5 weeks, particularly when sitting, requiring multiple attempts to fully void. He is currently taking alfuzosin and Cialis for his conditions. A previous CT scan in August of the last year revealed tiny stones in each kidney, necessitating ongoing monitoring. 24 hr urine 05/18/24--Hypercalciuria, Hyperoxaluria. Results - CT scan (08/14/24): Multifocal punctate, less than 2 mm calculi throughout the pelvicalyceal system. -24 hr urine: 05/18/24-- Total volume 2.7 L, Calcium 256 mg; Oxalate 60 mg, Citrate 256 mg, Sodium 277. Plan 1. Benign Prostatic Hyperplasia (Bph) - Order a bladder and prostate ultrasound to assess prostate size. - Schedule an appointment for cystoscopy to evaluate the urinary tract. - Blood work for PSA to assess prostate health. 2. Kidney Stones - Continue monitoring kidney stones as per previous CT scan findings. Repeat 24 hr urine 3. Erectile Dysfunction - Continue current medication regimen with Cialis. --Ward is a 58-year-old male who is a new patient evaluation due to history of kidney stones. 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 He had a PET CT, 01/14/2024 which noted possible bilateral punctate renal stones versus renal vascular calcifications and exophytic renal cysts left kidney. The patient states that he has has kidney stones since 2014 and has had prior procedures including ureteroscopy and shockwave lithotripsy and he passed a stone about 3 years ago. His previous urologist told him he had calcium oxalate stones and to add lemon to his diet which he states that his has helped decrease his issues with making kidney stones. Discussed CT stone protocol and 24 hour urine collection further evaluation In addition he states that he has noticed erectile difficulties fgr about 3 years he consulted with online specialist and tried generic Viagra 25-50 mg which has not helped. He then tried Cialis 10 mg twice a day which has worked well for him. I will send a prescription for Cialis 10 mg twice a day weak with a GoodRx coupon to [facility] in [place]. PFSH Medical History Elevated cholesterol Plasmacytoma Erectile dysfunction Kidney stone Biceps tendon rupture High blood pressure disorder Surgical History H/O right knee surgery Hx of excision of mass Hx of hernia repair Hx laparoscopic cholecystectomy Hx of vasectomy Social History Household Members: Spouse Are you a primary healthcare representative to a significant other at home: No Do you presently have visiting nurse or other home services: No Patient Tobacco Use Status: Never used Tobacco service: No Current occupational status: employed Review of Systems Const All systems reviewed & are unremarkable except as noted in HPI and below Reports no additional complaints Eyes Reports no additional complaints ENT Reports no additional complaints Card Reports no additional complaints Resp Reports no additional complaints GI Reports no additional complaints Reports as per HPI Musc Reports no additional complaints Skin/Breast Reports system reviewed and no additional complaints, except as documented Neuro Reports no additional complaints Psych Reports no additional complaints Endo Reports no additional complaints Mariusz/Lymph Reports no additional complaints Aller/Immun Reports no additional complaints Telehealth Telehealth Telehealth Platform: [facility] Location of provider rendering services: practice address Location of patient: address on file Patient Identification confirmed using: Name, : Yes Telehealth method: video Patient verbally consented to treatment: Yes Patient verbally consented to billing insurance company: Yes Patient informed of any privacy concerns related to visit: Yes Results Reviewed Results Reviewed: Date of Service: 08/14/24 CT ABDOMEN AND PELVIS WITHOUT CONTRAST CLINICAL INFORMATION: Calculus of the kidney COMPARISON: CT from an outside institution dated February 20, 2023. TECHNIQUE: Multidetector volumetric imaging was performed from the superior aspect of the liver through the pubic symphysis. Sagittal and coronal reformatted images were obtained on the technologist's workstation. This CT examination was performed using dose optimization techniques as appropriate, variously including the following: *Automated exposure control *Adjustment of mA and/or kV according to patient size (this includes techniques or standardized protocols for targeted exams where dose is matched to indication/reason for exam; i.e. extremities or head) *Use of iterative reconstruction technique DLP: 604 mGy-cm FINDINGS: Submitted for interpretation on October 13, 2024. Limited evaluation of the intra-abdominal organs and vascular structures due to lack of IV contrast. 1.5 mm calcified nodule in the right lung bases and lingula are likely granulomata. LIVER, GALLBLADDER, AND BILIARY TREE: Liver measures 15 cm. Questionable low density right hepatic lobe too small to be fully characterized. Status post cholecystectomy. No intrahepatic or extrahepatic biliary ductal dilatation. PANCREAS: No peripancreatic fluid collections. No main pancreatic ductal dilatation. SPLEEN: 10 cm. ADRENAL GLANDS: No nodular lesions. KIDNEYS AND URETERS: Right kidney: Multiple, punctate, less than 2 mm calculi throughout the pelvicalyceal system. No hydronephrosis. 1.5 cm hypodensities in the corticomedullary junction and parapelvic, midportion. Nodular/ lobulations.. Left kidney: Multifocal punctate, less than 2 mm calculi throughout the pelvicalyceal system. No hydronephrosis. There is an exophytic, 1.2 cm fluid density lesion in the lateral lower pole. Nodular/ lobulations. BLADDER: Fluid filled and collapsed. GASTROINTESTINAL TRACT: No intestinal obstruction pattern. Abundant stool, large intestine. Appendix is normal. No pneumatosis intestinalis. No pneumoperitoneum. No ascites. ABDOMINAL WALL: Fat-containing umbilical hernia, small. Fat-containing right inguinal hernia. LYMPH NODES: Nonspecific prominent less than 1 cm lymph nodes in the mesenteric and retroperitoneal. VASCULAR: Calcified plaques, abdominal aorta. No aneurysm. PELVIC VISCERA: The prostate gland and seminal vesicles are not enlarged. OSSEOUS STRUCTURES: Multilevel spondylosis more conspicuous at L4-5 and L5-S1 resulting in bilateral neuroforamina stenosis and likely central spinal canal stenosis. IMPRESSION: Nonobstructing nephrolithiasis, bilaterally. Abnormal kidneys. Bilateral renal cysts. 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 Fat-containing umbilical and right inguinal hernias. Assessment & Plan Assessment & Plan (1) Weak urinary stream: Code(s): R39.12 - Poor urinary stream Category: Medical (2) BPH loc w urin obs/LUTS: Code(s): N40.1 - Benign prostatic hyperplasia with lower urinary tract symptoms Category: Medical (3) Erectile dysfunction: Code(s): N52.9 - Male erectile dysfunction, unspecified Category: Medical (4) Hypercalciuria: Code(s): R82.994 - Hypercalciuria Category: Medical (5) Hyperoxaluria: Code(s): R82.992 - Hyperoxaluria Category: Medical Plan Plan 1. Benign Prostatic Hyperplasia (Bph) - Order a bladder and prostate ultrasound to assess prostate size. - Schedule an appointment for cystoscopy to evaluate the urinary tract. - Blood work for PSA to assess prostate health. 2. Kidney Stones - Continue monitoring kidney stones as per previous CT scan findings. 3. Erectile Dysfunction - Continue current medication regimen with Cialis. Orders: Orders PSA,Total (Free>4and<10) 07/31/25 N40.1 - Benign prostatic hyperplasia with lower urinary tract symptoms US bladder 07/26/25 R39.12 - Poor urinary stream, N40.1 - Benign prostatic hyperplasia with lower urinary tract symptoms Patient Instructions: The patient had an opportunity to ask questions regarding treatment plan. The patient expressed understanding and agreement with the above treatment plan. The patient is aware they should contact our office by phone for worsening of their current condition or the appearance of new symptoms. Compliance is encouraged with any medications and followup testing that is ordered. It is a privilege to be allowed the opportunity to participate in the urologic care of your patient. If you have any questions or concerns regarding treatment for the above conditions please do not hesitate to contact me. The office telephone contact is [phone]. This note is constructed in part using voice recognition software. While every effort has been made to ensure accuracy on site wastewater systems technician errors may have been included. Yours sincerely, Daisy Steven MD Scribe Plan - Not visible on output: Patient was informed and verbally consented to the use of an ambient scribe for clinic note documentation during this visit. Coding Level of Care Code Tele Est Pt Level 4 (37386) Complex EM visit Add On G2211 Diagnoses Weak urinary stream R39.12 BPH loc w urin obs/LUTS N40.1 Erectile dysfunction N52.9 Hypercalciuria R82.994 Hyperoxaluria R82.992
== END 2025-07-26 16:30 | disposition home or self-care (01) ==
LOC: HO.HUSH 16:05
PROVIDERS: PCP Family Medicine; Visit Provider Urology
DX: N40.1 Benign prostatic hyperplasia with lower urinary tract symptoms (principal); R39.12 Poor urinary stream; N52.9 Male erectile dysfunction, unspecified; R82.994 Hypercalciuria; R82.992 Hyperoxaluria
CPT/HCPCS: 98006

== ENCOUNTER 2025-07-31 08:03 | Outpatient (REF) | payer OTHER, SELFPAY ==
[2025-07-31 08:37] LABS: MANUAL DIFF FLAG NO
[2025-07-31 09:02] LABS: Hematocrit 43.4 % (42.0-52.0); Hemoglobin 14.6 g/dl (14.0-18.0); Imm Gran Abs Auto 0.04 X10*3/uL (0.00-0.03); Imm Gran Pct Auto 0.7 % (0.0-0.4); Lymphocytes Absolute Auto 0.8 X10*3/uL (1.2-4.9); Mean Corpuscular HGB Conc 33.6 g/dl (31.0-36.0); Mean Corpuscular Hemoglobin 27.9 pg (27.0-33.0); Mean Corpuscular Volume 82.8 fL (80.0-98.0); NRBC Abs Auto 0.000 X10*3/uL (0.0-0.012); NRBC Pct Auto 0.0 /100WBC (0.0-0.2); Platelet Count 136 X10*3/uL (160-400); Red Blood Count 5.24 X10*6/uL (4.60-5.80); White Blood Count 5.6 X10*3/uL (4.8-10.8)
[2025-07-31 09:40] LABS: Alanine Aminotransferase 34 U/L (0-40); Albumin Level 4.7 g/dL (3.5-5.0); Alkaline Phosphatase 75 U/L (39-117); Anion Gap 11 (12-20); Aspartate Amino Transferase 28 U/L (5-37); Blood Urea Nitrogen 19 mg/dL (9-16); Calcium 9.1 mg/dL (8.4-10.2); Carbon Dioxide 26 mmol/L (22-29); Chloride 109 mmol/L (96-108); Cholesterol 192 mg/dL (<200); Estimated Glomerular Filt Rate > 60; HDL Cholesterol 46 mg/dL (>40); Potassium 3.8 mmol/L (3.3-5.1); Sodium 142 mmol/L (135-145); Total Protein 7.6 g/dL (6.5-8.0); Triglycerides 104 mg/dL (<150)
[2025-07-31 09:50] LABS: PSA,Total (Free>4and<10) 1.20 ng/mL (0.00-4.00)
[2025-08-02 04:17] LABS: HBS Num1 11.89 mIU/mL (0-7.99); HBc Num1 0.16 S/CO (0.00-0.79); HBsAGNum1 0.34 S/CO (0.00-0.99); HIV Num 1 0.05 S/CO (0.00-0.99); Hepatitis B Surface Antigen Negative (Negative); ~HepC Num1 0.15 S/CO (0.00-0.79); ~Hepatitis C Antibody Nonreactive (Nonreactive)
[2025-08-02 05:05] LABS: HBS Num2 11.64 mIU/mL (0-7.99); HBS Num3 11.48 mIU/mL (0-7.99); ~Hepatitis B Surface Antibody GRAYZONE (Nonreactive)
== END 2025-07-31 08:04 | disposition home or self-care (01) ==
LOC: HO.LAB 08:03
PROVIDERS: Absent Provider Family Medicine; PCP Family Medicine; Visit Provider Urology
DX: Z12.5 Encounter for screening for malignant neoplasm of prostate (principal); Z13.29 Encounter for screening for other suspected endocrine disorder; N40.1 Benign prostatic hyperplasia with lower urinary tract symptoms; E66.9 Obesity, unspecified
CPT/HCPCS: 36415; 80053; 80061; 84153; 84443; 85025; 86704; 86706; 86803; 87340; 87389

== ENCOUNTER 2025-10-05 16:16 | Outpatient (REF) | payer OTHER, SELFPAY ==
--- NOTE | ~2025-10-05 | US_ITS ---
EXAMINATION: US PELVIS LIMITED (BLADDER) CLINICAL INFORMATION: Measure prostate. Poor urinary stream.. COMPARISON: None available. TECHNIQUE: Real-time imaging of the bladder. FINDINGS: BLADDER: Well distended and normal. Bilateral ureteral jets are demonstrated. Prevoid bladder volume is 221 mL. Postvoid bladder volume is 6 mL. Prostate: Measures 3.9 x 3.2 x 4.1 cm. Volume 26.5 mL. US/US bladder IMPRESSION: Prostate volume 26.5 mL. This is within range of normal variation.. Electronically signed by: Salvador Herman MD 10/06/2025 01:07 PM JAMES
--- OUTSIDE RECORDS SUMMARY | 2025-10-05 17:17 | XMS_ITS | Encounter Summary ---
Author Organization [employer] Address [address] [place] [address] Care Team Providers Care Science And Operations Officer Name Role Phone Grace Rodriguez MD Primary Care Provider [phone] Reason for Visit * Reason Comments Med Refill Encounter Details Date Type Department Care Team ([facility] st Contact Info) Description 08/11/2024 Refill [facility] [address] [place] [address] Yelena Mackay FNP Benign prostatic hyperplasia without [...] documented as of this encounter Care Teams Science And Operations Officer Relationship Specialty Start Date End Date Grace Rodriguez MD [address] [place] [address] [phone] PCP - General Family Medicine 03/06/24 Rogelio Ladd MD. FACP [address] [place] [id number] Medical Oncologist Oncology 12/24/23 documented as of this encounter
--- OUTSIDE RECORDS SUMMARY | 2025-10-05 17:17 | XMS_ITS | Encounter Summary ---
Author Organization [employer] Address [address] [place] [address] Care Team Providers Care All Around Patternmaker Name Role Phone Grace Rodriguez MD Primary Care Provider [phone] Encounter Details Date Type Department Care Team ([facility] st Contact Info) Description 09/27/2025 Telephone [facility] [address] [place], [place] [phone] Winifred Jung RN [address] [place] [address] Social History Tobacco Use Types Packs/Day Years Used Date Smoking Tobacco: Never Passive Smoke Exposure: Past Smokeless Tobacco: Never Alcohol Use Standard Drinks/Week Comments Yes 2 (1 standard drink = 0.6 oz pur e alcohol) Socially Depression Answer Date Recorded Patient Health Questionnaire-9 Score 0 07/23/2025 Patient Health Questionnaire-9 Score 0 07/23/2025 Last PHQ-9: Questionnaire Data Not on file 0 07/23/2025 Housing Stability Answer Date Recorded What is your housing situation today? I have marky ramirez 07/16/[address] you li ve. Do you have problems with any of the following? None of the above 07/16/2025 Food Insecurity Answer Date Recorded Within the past 12 months, y ou worried that your food would run out before you got money to buy more: Never True 07/16/2025 Within the past 12 months,th e food you bought just didn't last and you didn't have enough money to get more: Never True 10/2025 Transportation Answer Date Recorded In the past 12 months, has l ack of transportation kept you from medical appts, meetings, work or from getting things needed for daily living? No 07/16/2025 Utilities Answer Date Recorded In the past 12 months, has t he electric, gas, oil or water company threatened to shut off services in your home? 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 Last referral >1 year old and Urology states needs a new referral. Pt checked with them today and the information is still not available. Will send to referrals. documented in this encounter Plan of Treatment Not on file documented as of this encounter Visit Diagnoses Not on filedocumented in this encounter Additional Health Concerns Assessment Noted Time PHQ-9 Depression Total Score: 0 07/23/20 11:29 AM EDT documented as of this encounter Care Teams All Around Patternmaker Relationship Specialty Start Date End Date Grace Rodriguez MD [address] [place] [address] PCP - General Family Medicine 03/06/24 Rogelio Ladd MD. FACP [address] [place] [address] Medical Oncologist Oncology 12/24/23 documented as of this encounter
--- OUTSIDE RECORDS SUMMARY | 2025-10-05 17:17 | XMS_ITS | Data Portability ---
Author Organization [place] [facility], Allergy Address [address] [place] [phone] Care Team Providers Care Separator Inserter Name Role Phone JONAH WANG Primary Care Provider [phone] MUNA CASTELLANO Referring Provider Assessment Encounter Date [...] all questions answered. He is traveling to [place] for 2 weeks in April, therefore, suggest [...] At that time we will repeat FOL. elena Not available 06/08/2024 16:22:19 Plan of Treatment Reminders Order Date Submit Date Provider Last Modified By Organization Details Last Modified Time Details Appointments None recorded. Lab None recorded. Referral None recorded. Procedures None recorded. Surgeries direct microscopic laryngoscop y (SURG) 2023 024 [email or web address] [id number] Not available 4 09:08:56 Imaging PET-CT, skull base to mid-thigh scan - f/u to abnl scan at [place] 2023 024 [email or web address] [facility], [address], [place], [address], 17:27:47 Medication Orders None recorded. Patient TargetsNo targets recorded. Patient InstructionsNo instructions recorded. Reason for Referral None Reported. Results Created Date Observation Date Name Description Value Unit Range Abnormal Flag Note LastModifiedBy Organization Detail LastModifiedTime 05/22/20 24 05/21/2024 PT subtl e whole body CPT 42575 [facility] te PET/CT Imagin g Access ion Number : [id number] 004 Kinsey t Name: Ward Alvarado Record Number : [id number] Date of : 1965 Date of Exam: 2023 Referr ing Physic gordon: Shaun lin , [facility] [address] [place] [address] Exam: PT SUBTLE Whole Body CPT 81132 Room Descri ption: [facility] o Pt4 EXAM: PET-CT Histor y: [...] Mild diffus e FDG uptake in the custom feed mill operator ior wall of the nasoph arynx, axial [...] axial image 76, maximu m SUV 3.8, corres pondin g to a subcen timete r lucent [...] or aspect of T6 verteb ral body, corres ponjose angel g to a lucent lesion on CT may be metast atic or degene rative .. 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 Procedures Surgical History Date Name Laterality Status Provider Name and Address Organization Details Recorded Time 05/28/20 24 direct laryngoscopy with operating microscope completed JUNI IVORY MD [address], [place], [address], [place] [facility] 05/28/2024 11:54:58 05/28/20 24 tonsillectomy completed JUNI IVORY MD [address], [place], [address], [place] [facility] 05/28/2024 11:55:11 04/06/20 24 Fiberoptic Laryngoscopy (Comprehensive) completed JUNI IVORY MD [address], [place], [address], [place] [facility] 04/06/2024 15:26:55 selective neck dissection of cervical lymph nodes completed JUNI IVORY MD [address], [place], [address], [facility] - [facility] 04/06/2024 14:59:59 Imaging Results None recorded. Procedure Notes None recorded. Medical Equipment None [...] TOME RODNEY TABLETA TODOS LOS D EN LA MA JACKELIN active Not Available Not Available No t [...] TOME RODNEY TABLETA TODOS LOS D EN LA MA JACKELIN. DO NOT CRUSH, CHEW OR SPLIT active [...] Updated DateTime 04/06/2024 170.18 cm 32.1 kg/m2 80871.44 g [facility] 04/06/2024 14:38:02 Date Recorded Body height Body mass index (BMI) Body weight Provider Name and Address Organization Details Last Updated DateTime 06/08/2024 170.18 cm 30.4 kg/m2 41576.92 g [facility] 06/08/2024 14:01:42 Social History None recorded. Functional Status None recorded. Mental Status None recorded. Family History Nothing Reported. Medical History No medical history recorded. Past Encounters Encounter ID Performer Location Encounter Start Date Encounter Closed Date Diagnosis/Indication Diagnosis SNOMED-CT Code Diagnosis ICD10 Code Diagnosis IMO Codes Diagnosis Note [id number] JUNI BURDICK MD [facility] [address] [phone] 04/06/2024 14:19:53 04/06/2024 15:30:36 Abnormal findings on diagnostic imaging of skull and head 702457682 R93.0 Plasmacytoma 851106825 C 90.31 Polyp of vocal cord 9078 [...] dental injury, [place]. [id number] JUNI BURDICK MD [facility] [address] [address] 06/08/2024 13:55:07 06/08/2024 14:18:48 History of malignant hematologic neoplasm 970560433 Z85.79 Chronic hoarseness 57165 14509 105 R49.0 Health Concerns Section Related Observation LastModified by Organization Detai ls LastModified Time None Recorded Concern Status LastModified by Organization Details LastModified Time None Recorded Advance Directives Directive None Recorded Payers Insurance Date Sequence Insurance Name Policy Number Policy Moseley Covered Member ID Moseley Member ID Guarantor Name 06/08/2024 1 [facility] ([facility] Ward Alvarado [id number] Ward Christiano Notes Date Note Type Note Provider Name and Address Organization Details Recorded Time 04/06/2024 text/html Hx of plasmacytoma right neck..s/p XRT and subsequent dissection. Now with abnl surveillance PET scan. 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 He reports some bleeding the first five days. He has been able to eat solids since Saturday. He requests a return to work note. JUNI IVORY MD [address] [place] [address],[address], [address], [place] [facility] 06/08/2024 16:22:57
--- OUTSIDE RECORDS SUMMARY | 2025-10-05 17:17 | XMS_ITS | Clinical Summary ---
Author Organization [employer] Address [address] [place] [address] Care Team Providers Care Telemarketer Name Role Phone Grace Rodriguez MD Primary Care Provider [phone] Allergies No known active allergies Medications tadalafil [...] OR SPLIT. 90 tablet 1 5 Active Bisacodyl EC 5 MG EC tablet TAKE 2 TABLETS BY MOUTH AT BEDTIME FOR 2 DAYS 5 Active GaviLyte-G 236 g solution PLEASE SEE ATTACHED FOR DETAILED DIRECTIONS 5 Active amLODIPine (Norvasc) 10 MG tablet TAKE 1 TABLET (10 MG) BY MOUTH ONCE PER DAY. 90 tablet 1 5 Active metoprolol succinate XL (Toprol-XL) 100 MG 24 hr tabletIndications :Primary hypertension TAKE 1 TABLET BY MOUTH EVERY DAY. DO NOT CRUSH OR CHEW. 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 Overview (01/22/2024): Followed by pawan last seen 12/24/23 Removed in 2019 Received Radiation therapy In remission HTN (hypertension) 06/26/2023 Assessment & Plan (03/13/2024 11:50 PM [...] Encounters Date Type Department Care Team Description 09/27/2025 Telephone [facility] [address] [place] [phone] Winifred Jung RN 09/17/2025 3:00 PM EST Clinical Support [facility] [address] [place] [address] Tavia Briggs, DELISA Encounter for immunization 09/17/2025 Travel 09/16/2025 Telephone [facility] [address] [place] [address] Grace Rodriguez MD Referral 08/29/2025 Refill [facility] [address] [place] [address] Grace Rodriguez MD Primary hypertension 08/20/2025 3:00 PM EDT Immunization [facility] [address] [place] [address] Sallie Wayne, DELISA Encounter for immunization 08/20/2025 Travel 08/12/2025 Results Follow-Up [facility] [address] [place] [address] Grace Rodriguez MD CBC auto differential, Comprehensive Metabolic Panel, Lipid Panel, Standard, Additional followed-up results: 6 08/10/2025 Refill [facility] [address] [place] [address] Grace Rodriguez MD 07/31/2025 Orders Only GENERIC EXTERNAL DATA DEPARTMENT Provider, Generic External Data 07/29/2025 3:00 PM EDT Immunization [facility] [address] [place] [address] Sallie Wayne RN Encounter for immunization 07/29/2025 Travel 07/28/2025 Telephone [place] [employer] [address] [place] [address] [phone] Grace Rodriguez MD 07/23/2025 11:15 AM EDT Office Visit [facility] [address] [place] [phone] Grace Rodriguez MD 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); Chronic pain of right knee; Chronic pain of left knee; Obesity with serious comorbidity, unspecified class, unspecified obesity type; Encounter for health-related screening 07/23/2025 Travel 07/22/2025 Travel 07/22/2025 Orders Only [facility] [address] [place] [phone] Brett Paredes MD 07/19/2025 Telephone [facility] [address] [place] [address] Grace Rodriguez MD chart prep 07/16/2025 Patient Outreach [facility] [address] [place] [phone] Grace Rodriguez MD Pre-visit Planning (SDOH screening negative and Tobacco screening negative) from Last 3 Months Immunizations Immunization Administration Dates Next Due HepB-CpG 09/17/2025,08/20/2025 Influenza injectable quadrivalent preservative f ree 08/30/2023 Influenza, Injectable, MDCK, preservative free 0 11/17/2024 Influenza, seasonal, injectable, preservative fr ee 07/29/2025 Pfizer Covid-19 Vaccine 12+ 08/30/2023 Pneumococcal Conjugate PCV 20 03/13/2024 Tdap 03/13/2024 Zoster, Recombinant 07/29/2025 Family History Medical History Relation Name Comments [...] Sign Reading Time Taken Comments Blood Pressure 130/87 07/23/2025 11:28 AM EDT Pulse 78 07/23/2025 11:28 AM EDT Temperature 36.6 C (97.8 F) 07/23/2025 11:28 AM EDT Respiratory Rate 20 07/23/2025 11:28 AM EDT Oxygen Saturation 98% 07/23/2025 11:28 AM EDT Inhaled Oxygen Concentration - - Weight 94.9 kg (209 lb 3.2 oz) 07/23/2025 11:28 AM EDT Height 170.2 cm (5' 7 ) 07/23/2025 11:28 AM EDT Body Mass Index 32.77 07/23/2025 11:28 AM EDT Plan of Treatment Health Maintenance Due Date Last Done Comments CT Colonography 1965 Colonoscopy 1965 Dental Oral Exam 1965 FIT 1965 Sigmoidoscopy 1966 Alcohol/Substance Use Screening 1978 Dental Prophylaxis 01/15/2025 07/17/2024 COVID-19 Vaccine (2 - 2024-2 6 season) 2025 08/30/2023 Dental X-Ray: Bitewings 07/18/2025 07/17/2024 Zoster Vaccines (2 of 2) 09/23/2025 07/29/2025 FOBT 07/07/2026 07/07/2025, 07/07/2025 SDOH Screening 07/16/2026 07/16/2025 Disability Screening 07/22/2026 07/22/2025 Depression Screening 07/23/2026 07/23/2025, 07/23/2025 Tobacco Screening 07/23/2026 07/23/2025 Dental X-Ray: Full Mouth 07/18/2027 07/17/2024 Colorectal Cancer Screening 07/07/2030 FIT DNA/Cologuard 07/07/2030 07/07/2025, 07/07/2025 Lipid Panel 07/31/2030 07/31/2025, 03/07/2024 DTaP/Tdap/Td Vaccines (2 - T d or Tdap) 03/13/2034 03/13/2024 RSV Patients and Patients Aged 60 years or older (1 - 1-dose 75+ series) 2041 Pneumococcal Vaccine: 50+ Years Completed 03/13/2024 Influenza Vaccine Completed 07/29/2025, 11/17/2024, 08/30/2023 HIV Screening Completed 07/31/2025 Hepatitis C Screening Completed 07/31/2025 Hepatitis B Vaccines Completed 09/17/2025, 08/20/2025 HIB Vaccines Aged Out No longer eligi [...] Procedure Name Priority Date/Time Associated Diagnosis Comments PSA, TOTAL WITH REFLEX TO PSA, FREE Routine 07/31/2025 8:36 AM EDT HEPATITIS B SURFACE ANTIGEN, EIA Routine 07/31/2025 8:36 AM EDT Encounter for health-related screening HEPATITIS B CORE AB TOTAL Routine 07/31/2025 8:36 AM EDT Encounter for health-related screening HEPATITIS B SURFACE ANTIBODY, QUALITATIVE Routine 07/31/2025 8:36 AM EDT Encounter for health-related screening HEPATITIS C AB W/REFL TO HCV RNA, QN, PCR Routine 07/31/2025 8:36 AM EDT Encounter for health-related screening HIV 1/2 ANTIGEN/ANTIBODY, FOURTH GENERATION W/RFL Routine 07/31/2025 8:36 AM EDT Encounter for health-related screening TSH W/REFLEX TO FT4 Routine 07/31/2025 8 :36 AM EDT Obesity with serious comorbidity, unspecified class, unspecified obesity type LIPID PANEL, STANDARD Routine 07/31/2025 8:36 AM EDT Obesity with serious comorbidity, unspecified class, unspecified obesity type COMPREHENSIVE METABOLIC PANEL Routine 07/31/2025 8:36 AM EDT Obesity with serious comorbidity, unspecified class, unspecified obesity type CBC WITH AUTO DIFFERENTIAL Routine 07/31/2025 8:36 AM EDT Obesity with serious comorbidity, unspecified class, unspecified obesity type LAB COLOGUARD COLON CANCER SCREEN Routine 07/07/2025 12:14 PM EDT PROPHYLAXIS - ADULT Routine 07/17/2024 2 :00 PM EDT INTRAORAL - COMPLETE SERIES OF RADIOGRAPHIC IMAGES Routine 07/17/2024 2:00 PM EDT from Last 3 Months or Most Recently Relevant to Health Maintenance Results * TSH W/Reflex to FT4 (07/31/2025 8:36 AM EDT) TSH reflex Free T4 3.10 0.32 - 4.0 uIU/mL [facility] Blood Venous blood specimen / Unknown 07/31/2025 8:36 AM EDT 07/31/2025 8:36 AM EDT us Grace Rodriguez MD LAB BLOOD ORDERABLES Final Re sult [facility] [address] [place] [phone] * PSA, Total With Reflex to PSA, Free (07/31/2025 8:36 AM EDT) PSA,Total (Free>4and<10) 1.20 0.00 - 4.00 ng/mL [facility] Comment:A Free PSA was not p erformed: The percentage of Free PSA can be used to enhance the differentiation of prostate cancer from benign prostatic disease in subjects whose PSA levels are between 4.0 and 10.0 ng/mL. For subjects whose PSA levels are below 4.0 or above 10.0 ng/mL, the risk of prostate cancer is determined on the basis of the PSA alone. Therefore the % Free PSA is recommended only for those subjects whose PSA levels are between 4.0 and 10.0 ng/mL.PSA methodology: Cook Alinity i ChemiluminescentMicroparticle Immunoassay (CMIA) 07/31/2025 8:36 AM EDT 07/31/2025 8:36 AM EDT us Generic External Data Provider LAB BLOOD ORDERAB LES Final Result [facility] [address] [place] [phone] * (ABNORMAL) CBC auto differential (07/31/2025 8:36 AM EDT) White Blood Count 5.6 4.8 - 10.8 X10*3/uL [facility] Red Blood Count 5.24 4.60 - 5.80 X10*6/uL [facility] Hemoglobin 14.6 14.0 - 18.0 g/dl [facility] Hematocrit 43.4 42.0 - 52.0 % [facility] Mean Corpuscular Volume 82.8 80.0 - 98.0 fL [facility] Mean Corpuscular Hemoglobin 27.9 27.0 - 33.0 pg [facility] Mean Corpuscular HGB Conc 33.6 31.0 - 36.0 g/dl [facility] Red Cell Distribution Width 14.2 11.0 - 16.0 % [facility] Platelet Count 136(L) 160 - 400 X10*3/uL [facility] Mean Platelet Volume 10.2 9.4 - 12.4 fL [facility] Neutrophils Percent Auto 70.0 45 - 73 % [facility] Imm Gran Pct Auto 0.7(H) 0.0 - 0.4 % [facility] Lymphocytes Percent Auto 13.3(L) 20 - 40 % [facility] Monocytes Percent Auto 13.1(H) 2 - 11 % [facility] Eosinophils Percent Auto 2.5 0 - 4 % [facility] Basophils Percent Auto 0.4 0 - 2 % [facility] NRBC Pct Auto 0.0 0.0 - 0.2 /100WBC [facility] Neutrophils Absolute Auto 3.9 2.0 - 8.3 x10*3/uL [facility] Imm Gran Abs Auto 0.04(H) 0.00 - 0.03 X10*3/uL [facility] Lymphocytes Absolute Auto 0.8(L) 1.2 - 4.9 X10*3/uL [facility] Monocytes Absolute Auto 0.7 0.1 - 1.2 X10*3/uL [facility] Eosinophils Absolute Auto 0.1 0.0 - 0.4 X10*3/uL [facility] Basophils Absolute Auto 0.0 0.0 - 0.2 X10*3/uL [facility] NRBC Abs Auto 0.000 0.0 - 0.012 X10*3/uL [facility] Blood Venous blood specimen / Unknown 07/31/2025 8:36 AM EDT 07/31/2025 8:36 AM EDT us Grace Rodriguez MD LAB BLOOD ORDERABLES Final Re sult [facility] [address] [place] [phone] * Hepatitis C Antibody with Reflex to HCV, RNA, Quantitative, Real-Time PCR (07/31/2025 8:36 AM EDT) Hepatitis C Antibody Nonreactive Nonreactive [facility] Comment:Antibodies to HCV no t detected; does not exclude early acuteHCV infection. Blood Venous blood specimen / Unknown 07/31/2025 8:36 AM EDT 07/31/2025 8:36 AM EDT Grace Rodriguez MD LAB BLOOD ORDERABLES Final Re sult Performing Organization Address [facility] [address]/[facility] Co de Phone Number [facility] [address] [place] [phone] * Hepatitis B surface antigen, EIA (07/31/2025 8:36 AM EDT) Hepatitis B Surface Ag Negative Negative [facility] Blood Venous blood specimen / Unknown 07/31/2025 8:36 AM EDT 07/31/2025 8:36 AM EDT Grace Rodriguez MD LAB BLOOD ORDERABLES Final Re sult Performing Organization Address [facility] Co sd Phone Number [facility] [address] [place] [phone] * Hepatitis B Core Antibody, Total (07/31/2025 8:36 AM EDT) Pathologist [facility] Hepatitis B Core Antibody Nonreactive Nonreactive [facility] Blood Venous blood specimen / Unknown 07/31/2025 8:36 AM EDT 07/31/2025 8:36 AM EDT Grace Rodriguez MD LAB BLOOD ORDERABLES Final Re sult Performing Organization Address [facility] [address]/[facility] de Phone Number [facility] [address] [place] [phone] * HIV-1/2 Antigen and Antibodies, Fourth Generation, with Reflexes (07/31/2025 8:36 AM EDT) HIV AB/AG Nonreactive Nonreactive [facility] Comment:HIV-1 p24 Ag and/or HIV-1/HIV-2 Ab not detected.A test result that is nonreactive does not exclude thepossibility of exposure to or infection with HIV-1 and/orHIV-2. Nonreactive results in this assay for individualswith prior exposure to HIV-1 and/or HIV-2 may be due toantigen and antibody levels that are below the limit ofdetection of this assay.The [employer] HIV Ag/Ab Combo assay result andsupplemental assay results should be interpreted inconjunction with the patient's clinical presentation,history and other laboratory results. If the results areinconsistent with clinical evidence, additional testing issuggested to confirm the result. Blood Venous blood specimen / Unknown 07/31/2025 8:36 AM EDT 07/31/2025 8:36 AM EDT Grace Rodriguez MD LAB BLOOD ORDERABLES Final Re sult Performing Organization Address [facility] [address]/[facility] Co de Phone Number [facility] [address] [place] [phone] * Hepatitis B Surface Antibody, Qualitative (07/31/2025 8:36 AM EDT) ~Hepatitis B Surface Antibody GRAYZONE Nonreactive [facility] Comment:GRAYZONE: 8.00 mIU/m L TO 11.99 mIU/mLTHE IMMUNE STATUS OF THE INDIVIDUAL SHOULD BE FURTHERASSESSED BY CONSIDERING OTHER FACTORS, SUCH CLINICALSTATUS, FOLLOW-UP TESTING, ASSOCIATED RISK FACTORS, AND THEUSE OF ADDITIONAL DIAGNOSTIC INFORMATION. Blood Venous blood specimen / Unknown 07/31/2025 8:36 AM EDT 07/31/2025 8:36 AM EDT Grace Rodriguez MD LAB BLOOD ORDERABLES Final Re sult Performing Organization Address [facility] [address]/[facility] Co de Phone Number [facility] [address] [place] [address] [phone] * (ABNORMAL) Lipid Panel, Standard (07/31/2025 8:36 AM EDT) Triglycerides 104 <150 mg/dL [facility] Comment:Desirable Triglyceri de: less than 150 mg/dLBorderline High Triglyceride 150-199 mg/dLHigh Triglyceride: 200-499 mg/dLVery High Triglyceride: greater than or equal to 5OO mg/dL Cholesterol 192 <200 mg/dL [facility] Comment:Desirable Cholestero l: less than 200 mg/dLBorderline High Cholesterol: 200-239 mg/dLHigh Cholesterol: greater than 239 mg/dL LDL Cholesterol Calculated 126(H) <100 mg/dL [facility] Comment:Desirable LDL: less than 100 mg/dLNear Optimal/Above Optimal LDL: 110- 129 mg/dLBorderline High LDL: 130-159 mg/dLHigh LDL: 160-189 mg/dLVery High LDL: greater than or equal to 190 mg/dL HDL Cholesterol 46 >40 mg/dL [facility] Comment:Desirable HDL: great er than 40 mg/dL Note: This HDL assay may give artificially low results in patients with liver disease. Blood Venous blood specimen / Unknown 07/31/2025 8:36 AM EDT 07/31/2025 8:36 AM EDT us Grace Rodriguez MD LAB BLOOD ORDERABLES Final Re sult [facility] [address] [place] [phone] * (ABNORMAL) Comprehensive Metabolic Panel (07/31/2025 8:36 AM EDT) Sodium 142 135 - 145 mmol/L [facility] Potassium 3.8 3.3 - 5.1 mmol/L [facility] Chloride 109(H) 96 - 108 mmol/L [facility] Carbon Dioxide 26 22 - 29 mmol/L [facility] Anion Gap 11(L) 12 - 20 [facility] Urea Nitrogen (BUN) 19(H) 9 - 16 mg/dL [facility] Creatinine, Serum 1.13 0.5 - 1.4 mg/dL [facility] Estimated Glomerular Filt Rate >60 [facility] Comment:Chronic Kidney Disea se: Estimated GFR < 60 mL/min/1.19p0Vxumxd Kidney Disease: Estimated GFR < 15 mL/min/1.73m2 Glucose 99 60 - 115 mg/dL [facility] Calcium 9.1 8.4 - 10.2 mg/dL [facility] Bilirubin, Total 0.5 0.0 - 1.0 mg/dL [facility] Aspartate Amino Transferase 28 5 - 37 U/L [facility] Alanine Aminotransferase 34 0 - 40 U/L [facility] Total Protein 7.6 6.5 - 8.0 g/dL [facility] Albumin Level 4.7 3.5 - 5.0 g/dL [facility] Alkaline Phosphatase 75 39 - 117 U/L [facility] Blood Venous blood specimen / Unknown 07/31/2025 8:36 AM EDT 07/31/2025 8:36 AM EDT Grace Rodriguez MD LAB BLOOD ORDERABLES Final Re sult [facility] [address] [place] [phone] * Cologuard?? colon cancer screening (07/07/2025 12:14 PM EDT) Stool (Rectum) Historical Provider LAB MOLECULAR DIAGNOSTICS ORDERABLES Final Result from Last 3 Months Insurance [facility] Care Teams Telemarketer Relationship Specialty Start Date End Date Grace Rodriguez MD [address] [place] [address] [phone] PCP - General Family Medicine 03/06/24 Rogelio Ladd MD. FACP [address] [place] [phone] Medical Oncologist Oncology 12/24/23
--- OUTSIDE RECORDS SUMMARY | 2025-10-05 17:17 | XMS_ITS | Encounter Summary ---
Author Organization [employer] Address [address] [place] [address] [address] [place] [address] Care Team Providers Care Truck Driver Teamster Name Role Phone Grace Rodriguez MD Primary Care Provider [phone] Reason for Visit * Reason Comments Med Change Request Encounter Details Date Type Department Care Team ([facility] st Contact Info) Description 12/24/2023 Refill [facility] [address], [place] [phone] Yelena Mackay FNP Primary hypertension Social History [...] hypertension documented in this encounter Care Teams Truck Driver Teamster Relationship Specialty Start Date End Date Grace Rodriguez MD [address] [place], [place] [phone] PCP - General Family Medicine 03/06/24 Rogelio Ladd MD. FACP [address] [place] [address] Medical Oncologist Oncology 12/24/23 documented as of this encounter
--- OUTSIDE RECORDS SUMMARY | 2025-10-05 17:17 | XMS_ITS | Encounter Summary ---
Author Organization [employer] Address [address] [place] [address] Care Team Providers Care Scenario Writer Name Role Phone Grace Rodriguez MD Primary Care Provider [phone] Encounter Details Date Type Department Care Team (Late st Contact Info) Description 07/22/2025 Orders Only [facility] [address] [place], [place] [phone] ProviderBrett MD Social History Tobacco Use Types Packs/Day Years [...] PM EDT documented as of this encounter Functional Status * Over the past 2 weeks, how often have you been bothered by any of the following problems? Question Answer Date of Assessment Author Patient Health Questionnaire -2 Score 0 07/23/2025 11:29 AM EDT Sena Pimentel [place] * Little interest or pleasure in doing things Answer Date of Assessment Author Not at all 07/23/2025 11:29 AM EDT Sena Pimentel MA * Feeling down, depressed, or hopeless Answer Date of Assessment Author Not at all 07/23/2025 11:29 AM EDT Sena Pimentel MA * Trouble falling or staying asleep, or sleeping too much Answer Date of Assessment Author Not at all 07/23/2025 11:29 AM EDT Sena Pimentel MA * Feeling tired or having little energy Answer Date of Assessment Author Not at all 07/23/2025 11:29 AM EDT Sena Pimentel MA * Poor appetite or overeating Answer Date of Assessment Author Not at all 07/23/2025 11:29 AM EDT Sena Pimentel MA * Feeling bad about yourself - or that you are a failure or have let yourself or your family down Answer Date of Assessment Author Not at all 07/23/2025 11:29 AM EDT Sena Pimentel MA * Trouble concentrating on things, such as reading the newspaper or watching television Answer Date of Assessment Author Not at all 07/23/2025 11:29 AM EDT Sena Pimentel MA * Moving or speaking so slowly that other people could have noticed? Or the opposite - being so fidgety or restless that you have been moving around a lot more than usual. Answer Date of Assessment Author Not at all 07/23/2025 11:29 AM EDT Sena Pimentel MA * Thoughts that you would be better off or hurting yourself in some way Answer Date of Assessment Author Not at all 07/23/2025 11:29 AM EDT Sena Pimentel MA * Patient Health Questionnaire-9 Score Answer Date of Assessment Author 0 07/23/2025 11:29 AM EDT Sena Pimentel MA documented as of this encounter Plan of Treatment Not on file documented as of this encounter Procedures Procedure Name Priority Date/Time Associated Diagnosis Comments LAB COLOGUARD COLON CANCER SCREEN Routine 07/07/2025 12:14 PM EDT documented in this encounter Results * Cologuard?? colon cancer screening (07/07/2025 12:14 PM EDT) Stool (Rectum) Historical Provider LAB MOLECULAR DIAGNOSTICS ORDERABLES Final Result documented in this encounter Visit Diagnoses Not on filedocumented in this encounter Additional Health Concerns Assessment Noted Time PHQ-9 Depression Total Score: 2 03/06/20 24 8:35 AM EDT documented as of this encounter Care Teams Scenario Writer Relationship Specialty Start Date End Date Grace Rodriguez MD [address] [place] [address] PCP - General Family Medicine 03/06/24 Rogelio Ladd MD. FACP [address] [place] [address] Medical Oncologist Oncology 12/24/23 documented as of this encounter
== END 2025-10-05 16:17 | disposition home or self-care (01) ==
LOC: HO.US 16:16
PROVIDERS: Visit Provider Urology
DX: N40.1 Benign prostatic hyperplasia with lower urinary tract symptoms (principal); R39.12 Poor urinary stream
CPT/HCPCS: 76857

== ENCOUNTER → 2025-10-05 16:17 | Outpatient (BNV) | payer OTHER, SELFPAY | PROVIDERS: Visit Provider Radiology Diagnostic Ultrasound | DX: R39.12 Poor urinary stream (principal) | CPT/HCPCS: 76857 ==